=== PATIENT | female | born 1945 | race Caucasian/White ===

== ENCOUNTER 2016-03-16 08:01 | Day surgery (SDC) | payer OTHER ==
[~2016-03-16] VITALS: Ht 144.8 cm; Wt 68.3 kg
[~2016-03-16 08:01] MED LIST: CARV12.5 PO; DVN/160 PO; MAGN400T6 PO; OMEP40CA41 PO; PRAV20TA PO
[2016-03-16] MEDS ORDERED: MULT-513 PO (08:53)
[2016-03-16] MEDS ORDERED: ASPI81TA28 PO (08:53)
[2016-03-16 08:54] VITALS: BP 180/71; PULSE 74; TEMP 36.4; O2SAT 97; Ht 144.8 cm; Wt 68.3 kg
[2016-03-16] MEDS ORDERED: VITACAP26 PO (08:54)
[2016-03-16 08:59] LABS: PLATELET COUNT 259 K/uL (130-400)
[2016-03-16 09:08] LABS: INR 1.1 (0.9-1.1); PARTIAL THROMBOPLASTIN RATIO 1.1; PROTHROMBIN TIME (PATIENT) 11.6 SECONDS (9.0-12.0)
[2016-03-16 10:50] VITALS: BP 178/76; PULSE 80; TEMP 36.6; O2SAT 96
[2016-03-16 11:05] VITALS: BP 154/98; PULSE 88; TEMP 36.9; O2SAT 95
--- NOTE | 2016-03-16 11:10 | Discharge Instructions ---
Discharge Instructions Procedure Procedure Date: Mar 16, 2016. Reason for visit: Hemachromatosis. Discharge Discharge Date: Mar 16, 2016. Discharge Diagnosis: same Instructions Activity Recommendations: No limitations Return to School/Work: no limitations Recommended Home Diet: Resume Previous Diet Provider Instructions: ACTIVITY RECOMMENDATIONS: * Rest today. * Resume regular activity in one day. MEDICATIONS: * May take Tylenol or Ibuprofen as needed for pain. DIET: * Resume previous diet. SPECIAL CARE INSTRUCTIONS: Call your doctor if: * Temperature above 101 degrees F. * Pain not relieved by pain medicine ordered. * Increased drainage or redness from incision. * Notify your doctor with any questions or concerns. Call your doctor or go to the nearest Emergency Department if you experience: * Increased chest pain or shortness of breath. FOLLOW UP VISIT: Follow-up with Referring Physician as scheduled. Allergies Coded Allergies: Codeine (Verified Allergy, Intermediate, vomiting, 03/16/16) Martin Lombardo Recommendations: Call your doctor if: * Temperature above 101 degrees * Pain not relieved by pain medicine ordered * There is increased drainage or redness from any incision * You have any unanswered questions or concerns. Your Doctors Instructions noted above were prepared by provider Guero Cota. Patient Signature Section: Patient Instructions Signature Page Aysha Perry Patient (or Guardian) Signature/Date: I have read and understand the instructions given to me by my caregivers. Caregiver/RN/Doctor Signature/Date: The above-named patient and/or guardian has received patient instructions on this date. + Original Patient Signature Page (only) stays with chart. Please make copy for patient.
[2016-03-16] MEDS ORDERED: ACETAMINOPHEN 500 MG TAB PO PRN (11:15)
[2016-03-16 11:20] VITALS: BP 183/92; PULSE 85; TEMP 36.9; O2SAT 94
[2016-03-16 11:54] VITALS: BP 156/100; PULSE 90; O2SAT 92
[2016-03-16 12:25] VITALS: BP 128/51; PULSE 98; TEMP 36.7; O2SAT 95
--- NOTE | 2016-03-16 12:43 | DIAGNOSTIC IMAGING REPORT ---
ULTRASOUND GUIDED LIVER PARENCHYMAL CORE NEEDLE BIOPSY CLINICAL HISTORY: Hemachromatosis COMPARISON STUDY: Abdominal ultrasound 12/17/2015. PROCEDURE: Written informed consent was obtained. The patient was laid in the left lateral decubitus position. Preliminary imaging of the right upper quadrant was performed to determine a safe needle entry site. 1% lidocaine was used for local anesthesia. A small skin neck was made within the right upper quadrant/flank. Under fluoroscopic guidance a 20-gauge x 9 cm biopsy needle was inserted into the right hepatic lobe. A single specimen was obtained and sent to pathology. The patient tolerated the procedure well. There were no immediate complications. The patient was transported to the [facility] in stable condition. IMPRESSION: Successful ultrasound-guided liver parenchymal biopsy with a specimen sent to pathology. Electronically signed by: Guero Cota M.D. 03/16/2016 12:42 PM Dictated Date/Time: 03/16/2016 11:01 AM
== END 2016-03-16 13:00 | disposition home or self-care (01) ==
LOC: C.ACU 08:01
PROVIDERS: ATTEND Internal Medicine Hematology & Oncology
DX: K74.69 Other cirrhosis of liver (principal)

== ENCOUNTER → 2016-04-06 | Outpatient (CLI) | payer OTHER ==
[~2016-04-06] MED LIST changes: +ASPI81TA28 PO; -CARV12.5 PO; -DVN/160 PO; -MAGN400T6 PO; +MULT-513 PO; -PRAV20TA PO; +VITACAP26 PO
== END | disposition home or self-care (01) ==
LOC: C.MAMM 09:58
PROVIDERS: ATTEND Family Medicine
DX: M81.0 Age-related osteoporosis without current pathological fracture (principal)

== ENCOUNTER → 2016-07-31 | Outpatient (CLI) | payer OTHER ==
[~2016-07-31] MED LIST changes: +ASCO-63 PO; +BIOF500C2 PO; +CARV6.252 PO; +DVN/160 PO
--- NOTE | 2016-07-31 12:02 | DIAGNOSTIC IMAGING REPORT ---
L-SPINE MIN 4 VIEWS ROUTINE CLINICAL HISTORY: LOW BACK PAIN COMPARISON STUDY: No previous studies for comparison. FINDINGS: There are minor multilevel superior endplate deformities, possibly old. No traumatic subluxations are visualized. No destructive lesions are evident. IMPRESSION: Minor multilevel superior endplate deformities, possibly old. No subluxations identified. No destructive lesions visualized Electronically signed by: Greyson Loyola M.D. 07/31/2016 12:01 PM Dictated Date/Time: 07/31/2016 11:59 AM
--- NOTE | 2016-07-31 12:05 | DIAGNOSTIC IMAGING REPORT ---
RIGHT HIP UNILATERAL 2 VIEWS, PELVIS 1 OR 2 VIEW ROUTINE CLINICAL HISTORY: RIGHT HIP PAIN Right COMPARISON STUDY: None. FINDINGS: No fracture or dislocation within the pelvis or hips. The sacrum appears intact. Mild cartilage space narrowing within the right hip with small marginal osteophytes. This is consistent with mild osteoarthritis. Moderate osteitis pubis. IMPRESSION: 1. No acute fracture or dislocation within the pelvis are hips. 2. Mild right hip osteoarthritis. Electronically signed by: Guero Cota M.D. 07/31/2016 12:04 PM Dictated Date/Time: 07/31/2016 11:59 AM
== END | disposition home or self-care (01) ==
LOC: C.RAD1850 11:17
PROVIDERS: ATTEND Physician Assistant
DX: M25.551 Pain in right hip (principal); M54.5 Low back pain

== ENCOUNTER → 2016-12-11 | Outpatient (CLI) | payer OTHER ==
--- NOTE | 2016-12-11 07:44 | DIAGNOSTIC IMAGING REPORT ---
ABDOMEN LIMITED (US) HISTORY: 71 years-old Female CIRRHOSIS,R/O HEPATOMA cirrhotic liver disease COMPARISON: Abdominal ultrasound 12/17/2015 TECHNIQUE: Multiple real-time sonographic images of the abdominal right upper quadrant were obtained assessing grayscale appearance and color flow FINDINGS: The pancreas is suboptimally visualized secondary to body habitus and obscuring bowel gas. The imaged pancreatic head appears normal. Gallbladder is unremarkable without wall thickening, pericholecystic fluid collections or shadowing cholelithiasis. No right upper quadrant tenderness reported. The common bile duct measures 0.4 cm. Trace perihepatic ascites. There is heterogeneity with increased echogenicity of the liver suggesting fatty infiltration. Mild marginal nodularity is also present within the liver. No focal hepatic mass lesions identified. Imaged portions of the right kidney are unremarkable without hydronephrosis. IMPRESSION: 1. Increased echogenicity and heterogeneity of the hepatic parenchyma suggests fatty infiltration with mild marginal nodularity suspicious for cirrhotic liver disease. Trace perihepatic ascites. 2. No focal hepatic mass lesions. 3. Normal sonographic appearance of the gallbladder. The above report was generated using voice recognition software. It may contain grammatical, syntax or spelling errors. Electronically signed by: Randolph Lynn M.D. 12/11/2016 7:43 AM Dictated Date/Time: 12/11/2016 7:39 AM
== END | disposition home or self-care (01) ==
LOC: C.ULTR 07:11
PROVIDERS: ATTEND Internal Medicine Gastroenterology
DX: K74.60 Unspecified cirrhosis of liver (principal)

== ENCOUNTER → 2017-01-17 | Day surgery (SDC) | payer OTHER ==
[2017-01-02 11:07] VITALS: Ht 144.8 cm; Wt 69.1 kg
[~2017-01-17] VITALS: Ht 144.8 cm; Wt 69.1 kg
[~2017-01-17] MED LIST changes: -ASCO-63 PO; -BIOF500C2 PO; -MULT-513 PO; -OMEP40CA41 PO; +PROPOFOL IV EMULSION 10 MG/ML 20 ML VIAL IV ONE; -VITACAP26 PO
--- NOTE | 2017-01-17 14:28 | Endo History and Physical ---
History & Physical Date of Service: Jan 17, 2017. Chief Complaint: Hx of polyps Referring Physician: denise History of Present Illness For colonoscopy Past Medical History Reflux, Hypertension Past Surgical History Hx Cardiac Surgery: No Hx Internal Defibrillator: No Hx Pacemaker: No Hx Abdominal Surgery: Yes (TUBAL LIGATION, APPY) Hx of Implantable Prosthesis: No Hx Post-Op Nausea and Vomiting: No Hx Cancer Surgery: No Hx Thoracic Surgery: No Hx Orthopedic: Yes (RT RCR AND REVISION, RT 4TH TOE AMPUTATION) Hx Urinary Tract Surgery: No Family History Colon CA, Polyp, IBD Social History Smoking Status: Former Smoker Hx Substance Use: No Hx Alcohol Use: Yes (2 GLASS WINE DAILY) Allergies Coded Allergies: Codeine (Verified Allergy, Intermediate, vomiting, 01/02/17) Current Medications Reported Home Medications Medications Dose Route/Sig Max Daily Dose Days Date Category Dose Instructions Coreg (Carvedilol) 6.25 Mg Tab 1 Tab PO BID 12/22/16 Reported PT STATES HAS NOT TAKEN IN ABOUT 1 MONTH "I QUIT TAKING EVERYTHING" Diovan (Valsartan) 160 Mg Tab 160 Mg PO DAILY PRN 12/22/16 Reported Aspirin Ec (Aspirin) 81 Mg Tab 81 Mg PO DAILY 03/16/16 Reported Vital Signs Weight (Kilograms): 69.09 Height (Feet): 4 Height (Inches): 9 Physical Exam General Appearance: + pertinent finding (small stature) Respiratory/Chest: Respiratory effort: no dyspnea Cardiovascular: Heart Auscultation: RRR Abdomen: Inspection & Palpation: soft Assessment and Plan Hx polyps for colonoscopy
--- NOTE | 2017-01-17 14:52 | Discharge Instructions ---
Endoscopy Patient Instructions Date / Procedure(s) Performed Jan 17, 2017. Colonoscopy Allergy Information Coded Allergies: Codeine (Verified Allergy, Intermediate, vomiting, 01/02/17) Discharge Date / Findings Jan 17, 2017. Hemorrhoids Medication Instructions Restart Stopped Medication(s): resume meds Reported Home Medications Medications Dose Route/Sig Max Daily Dose Days Date Category Dose Instructions Coreg (Carvedilol) 6.25 Mg Tab 1 Tab PO BID 12/22/16 Reported PT STATES HAS NOT TAKEN IN ABOUT 1 MONTH "I QUIT TAKING EVERYTHING" Diovan (Valsartan) 160 Mg Tab 160 Mg PO DAILY PRN 12/22/16 Reported Aspirin Ec (Aspirin) 81 Mg Tab 81 Mg PO DAILY 03/16/16 Reported Provider Instructions Activity Restrictions - No exercising or heavy lifting for 24 hours. - Do not drink alcohol the day of the procedure. - Do not drive a car or operate machinery until the day after the procedure. - Do not make any important decisions or sign important papers in 24 hours after the procedure. Following Day: - Return to full activity which may include returning to work/school. Diet Start your diet with liquids and light foods (jello, soup, juice, toast). Then eat your usual diet if not nauseated. Treatment For Common After Affects For mild abdominal pain, bloating, or excessive gas: - Rest - Eat lightly - Lie on right side Follow-Up Information Follow-up with Dr Noriega as scheduled Anesthesia Information What You Should Know You have had a procedure that required some medicine to reduce anxiety and discomfort. This treatment is called moderate sedation. After receiving the treatment, you may be sleepy, but you will be able to breathe on your own. The effects of the treatment may last for several hours. Follow these instructions along with Activity/Diet recommendations noted above: * Do NOT do anything where dizziness or clumsiness would be dangerous. * Rest quietly at home today, then you can be up and about tomorrow. * Have a responsible person stay with you the rest of today. * You may have had an I.V. today. If so, you may take the dressing off later today. Recommendations Call your doctor if: * Trouble breathing * Continuous vomiting for more than 24 hours * Temperature above 101 degrees * Severe abdominal pain or bloating * Pain not relieved by pain medicine ordered * There is increased drainage or redness from any incision * A large amount of rectal bleeding greater than 2-3 tablespoons. (If you had a polyp/s removed or have hemorrhoids, a small amount of blood - from the rectum is to be expected.) * You have any unanswered questions or concerns. IN THE EVENT OF A SERIOUS EMERGENCY, GO TO THE NEAREST EMERGENCY ROOM Your discharge instructions were prepared by provider Dilan Palma. Patient Instructions Signature Page Aysha Perry Patient (or Guardian) Signature/Date: I have read and understand the instructions given to me by my caregivers. Caregiver/RN/Doctor Signature/Date: The above-named patient and/or guardian has received patient instructions on this date. + Original Patient Signature Page (only) stays with chart. Please make copy for patient.
--- NOTE | 2017-01-17 14:55 | GI REPORT ---
Procedure Date: 01/17/2017 2:18 PM Procedure: Colonoscopy Indications: Personal history of colonic polyps Medicines: Propofol total dose 200 mg IV Complications: No immediate complications. Estimated Blood Loss: Estimated blood loss: none. Procedure: Pre-Anesthesia Assessment: - Prior to the procedure, a History and Physical was performed, and patient medications, allergies and sensitivities were reviewed. The patient's tolerance of previous anesthesia was reviewed. - The risks and benefits of the procedure and the sedation options and risks were discussed with the patient. All questions were answered and informed consent was obtained. After I obtained informed consent, the scope was passed under direct vision. Throughout the procedure, the patient's blood pressure, pulse, and oxygen saturations were monitored continuously. The scope was introduced through the anus and advanced to the cecum, identified by appendiceal orifice and ileocecal valve. The colonoscopy was performed without difficulty. The patient tolerated the procedure well. The quality of the bowel preparation was excellent. Findings: Non-bleeding internal hemorrhoids were found during endoscopy. The hemorrhoids were mild. Impression: - Non-bleeding internal hemorrhoids. - No specimens collected. Recommendation: - Discharge patient to home (ambulatory). - Continue present medications. - Repeat colonoscopy in 5 years for surveillance. - Return to primary care physician PRN. Dilan Palma M.D. Dilan Palma MD 01/17/2017 2:54:57 PM This report has been signed electronically. Note Initiated On: 01/17/2017 2:18 PM I attest to the content of the Intraoperative Record and orders documented therein, exceptions below
[2017-01-17 15:26] VITALS: BP 160/84; PULSE 77; O2SAT 98
--- NOTE | 2017-01-17 15:29 | Anesthesiology Progress Note ---
Anesthesia Post Op Note Date & Time Jan 17, 2017 at 15:29 Vital Signs Pain Intensity: 0 Vital Signs Past 12 Hours Date Time Temp Pulse Resp B/P (MAP) Pulse Ox O2 Delivery O2 Flow Rate FiO2 01/17/17 15:11 76 16 177/84 (115) 100 Room Air 01/17/17 14:56 75 16 123/67 (85) 96 Room Air 01/17/17 14:23 36.9 79 20 157/64 (95) 96 Room Air Notes Mental Status: alert / awake / arousable, participated in evaluation Pt Amnestic to Procedure: Yes Nausea / Vomiting: adequately controlled Pain: adequately controlled Airway Patency, RR, SpO2: stable & adequate BP & HR: stable & adequate Hydration State: stable & adequate Anesthetic Complications: no major complications apparent
== END | disposition home or self-care (01) ==
LOC: C.GI 13:33
PROVIDERS: ATTEND Internal Medicine Gastroenterology
DX: Z86.010 Personal history of colon polyps (principal); K64.8 Other hemorrhoids; Z80.0 Family history of malignant neoplasm of digestive organs; I10 Essential (primary) hypertension; E78.5 Hyperlipidemia, unspecified; M19.90 Unspecified osteoarthritis, unspecified site; K21.9 Gastro-esophageal reflux disease without esophagitis; R56.9 Unspecified convulsions; Z90.49 Acquired absence of other specified parts of digestive tract; Z89.421 Acquired absence of other right toe(s); Z87.891 Personal history of nicotine dependence; Z79.82 Long term (current) use of aspirin

== ENCOUNTER → 2017-05-31 | Outpatient (CLI) | payer OTHER ==
[~2017-05-31] MED LIST changes: -CARV6.252 PO; -DVN/160 PO; -PROPOFOL IV EMULSION 10 MG/ML 20 ML VIAL IV ONE
[2017-05-31 16:55] LABS: BASO ABS # 0.07 K/uL (0-0.2); EOS % 2.3 %; EOS ABS # 0.16 K/uL (0-0.5); HEMATOCRIT 33.6 % (37-47); HEMOGLOBIN 10.3 g/dL (12.0-16.0); IG# 0.01 K/uL (0.00-0.02); LYMPH % 28.7 %; LYMPH ABS # 2.01 K/uL (1.2-3.4); MEAN CELL VOLUME 82.2 fL (80-100); MEAN CORPUSCULAR HEMOGLOBIN 25.2 pg (25-34); MEAN CORPUSCULAR HGB CONC 30.7 g/dl (32-36); MEAN PLATELET VOLUME 11.1 fL (7.4-10.4); MONO % 8.7 %; MONO ABS # 0.61 K/uL (0.11-0.59); NEUT % 59.2 %; NEUT ABS # 4.14 K/uL (1.4-6.5); PLATELET COUNT 189 K/uL (130-400)
== END | disposition home or self-care (01) ==
LOC: C.LABPBG 12:25
PROVIDERS: ATTEND Internal Medicine Hematology & Oncology
DX: E83.110 Hereditary hemochromatosis (principal)

== ENCOUNTER → 2017-06-18 | Outpatient (CLI) | payer OTHER ==
--- NOTE | 2017-06-18 16:22 | DIAGNOSTIC IMAGING REPORT ---
C-SPINE ROUTINE 4 OR 5 VIEWS HISTORY: Pain M54.2, M54.81 COMPARISON: None. FINDINGS: The cervical spine is visualized from C1 through the superior endplate of T1. There is no fracture. Minimal grade 1 anterolisthesis C5 on C6 secondary to degenerative changes of posterior elements. Moderate degenerative disc change throughout the entire cervical region. Moderate osteophytic narrowing of the neuroforamina bilaterally at C4-C6. Prevertebral soft tissues and the atlantodens interval are intact. IMPRESSION: Moderate degenerative change primarily the mid to lower cervical region. Moderate osteophytic narrowing of several neural foramina bilaterally. No acute process. The above report was generated using voice recognition software. It may contain grammatical, syntax or spelling errors. Electronically signed by: Christiano Amos M.D. 06/18/2017 4:21 PM Dictated Date/Time: 06/18/2017 4:20 PM
== END | disposition home or self-care (01) ==
LOC: C.RAD1850 15:31
PROVIDERS: ATTEND Physician Assistant
DX: M54.2 Cervicalgia (principal); M54.81 Occipital neuralgia

== ENCOUNTER → 2017-09-10 | Outpatient (CLI) | payer OTHER ==
[~2017-09-10] MED LIST changes: +ASCO100061 PO; +CARV3.122 PO; +MAGN400T6 PO; +PRLSR20 PO; +VALS40TA2 PO
[2017-09-10 13:15] LABS: BASO % 0.8 %; BASO ABS # 0.06 K/uL (0-0.2); EOS % 2.4 %; EOS ABS # 0.18 K/uL (0-0.5); HEMATOCRIT 32.6 % (37-47); HEMOGLOBIN 9.9 g/dL (12.0-16.0); IG# 0.02 K/uL (0.00-0.02); LYMPH % 23.6 %; LYMPH ABS # 1.74 K/uL (1.2-3.4); MEAN CELL VOLUME 84.5 fL (80-100); MEAN CORPUSCULAR HEMOGLOBIN 25.6 pg (25-34); MEAN CORPUSCULAR HGB CONC 30.4 g/dl (32-36); MEAN PLATELET VOLUME 10.8 fL (7.4-10.4); MONO % 11.2 %; MONO ABS # 0.83 K/uL (0.11-0.59); NEUT % 61.7 %; NEUT ABS # 4.55 K/uL (1.4-6.5); PLATELET COUNT 184 K/uL (130-400); RED CELL DISTRIBUTION WIDTH CV 20.7 % (11.5-14.5); RED CELL DISTRIBUTION WIDTH SD 63.2 fL (36.4-46.3); WHITE BLOOD COUNT 7.38 K/uL (4.8-10.8)
[2017-09-10 13:39] LABS: ALBUMIN 3.2 gm/dl (3.4-5.0); ALKALINE PHOSPHATASE 158 U/L (45-117); ALT/SGPT 29 U/L (12-78); AST/SGOT 57 U/L (15-37); BLOOD UREA NITROGEN 15 mg/dl (7-18); CALCIUM 8.5 mg/dl (8.5-10.1); CARBON DIOXIDE 28 mmol/L (21-32); GLUCOSE 101 mg/dl (70-99); POTASSIUM 4.2 mmol/L (3.5-5.1); SODIUM 139 mmol/L (136-145); TOTAL PROTEIN 7.2 gm/dl (6.4-8.2)
== END | disposition home or self-care (01) ==
LOC: C.LABPBG 08:38
PROVIDERS: ATTEND Internal Medicine Hematology & Oncology
DX: E83.110 Hereditary hemochromatosis (principal)

== ENCOUNTER 2017-09-19 18:08 | Emergency (ER) | payer OTHER ==
[~2017-09-19] VITALS: Ht 144.8 cm; Wt 68.8 kg
[~2017-09-19 18:08] MED LIST changes: -ASCO100061 PO; -CARV3.122 PO; -MAGN400T6 PO; -PRLSR20 PO; -VALS40TA2 PO
[2017-09-19 18:11] VITALS: TEMP 36.7; Ht 144.8 cm; Wt 68.8 kg
[2017-09-19] MEDS ORDERED: METOCLOPRAMIDE HCL INJ 5 MG/ML 2 ML VIAL IV STA (18:24)
[2017-09-19] MEDS ORDERED: OPTIRAY 320 IV PRN (18:30)
[2017-09-19] MEDS: FENTANYL CITRATE INJ 50 MCG/1 ML 2 ML VIAL IV PRN ×3 (18:36→19:20)
[2017-09-19 18:38] LABS: ISTAT CREATININE 0.9 mg/dl (0.6-1.3); ISTAT IONIZED CALCIUM 1.04 mmol/l (1.12-1.32); ISTAT POTASSIUM 4.2 mEq/L (3.3-5.0)
[2017-09-19 18:41] LABS: BASO ABS # 0.08 K/uL (0-0.2); EOS % 1.3 %; HEMATOCRIT 33.9 % (37-47); HEMOGLOBIN 10.4 g/dL (12.0-16.0); IG# 0.01 K/uL (0.00-0.02); LYMPH % 27.2 %; MEAN CELL VOLUME 83.5 fL (80-100); MEAN CORPUSCULAR HEMOGLOBIN 25.6 pg (25-34); MEAN CORPUSCULAR HGB CONC 30.7 g/dl (32-36); MEAN PLATELET VOLUME 10.5 fL (7.4-10.4); MONO % 9.3 %; MONO ABS # 0.72 K/uL (0.11-0.59); NEUT % 61.1 %; NEUT ABS # 4.72 K/uL (1.4-6.5); PLATELET COUNT 189 K/uL (130-400); RED CELL DISTRIBUTION WIDTH CV 19.7 % (11.5-14.5); RED CELL DISTRIBUTION WIDTH SD 59.7 fL (36.4-46.3); WHITE BLOOD COUNT 7.73 K/uL (4.8-10.8)
--- NOTE | 2017-09-19 18:45 | DIAGNOSTIC IMAGING REPORT ---
CHEST ONE VIEW PORTABLE CLINICAL HISTORY: Atypical chest pain COMPARISON STUDY: 12/22/2016 FINDINGS: The cardiac and mediastinal contours are normal. There is no evidence of focal pulmonary consolidation. There is no evidence of failure. No pleural effusions are visualized.[ IMPRESSION: No active disease in the chest. Electronically signed by: Greyson Loyola M.D. 09/19/2017 6:44 PM Dictated Date/Time: 09/19/2017 6:44 PM
[2017-09-19 18:51] LABS: INR 1.1 (0.9-1.1); PTT PATIENT 26.8 SECONDS (21.0-31.0)
[2017-09-19] MEDS ORDERED: LABETALOL HCL IV 5 MG/ML 20ML IV STA ×2 (18:51→19:16)
--- NOTE | 2017-09-19 19:00 | DIAGNOSTIC IMAGING REPORT ---
CHEST COMBO ANGIO DISSECTION CLINICAL HISTORY: Atypical chest pain radiating to the back. Possible aortic dissection. COMPARISON STUDY: No previous studies for comparison. FINDINGS: Unenhanced images were obtained through the chest. The patient was then scanned in a dynamic helical fashion during intravenous administration 118 cc Optiray 320. Aortic phase angiographic images were acquired. MIP imaging was performed. A dose reduction technique was utilized according to the principles of ALARA. Unenhanced images reveal intimal separation, suspicious for a dissection. Postcontrast images reveal no thyroid masses. The ascending thoracic aorta appears normal. There is a type B dissection beginning at the level of the left subclavian artery. There are no intimal flaps visualized within the great vessels. There are extensive atheromatous changes involving the proximal right subclavian artery and proximal left subclavian artery. The dissection extends into the abdomen. The celiac artery arises from the true lumen. The superior mesenteric artery arises from the true lumen. There is severe atheromatous changes involving the superior mesenteric origin. The right renal artery arises from the true lumen. The left renal artery is more difficult to assess but also likely arises from the true lumen. There appears to be a proximal left renal artery stenosis. There are no pleural effusions. There is no acute parenchymal consolidation. There are no pathologically enlarged axillary, mediastinal, or hilar lymph nodes. Images involving the upper abdomen reveal a cirrhotic morphology of the liver. There is a small amount of perihepatic fluid. There is trace perisplenic fluid. IMPRESSION: 1. 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 Extensive atheromatous changes with bilateral subclavian artery stenoses, a superior mesenteric artery origin stenosis, and a left renal artery artery stenosis. 3. Cirrhotic morphology of the liver. Small amount of perihepatic fluid. Trace perisplenic fluid. Electronically signed by: Greyson Loyola M.D. 09/19/2017 6:59 PM Dictated Date/Time: 09/19/2017 6:48 PM
[2017-09-19 19:03] LABS: ALBUMIN 3.5 gm/dl (3.4-5.0); CALCIUM 8.9 mg/dl (8.5-10.1); POTASSIUM 4.2 mmol/L (3.5-5.1); TOTAL PROTEIN 7.8 gm/dl (6.4-8.2)
[2017-09-19 19:08] VITALS: O2SAT 98
--- NOTE | 2017-09-19 19:10 | DIAGNOSTIC IMAGING REPORT ---
CT ABD/PELVIS IV CONTRAST ONLY CLINICAL HISTORY: Chest and abdominal pain. Aortic dissection. COMPARISON STUDY: None. TECHNIQUE: Following the IV administration of 118 mL of Optiray-320, CT scan of the abdomen and pelvis was performed from the lung bases to the proximal femurs. Images are reviewed in the axial, sagittal, and coronal planes. IV contrast was administered without complication. A dose lowering technique was utilized adhering to the principles of ALARA. CT DOSE: FINDINGS: Lower chest: There is an aortic dissection. Liver: The liver has a cirrhotic morphology. There is an 8 mm hypodense lesion within the caudate lobe, likely representing a cyst. There is a small amount of perihepatic fluid. Gallbladder: Unremarkable. Spleen: Normal in size and attenuation. There is trace perisplenic fluid. Pancreas: Unremarkable. Adrenal glands: Unremarkable. Kidneys: There is decreased attenuation involving the inferior pole of the left kidney, consistent with a renal infarct. Bowel: There are no transition zones indicate bowel obstruction. There is no evidence of acute appendicitis. There is no evidence of acute diverticulitis. Peritoneum: There is a small amount of free intraperitoneal fluid. Vasculature: There is an abdominal aortic dissection. There are atheromatous changes with a proximal superior mesenteric artery stenosis. The dissection does not appear to extend into the iliac arteries. There are moderately extensive atheromatous changes. There is a probable proximal left common iliac artery stenosis. It is difficult to determine whether the left renal artery arises from the true or false lumen. The right renal artery appears to arise from the true lumen. Adenopathy: None. Pelvic viscera: The bladder, and pelvic viscera are unremarkable. Skeletal structures: No destructive osseous lesions are seen. IMPRESSION: 1. 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 Moderately extensive atheromatous disease. Left common iliac artery stenosis. 4. Cirrhotic morphology of the liver. Low volume ascites. Electronically signed by: Greyson Loyola M.D. 09/19/2017 7:09 PM Dictated Date/Time: 09/19/2017 7:01 PM
[2017-09-19] MEDS ORDERED: CARV3.122 PO (19:32)
[2017-09-19] MEDS ORDERED: ASCO100061 PO (19:32)
[2017-09-19] MEDS ORDERED: VALS40TA2 PO (19:32)
[2017-09-19] MEDS ORDERED: PRLSR20 PO (19:32)
[2017-09-19] MEDS ORDERED: MAGN400T6 PO (19:32)
[2017-09-19] MEDS: NSS IV PRN ×3 (19:38→19:56)
[2017-09-19] MEDS: ESMOLOL IV PRN ×3 (19:38→19:56)
[2017-09-19] MEDS: HYDROmorphone INJ 0.5 MG/0.5 ML SYR IV PRN ×2 (19:41→20:02)
[2017-09-19 20:49] VITALS: BP 104/45; PULSE 70; O2SAT 92
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
== END 2017-09-19 20:40 | disposition short-term general hospital (02) ==
LOC: C.EDB 18:09 → C.EDA 20:40
DX: I71.03 Dissection of thoracoabdominal aorta (principal); R94.31 Abnormal electrocardiogram [ECG] [EKG]; M54.9 Dorsalgia, unspecified; Z79.82 Long term (current) use of aspirin; Z79.899 Other long term (current) drug therapy; Z88.6 Allergy status to analgesic agent

== ENCOUNTER 2017-09-28 23:04 | Inpatient (IN) | payer OTHER ==
[~2017-09-28] VITALS: Ht 143.5 cm; Wt 71.7 kg
[~2017-09-28 23:04] MED LIST changes: +ASCO100061 PO; +CARV3.122 PO; +MAGN400T6 PO; +PRLSR20 PO; +VALS40TA2 PO
[2017-09-28] MEDS ORDERED: FENTANYL CITRATE INJ 50 MCG/1 ML 2 ML VIAL IV STA (23:35)
--- NOTE | 2017-09-28 23:50 | EMERGENCY ROOM VISIT NOTE ---
History Report prepared by Alexei: Adrian Johansen Under the Supervision of: Dr. Steve Dhillon M.D. First contact with patient: 23:26 Chief Complaint: SWELLING TO EXTREMITY Stated Complaint: SWELLING IN LEGS AND FEET History of Present Illness The patient is a 72 year old female who presents to the Emergency Room with complaints of worsening right thigh pain that began recently. Patient describes the pain as a "15/10" in severity. Patient adds she has intermittent back and abdominal pain. Patient states she was discharged from [facility] yesterday after having an aortic dissection. She states the surgery was performed "through her groin". Patient states while she was admitted at [facility] she informed the hospital staff of her right thigh pain but states she was given no answers. Patient adds she has had worsening swelling in her feet since discharge. Patient states she has taken Tylenol and Oxycodone for her pain with her last dose being earlier this evening. She denies taking these prior to her surgery. Patient adds she takes Plavix. Patient states her last bowel movement was yesterday. She denies SOB, vomiting, and a history of anxiety. Source of History: patient Onset: Recent Position: leg (Right thigh) Timing: worsening Modifying Factors (Relieving): other (None) Associated Symptoms: + abdominal pain, + back pain, No SOB, No vomiting Review of Systems See HPI for pertinent positives & negatives. A total of 10 systems reviewed and were otherwise negative. Past Medical & Surgical Medical Problems: (1) Cirrhosis of liver (2) Hemochromatosis Family History No pertinent family history Social History Smoking Status: Never Smoker Marital Status: Housing Status: lives with significant other Current/Historical Medications Scheduled Ascorbic Acid (Ascorbic Acid), 1 TAB PO QAM Aspirin (Aspirin Ec), 81 MG PO DAILY Carvedilol (Coreg), 3.125 MG PO BID Clopidogrel (Plavix), 75 MG PO DAILY Docusate Sodium (Colace), 1 CAP PO BID Magnesium Oxide (Mag-Ox), 400 MG PO QAM Omeprazole (Prilosec), 20 MG PO QAM Scheduled PRN Oxycodone Hcl (Oxycodone Hcl), 2.5 MG PO Q4 PRN for Moderate Pain Allergies Coded Allergies: Codeine (Verified Allergy, Intermediate, vomiting, 09/29/17) Physical Exam Vital Signs Date Time Temp Pulse Resp B/P (MAP) Pulse Ox O2 Delivery O2 Flow Rate FiO2 09/29/17 03:18 66 09/29/17 01:42 73 18 143/74 98 Room Air 09/29/17 00:58 65 18 173/98 100 Room Air 09/28/17 23:22 69 09/28/17 23:11 36.5 65 18 119/60 98 Room Air Physical Exam GENERAL: Patient is moderately uncomfortable-appearing, crying, and wreathing around the bed. EYES: No scleral icterus, unremarkable pupils. ENT: Mucous membranes moist, no nasal congestion. NECK: No masses appreciated, no meningismus, trachea is midline. RESPIRATORY: No dyspnea. Clear to auscultation and equal bilaterally. No wheeze , no rhonchi. CARDIOVASCULAR: Regular rate and rhythm. No murmurs, rubs, gallops appreciated. GASTROINTESTINAL: Cereus weeping from bilateral groin wounds right worse than left. Bilateral groin incision stapled with mild surrounding erythema. Severe tenderness to palpation anywhere around laceration and distal to right knee otherwise abdomen soft, no peritonitis. Bowel sounds positive. No masses appreciated. BACK: No midline tenderness, no CVA tenderness EXTREMITIES: Pitting edema of bilateral lower extremities extending to mid- abdomen otherwise normal motion all extremities, no cyanosis. NEUROLOGIC: Alert and oriented, no acute motor or sensory deficits, no focal weakness, cranial nerves grossly intact. SKIN: No rash, no jaundice, no diaphoresis. Medical Decision & Procedures ER Provider Diagnostic Interpretation: Radiology results stated below per my interpretation: 1-VIEW CHEST X-RAY: X-ray shows mild congestive changes with slight effusions, no pneumothorax or pneumonia, and aortic stenting extending from cardiac notch to below the diaphragm. KUB X-RAY: X-ray shows nonspecific bowel gas consistent with mild ileus, diffuse epididymis changes through abdominal wall, and no free air appreciated. Stat Rad Radiology results and stated below per my review and radiologist interpretation: CT ABDOMEN & PELVIS With Contrast: Comparison 09/19/17 exam. Interval thoracic aortic stent graft placement for treatment of previously diagnosed aortic dissection. This extends to the diaphragm level, but does not involve the majority abdominal aorta. Interval stenting across the left renal artery. Persistent dissection flap seen involving the majority of the abdominal aorta. Compared to the prior study, there is increasing amount of fluid about the spleen and the liver which is low in density. Moderate amount of free fluid in the pelvis is low to intermediate in density and not compatible with acute blood. This is also increased fluid volume compared to prior study. No appendicitis, colitis, diverticulitis or bowel obstruction. Gallbladder is distended. No wall thickening. Cirrhosis identified again. Pancreas is unremarkable. No obstructive uropathy. Anasarca. Radiologist: Rogelio Hurd M.D. Laboratory Results 09/29/17 00:05 Red Blood Count 3.52, Mean Corpuscular Volume 86.1, Mean Corpuscular Hemoglobin 27.6, Mean Corpuscular Hemoglobin Concent 32.0, Mean Platelet Volume 9.9, Neutrophils (%) (Auto) 57.2, Lymphocytes (%) (Auto) 24.9, Monocytes (%) (Auto) 13.9, Eosinophils (%) (Auto) 3.0, Basophils (%) (Auto) 0.7, Neutrophils # (Auto ) 5.00, Lymphocytes # (Auto) 2.17, Monocytes # (Auto) 1.21, Eosinophils # (Auto ) 0.26, Basophils # (Auto) 0.06 09/29/17 00:05 Test 09/29/17 00:05 White Blood Count 8.73 K/uL (4.8-10.8) Red Blood Count 3.52 M/uL (4.2-5.4) Hemoglobin 9.7 g/dL (12.0-16.0) Hematocrit 30.3 % (37-47) Mean Corpuscular Volume 86.1 fL (80-100) Mean Corpuscular Hemoglobin 27.6 pg (25-34) Mean Corpuscular Hemoglobin Concent 32.0 g/dl (32-36) Platelet Count 187 K/uL (130-400) Mean Platelet Volume 9.9 fL (7.4-10.4) Neutrophils (%) (Auto) 57.2 % Lymphocytes (%) (Auto) 24.9 % Monocytes (%) (Auto) 13.9 % Eosinophils (%) (Auto) 3.0 % Basophils (%) (Auto) 0.7 % Neutrophils # (Auto) 5.00 K/uL (1.4-6.5) Lymphocytes # (Auto) 2.17 K/uL (1.2-3.4) Monocytes # (Auto) 1.21 K/uL (0.11-0.59) Eosinophils # (Auto) 0.26 K/uL (0-0.5) Basophils # (Auto) 0.06 K/uL (0-0.2) RDW Standard Deviation 68.3 fL (36.4-46.3) RDW Coefficient of Variation 21.7 % (11.5-14.5) Immature Granulocyte % (Auto) 0.3 % Immature Granulocyte # (Auto) 0.03 K/uL (0.00-0.02) Polychromasia 1+ Anisocytosis PRESENT Anion Gap 6.0 mmol/L (3-11) Estimated GFR () 67.2 Estimated GFR (Non- 57.9 BUN/Creatinine Ratio 11.0 (10-20) Calcium Level 7.6 mg/dl (8.5-10.1) Magnesium Level 1.9 mg/dl (1.8-2.4) Total Bilirubin 1.9 mg/dl (0.2-1) Direct Bilirubin 1.2 mg/dl (0-0.2) Aspartate Amino Transf (AST/SGOT) 48 U/L (15-37) Alanine Aminotransferase (ALT/SGPT) 22 U/L (12-78) Alkaline Phosphatase 211 U/L (45-117) Total Creatine Kinase 90 U/L (26-192) Pro-B-Type Natriuretic Peptide 1793 pg/ml (0-900) Total Protein 6.9 gm/dl (6.4-8.2) Albumin 2.8 gm/dl (3.4-5.0) Lipase 322 U/L (73-393) Laboratory results as reviewed by me. Medications Administered Medications (Trade) Dose Ordered Sig/Darrick Route Start Time Stop Time Status Last Admin Dose Admin Fentanyl Citrate (Fentanyl Inj) 75 mcg NOW STAT IV 09/28/17 23:35 09/28/17 23:37 DC 09/29/17 00:10 75 MCG Hydromorphone HCl (Dilaudid Inj) 1 mg NOW STAT IV 09/29/17 00:49 09/29/17 00:51 DC 09/29/17 00:55 1 MG Furosemide (Lasix Inj) 40 mg NOW STAT IV 09/29/17 00:49 09/29/17 00:51 DC 09/29/17 00:55 40 MG Albumin Human (Albumin 25%) 12.5 gm NOW STAT IV 09/29/17 03:07 8/11/18 03:09 DC 09/29/17 03:23 12.5 GM Hydromorphone HCl (Dilaudid Inj) 0.5 mg STK-MED ONCE .ROUTE 09/29/17 05:16 09/29/17 05:17 DC 09/29/17 05:20 0.5 MG ED Course 2324: The patient was evaluated in room A9B. A complete history and physical exam was performed. 0023: I reevaluated the patient. She states she feels better after receiving her pain medication. Patient adds she was on a water pill while she was in the hospital. She admits that they were concerned that she may lose her kidney but does not know what that means. 0047: I reassessed the patient. She states her pain in her abdomen and lower back won't go away. She is requesting more pain medications. Patient is agreeable to CT scan. 0145: Patient states she is feeling much improved. 0255: I reevaluated the patient who is stable and resting comfortably. 0302: Upon reevaluation, the patient will be further evaluated. Discussed results and treatment plan with the patient. She verbalized understanding and agreement with the treatment plan. The patient will be evaluated for further management. Medical Decision Differential: DVT, CHF, Arterial Occlusion, Infectious, Joint Effusion, Trauma, Lymphedema, Idiopathic, Trauma, amongst other pathologies entertained. Pleasant 72 yr old female arrives with complaint of fluid overload and abdominal pain radiating to back. Pain is consistent and steady since recent dissection though did seem a bit worsened by trying to do house chores all day. Fluid is of legs, abdomen, back and is leaking out of the wounds on her bilateral groins. She is severely fluid overloaded and has gained about 12 lbs in last few days. CXR consistent with developing fluid overload as well. CT abdo/pelv done given recent AAA repairs and is not consistent with emergent surgical issue and fluids does not appear to be blood. There is no overt infection noted. She has no fever, no wbc elevation and exam is not consistent with infection at this time. She will need extensive diuresis and given low albumen likely will need further IV albumin. I did given 12.5g IV albumin to help with Lasix initially. Kidney function looking good. She was made comfortable with IV dilaudid/fentanyl. She is able to ambulate thus will hold on garcia. She initially was HTN but with pain meds this was improving and she felt better. Reviewed with Vasc Surg at [facility] who agree with her being managed here and Hospitalist here placed admission orders. Medication Reconcilliation Current Medication List: was personally reviewed by me Blood Pressure Screening Patient's blood pressure: Elevated blood pressure Referred by hospitalist. Consults Time Called: 023 Consulting Physician: Dr. Chen PEREZ Returned Call: 0235 I had a prolonged discussion with Dr. Siddiqui about the patient. He recommends discussing the patient with [facility] prior to getting him involved in the patient's care. Additional Consults: Time Called: 025 Consulted Physician: Dr. Taty Lackey Vascular Surgeon Returned Call: 025 Additional Comments: Discussed the patient's case. I reviewed the patient's labs and CT imaging with Dr. Posey. He is comfortable with the patient being monitored here. Time Called: 025 Consulted Physician: Dr. Chen PEREZ Returned Call: 0300 Additional Comments: Discussed the patient's case. The patient will be evaluated for further treatment and disposition. Impression Primary Impression: Anasarca Additional Impressions: Fluid overload Intractable pain Scribe Attestation The scribe's documentation has been prepared under my direction and personally reviewed by me in its entirety. I confirm that the note above accurately reflects all work, treatment, procedures, and medical decision making performed by me. Departure Information Dispostion Being Evaluated By Hospitalist Referrals Beatris Noriega PA-C (PCP) Forms HOME CARE DOCUMENTATION FORM, IMPORTANT VISIT INFORMATION, WORK / SCHOOL INSTRUCTIONS Patient Instructions My [facility] Health Problem Qualifiers
[2017-09-29] VITALS (18 sets, daily range): BP systolic 122–178; BP diastolic 60–106; PULSE 70–89; TEMP 36.2–38.9; O2SAT 90–100; Ht 143.5 cm; Wt 71.7 kg
[2017-09-29 00:14] LABS: BASO % 0.7 %; BASO ABS # 0.06 K/uL (0-0.2); EOS ABS # 0.26 K/uL (0-0.5); HEMATOCRIT 30.3 % (37-47); HEMOGLOBIN 9.7 g/dL (12.0-16.0); IG# 0.03 K/uL (0.00-0.02); LYMPH % 24.9 %; LYMPH ABS # 2.17 K/uL (1.2-3.4); MEAN CELL VOLUME 86.1 fL (80-100); MEAN CORPUSCULAR HEMOGLOBIN 27.6 pg (25-34); MEAN PLATELET VOLUME 9.9 fL (7.4-10.4); MONO % 13.9 %; MONO ABS # 1.21 K/uL (0.11-0.59); NEUT % 57.2 %; PLATELET COUNT 187 K/uL (130-400); RED CELL DISTRIBUTION WIDTH CV 21.7 % (11.5-14.5); RED CELL DISTRIBUTION WIDTH SD 68.3 fL (36.4-46.3); WHITE BLOOD COUNT 8.73 K/uL (4.8-10.8)
[2017-09-29 00:39] LABS: ALBUMIN 2.8 gm/dl (3.4-5.0); ALKALINE PHOSPHATASE 211 U/L (45-117); ALT/SGPT 22 U/L (12-78); AST/SGOT 48 U/L (15-37); BLOOD UREA NITROGEN 11 mg/dl (7-18); CALCIUM 7.6 mg/dl (8.5-10.1); CARBON DIOXIDE 25 mmol/L (21-32); CREATININE 0.97 mg/dl (0.60-1.20); GLUCOSE 85 mg/dl (70-99); LIPASE 322 U/L (73-393); POTASSIUM 4.1 mmol/L (3.5-5.1); SODIUM 134 mmol/L (136-145); TOTAL PROTEIN 6.9 gm/dl (6.4-8.2)
[2017-09-29] MEDS ORDERED: HYDROmorphone INJ 1 MG/ML SYR IV STA (00:49)
[2017-09-29] MEDS ORDERED: FUROSEMIDE 40 MG/4 ML VIAL IV STA (00:49)
[2017-09-29] MEDS ORDERED: OPTIRAY 320 IV PRN (01:00)
[2017-09-29] MEDS ORDERED: CLOP1TAB15 PO (01:05)
[2017-09-29] MEDS ORDERED: CARV3.122 PO (01:05)
[2017-09-29] MEDS ORDERED: DOCU-94 PO (01:07)
[2017-09-29] MEDS ORDERED: OXYC1CAP5 PO (01:07)
[2017-09-29] MEDS ORDERED: ALBUMIN HUMAN 25% 12.5 GM/50 ML VIAL IV STA (03:07)
[2017-09-29] MEDS ORDERED: ONDANSETRON INJ 2 MG/ML 2 ML VIAL IV PRN (03:45)
[2017-09-29] MEDS ORDERED: ALUMINUM/MAGNESIUM/SIMETH (MAALOX MAX) 30 ML UDC PO PRN (03:45)
[2017-09-29] MEDS ORDERED: ZOLPIDEM TARTRATE 5 MG TAB PO PRN (03:45)
[2017-09-29] MEDS ORDERED: MAGNESIUM HYDROXIDE SUSP 30 ML UDC PO PRN (03:45)
[2017-09-29] MEDS ORDERED: ACETAMINOPHEN 325 MG TAB PO PRN ×2 (03:45→04:45)
[2017-09-29] MEDS ORDERED: POLYETHYLENE (MIRALAX) 17 GM PACK PO PRN (03:45)
[2017-09-29] MEDS ORDERED: OXYCODONE HCL IR 5 MG TAB (IMMEDIATE RELEASE) PO PRN (03:45)
--- NOTE | 2017-09-29 04:02 | History and Physical ---
History & Physical Date & Time of Service: Sep 29, 2017 at 03:45 Chief Complaint: Swelling In Legs And Feet Primary Care Physician: Beatris Noriega PA-C History of Present Illness Source: patient, family, hospital records 72F with a PMHx of recent Aortic Dissection (sc'ed from [place] 09/28/17), hemochromatosis & cirrhosis (per chart review) presents with abdominal and bilateral leg edema w pain. Patient states that in [place] she was getting Lasix but hasn't gotten any Lasix on discharge. She states that over the past 24 hours she has had an incredible amount of fluid build up in her legs , abdomen and it's starting to weep from her incision sites. Per [facility] pt's weight in [place] was 71.1kg. Today she is 74.4kg. Pt does not own a scale at home. She also reports back pain ever since her dissection repair. Dr. Dhillon spoke with the vascular surgeon studio operations engineer in charge in [place] and stated that the patient is safe to be treated in [facility]. Past Medical/Surgical History Medical Problems: (1) Aortic dissection (2) Cirrhosis of liver (3) Diarrhea (4) Hemochromatosis Family History No pertinent family history Social History Smoking Status: Never Smoker Smokeless Tobacco Use: No Alcohol Use: none Drug Use: none Marital Status: Housing status: lives with family Occupational Status: retired Immunizations History of Influenza Vaccine: No History of Tetanus Vaccine?: No History of Pneumococcal: No History of Hepatitis B Vaccine: No Allergies Coded Allergies: Codeine (Verified Allergy, Intermediate, vomiting, 09/29/17) Home Medications Scheduled Ascorbic Acid (Ascorbic Acid), 1 TAB PO QAM Aspirin (Aspirin Ec), 81 MG PO DAILY Carvedilol (Coreg), 3.125 MG PO BID Clopidogrel (Plavix), 75 MG PO DAILY Docusate Sodium (Colace), 1 CAP PO BID Magnesium Oxide (Mag-Ox), 400 MG PO QAM Omeprazole (Prilosec), 20 MG PO QAM Scheduled PRN Oxycodone Hcl (Oxycodone Hcl), 2.5 MG PO Q4 PRN for Moderate Pain Review of Systems Constitutional: No fever, No chills Eyes: No worsening of vision ENT: No hearing loss Respiratory: + shortness of breath, + dyspnea on exertion, No cough, No sputum , No wheezing, No dyspnea at rest Cardiovascular: No chest pain Abdomen: + pain, No nausea, No vomiting, No diarrhea, No constipation Musculoskeletal: No joint pain Genitourinary - Female: No dysuria Physical Exam Vital Signs Date Time Temp Pulse Resp B/P (MAP) Pulse Ox O2 Delivery O2 Flow Rate FiO2 09/29/17 03:18 66 09/29/17 01:42 73 18 143/74 98 Room Air 09/29/17 00:58 65 18 173/98 100 Room Air 09/28/17 23:22 69 09/28/17 23:11 36.5 65 18 119/60 98 Room Air General Appearance: WD/WN, + obese Head: normocephalic, atraumatic Eyes: normal inspection, PERRL, EOMI ENT: normal ENT inspection Neck: supple Respiratory/Chest: chest non-tender, lungs clear, normal breath sounds, no respiratory distress, no accessory muscle use Cardiovascular: regular rate, rhythm, no gallop, no JVD, no murmur, normal peripheral pulses Abdomen/GI: normal bowel sounds, non tender, soft, + pertinent finding (pt has visible weeping from incision sites. ) Back: normal inspection, no CVA tenderness Extremities/Musculoskelatal: normal capillary refill, normal range of motion, non-tender, + swelling (3+ pitting edema in the LE) Neurologic/Psych: development lead II-XII nml as tested, alert, normal mood/affect, normal reflexes, oriented x 3 Skin: normal color Diagnostics Laboratory Results Results Past 24 Hours Test 09/29/17 00:05 Range/Units White Blood Count 8.73 4.8-10.8 K/uL Red Blood Count 3.52 4.2-5.4 M/uL Hemoglobin 9.7 12.0-16.0 g/dL Hematocrit 30.3 37-47 % Mean Corpuscular Volume 86.1 80-100 fL Mean Corpuscular Hemoglobin 27.6 25-34 pg Mean Corpuscular Hemoglobin Concent 32.0 32-36 g/dl Platelet Count 187 130-400 K/uL Mean Platelet Volume 9.9 7.4-10.4 fL Neutrophils (%) (Auto) 57.2 % Lymphocytes (%) (Auto) 24.9 % Monocytes (%) (Auto) 13.9 % Eosinophils (%) (Auto) 3.0 % Basophils (%) (Auto) 0.7 % Neutrophils # (Auto) 5.00 1.4-6.5 K/uL Lymphocytes # (Auto) 2.17 1.2-3.4 K/uL Monocytes # (Auto) 1.21 0.11-0.59 K/uL Eosinophils # (Auto) 0.26 0-0.5 K/uL Basophils # (Auto) 0.06 0-0.2 K/uL RDW Standard Deviation 68.3 36.4-46.3 fL RDW Coefficient of Variation 21.7 11.5-14.5 % Immature Granulocyte % (Auto) 0.3 % Immature Granulocyte # (Auto) 0.03 0.00-0.02 K/uL Polychromasia 1+ Anisocytosis PRESENT Sodium Level 134 136-145 mmol/L Potassium Level 4.1 3.5-5.1 mmol/L Chloride Level 103 98-107 mmol/L Carbon Dioxide Level 25 21-32 mmol/L Anion Gap 6.0 3-11 mmol/L Blood Urea Nitrogen 11 7-18 mg/dl Creatinine 0.97 0.60-1.20 mg/dl Estimated GFR () 67.2 Estimated GFR (Non- 57.9 BUN/Creatinine Ratio 11.0 10-20 Random Glucose 85 70-99 mg/dl Calcium Level 7.6 8.5-10.1 mg/dl Magnesium Level 1.9 1.8-2.4 mg/dl Total Bilirubin 1.9 0.2-1 mg/dl Direct Bilirubin 1.2 0-0.2 mg/dl Aspartate Amino Transf (AST/SGOT) 48 15-37 U/L Alanine Aminotransferase (ALT/SGPT) 22 12-78 U/L Alkaline Phosphatase 211 45-117 U/L Total Creatine Kinase 90 26-192 U/L Pro-B-Type Natriuretic Peptide 1793 0-900 pg/ml Total Protein 6.9 6.4-8.2 gm/dl Albumin 2.8 3.4-5.0 gm/dl Lipase 322 73-393 U/L Impression Assessment and Plan 72F with a PMHx of recent Aortic Dissection (dc'ed from [place] 09/28/17), hemochromatosis & cirrhosis (per chart review) presents with abdominal and bilateral leg edema w pain. Ascites (abdomen and LE) 2/2 Cirrhosis vs Fluid overload from Recent stay in [place] Target weight of 71.1kg (74.4 on admit here) Pt given 40mg IV Lasix and Albumin in the ER. will give 20mg IV lasix in the AM and again in the evening. Then 40mg IV QAm - adjust as needed. No echocardiogram in chart, will get echocardiogram. Also because of previous documented cirrhosis (2/2 ?hemochromatosis) will get duplex of the portal veins. Because swelling is in abdomen and both legs - unlikely a DVT in the leg, will hold off on duplex US of the LE. Aortic Dissection s/p repair c/w home meds ASA and Plavix daily and carvedilol for BP control. Home Oxycodone for pain control + Dilaudid 0.5mg Q4H PRN Severe pain (back pain from surgery) Anemia (chronic) HgB 10.3, MCV WNL. Per chart review h/o both microcytic and megaloblastic anemia (MCV sizes). 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 Therefore, this result is consistent with a diagnosis of HH in an individual with clinical evidence of HH. LFTs are lower than in previous years. Hep A and Hep B negative (2016) Consider Hep C Screen if not done already at [place] or as outpatient. DVT Proph: SCDs Dispo: Admit med surg Diet: Heart Healthy FULL CODE Attending addendum: I have physically seen this patient, have supervised the medical residents activities, and agree with the H&P unless as otherwise noted. Assessment and Plan: Anasarca/ascites/cirrhosis/fluid overload-- Directed administration of albumin 25 g IV with Lasix 40 mg IV in the ED. Continue albumin 25 g IV with Lasix 40 mg IV every 8 hours for 3 additional doses. Follow serial CBC with differential, chemistry profile and magnesium levels. Order 2D echocardiogram with Dopplers. Aortic dissection status post repair in [facility]-- Continue with aspirin, Plavix and carvedilol. Remainder of orders and notations as above. Advanced Directives Existing Advance Directive: No Existing Living Will: No Existing Power of Cdl Company Driver: No Resuscitation Status VTE Prophylaxis Will order VTE Prophylaxis: Yes Social Service Consult None Apply Resident Involvement: Resident Care Provided Care Provided: Adult Hospital Medicine
[2017-09-29] MEDS ORDERED: NITROGLYCERIN 0.4 MG SL PER TAB CHARGE SL PRN (04:45)
[2017-09-29] MEDS ORDERED: HYDROmorphone INJ 0.5 MG/0.5 ML SYR ONE (05:16)
--- NOTE | 2017-09-29 06:44 | DIAGNOSTIC IMAGING REPORT ---
DOPPLER ULTRASOUND OF THE HEPATIC AND PORTAL VASCULATURE CLINICAL HISTORY: Cirrhosis and ascites. COMPARISON STUDY: Abdominal CT dated 09/29/2017. TECHNIQUE: Real-time, grayscale, and color Doppler sonography of the hepatic and portal vasculature is performed. FINDINGS: The main portal vein is patent with velocities measuring up to 17 cm/s. Flow within the main portal vein is hepatopetal. The left portal vein is patent with normal direction of flow. The right portal vein was not well visualized. The hepatic veins are patent with loss of the normal hepatic venous waveform. Cirrhotic liver morphology is noted. IMPRESSION: 1. The main portal vein is patent with hepatopetal flow. 2. The left portal vein and the hepatic veins are patent. 3. The right portal vein was not well visualized. This was shown to be widely patent on today's abdominal CT scan. 4. There is loss of the normal hepatic venous waveforms suggesting portal hypertension. Dictated: 09/29/2017 6:32 AM Transcribed: 09/29/2017 6:41 AM [email or web address] Electronically signed by: Barron Wheat M.D. 09/29/2017 6:42 AM Dictated Date/Time: 09/29/2017 6:32 AM
--- NOTE | 2017-09-29 06:59 | DIAGNOSTIC IMAGING REPORT ---
CT SCAN OF THE ABDOMEN AND PELVIS WITH IV CONTRAST CLINICAL HISTORY: Right-sided abdominal pain. COMPARISON STUDY: Abdominal CT dated 09/19/2017. TECHNIQUE: Following the IV administration of 91 cc of Optiray 320, CT scan of the abdomen and pelvis is performed from the lung bases to the proximal femora. Images are reviewed in the axial, sagittal, and coronal planes. IV contrast was administered without complication. A dose lowering technique was utilized adhering to the principles of ALARA. CT DOSE: 794.74 mGy.cm FINDINGS: Lung bases: The heart is normal in size and without pericardial effusion. There is a trace left pleural effusion. Linear atelectasis/scarring is present at both lung bases. No airspace consolidation is seen typical for pneumonia. There is a tiny hiatal hernia. Esophageal varices are noted. Liver: The contrast-enhanced liver is cirrhotic in morphology and heterogeneous in attenuation. There is nodularity of the hepatic surface contour. There is no intrahepatic biliary ductal dilatation. The hepatic veins and portal veins are patent. There is recanalization of the periumbilical vein. A 9 mm cyst is noted in the caudate lobe. Gallbladder: Unremarkable. Spleen: Normal in size and attenuation, measuring 11.3 cm in length. Pancreas: Atrophic. Adrenal glands: Unremarkable. Kidneys: The contrast enhanced kidneys symmetric cortical atrophy and are without hydronephrosis. There is a perfusion defect in the left lower pole consistent with an evolving infarct. The kidneys enhance symmetrically. Abdominal vasculature: There is advanced atherosclerotic calcification of the abdominal aorta. A stent is partially visualized in the descending thoracic aorta, new from 09/19/2017. A dissection is again seen below the stent and extends to the aortic bifurcation, and also likely involves the left common iliac artery. A left renal artery stent is also new from previous. 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 Bowel: Mild colonic fecal retention is observed. No bowel obstruction is seen. The appendix is not visualized. Peritoneum: There is no intraperitoneal free air identified. There is a small volume of abdominal ascites. No hyperdense fluid is identified to suggest hemoperitoneum. Lymphadenopathy: None. Pelvic viscera: The bladder is normal as visualized. The endometrium appears thickened measuring up to 9 mm. No adnexal lesion is seen. Surgical clips are noted in the groin bilaterally. There are small pockets of simple appearing fluid in the groin bilaterally, measuring 4.5 x 2.5 cm on the left (axial image #360), and measuring 3.4 x 2.1 cm on the right (axial image #430). These measure water density and likely represent seromas. No hematoma is seen. Skeletal structures: The skeletal structures are osteopenic. Mild to moderate lumbosacral spondylosis is observed. No lytic or blastic lesions are seen. Soft tissues: There is mild body wall edema, with subcutaneous fluid seen in the flanks bilaterally. No organized fluid collection is seen to suggest abscess. IMPRESSION: 1. A stent is partially visualized in the descending thoracic aorta, new from 09/19/2017. 2. There is dissection is again seen extending from the inferior aspect of the stent to the aortic bifurcation, and likely extending into the left common iliac artery. 3. A left renal artery stent is new from 09/19/2017. A perfusion defect involving the lower pole of left kidney is consistent with an evolving renal infarct. 4. Cirrhotic liver morphology with evidence of portal hypertension including a small volume of abdominal ascites, esophageal varices, and recanalization of the periumbilical vein. The volume of ascites has increased from 09/19/2017. 5. Surgical clips are present in the groin bilaterally. There are small pockets of water attenuation fluid identified in the groin bilaterally, likely representing postoperative seromas. 6. The endometrium appears thickened for age measuring up to 9 mm. Follow-up with a nonemergent pelvic ultrasound is recommended for further assessment. 7. Trace left pleural effusion. 8. Additional findings as above. Electronically signed by: Barron Wheat M.D. 09/29/2017 6:57 AM Dictated Date/Time: 09/29/2017 6:43 AM
[2017-09-29] MEDS ORDERED: ALBUMIN 25% 50 ML with FUROSEMIDE INJ 40 MG IV SCH ×2 (08:00)
[2017-09-29] MEDS ORDERED: HydrALAZINE HCL 20 MG/ML VIAL IV. PRN (08:45)
[2017-09-29] MEDS ORDERED: CARVEDILOL 3.125 MG TAB PO SCH (09:00)
[2017-09-29] MEDS ORDERED: FUROSEMIDE INJ 20 MG in SYRINGE 0 ML IV ONE (09:00)
[2017-09-29] MEDS ORDERED: CLOPIDOGREL BISULFATE 75 MG TAB PO SCH (09:00)
[2017-09-29] MEDS ORDERED: ASPIRIN 81 MG ECTAB PO SCH (09:00)
[2017-09-29] MEDS ORDERED: MAGNESIUM OXIDE 400 MG TAB PO SCH (09:00)
[2017-09-29] MEDS ORDERED: PANTOprazole SOD 40 MG TAB PO SCH (09:00)
[2017-09-29] MEDS ORDERED: DOCUSATE SODIUM 100 MG CAP PO SCH (09:00)
--- NOTE | 2017-09-29 09:02 | DIAGNOSTIC IMAGING REPORT ---
SINGLE VIEW CHEST CLINICAL HISTORY: Atypical chest pain. FINDINGS: An AP, portable, upright chest radiograph is compared to study dated 09/19/2017. The examination is degraded by portable technique and patient rotation. The heart is top normal in size and there is atherosclerotic calcification of the thoracic aorta. A descending thoracic aortic stent graft is new from previous. The pulmonary vasculature is noncongested. Bibasilar atelectasis is observed. No large pleural effusion or pneumothorax is seen. The skeletal structures are osteopenic. The bony thorax is grossly intact. IMPRESSION: 1. There is no acute cardiopulmonary abnormality. 2. A descending thoracic aortic stent graft is new from previous. Electronically signed by: Barron Wheat M.D. 09/29/2017 9:00 AM Dictated Date/Time: 09/29/2017 8:59 AM
--- NOTE | 2017-09-29 09:04 | DIAGNOSTIC IMAGING REPORT ---
KUB CLINICAL HISTORY: Constipation. Generalized abdominal pain. FINDINGS: 2 AP supine abdominal radiographs are correlated with abdominal CT dated 09/19/2017. There is a nonobstructed abdominal bowel gas pattern noting mild colonic fecal retention. No evidence of intraperitoneal free air is seen on these supine images. A stent graft is visualized in the descending thoracic aorta. An iliac stent is also identified. There are no abnormal abdominal calcifications. Surgical clips project over the groin bilaterally. The skeletal structures are osteopenic. The bony structures are grossly intact. IMPRESSION: Nonobstructed abdominal bowel gas pattern. Electronically signed by: Barron Wheat M.D. 09/29/2017 9:03 AM Dictated Date/Time: 09/29/2017 9:01 AM
[2017-09-29] MEDS: HYDROmorphone INJ 0.5 MG/0.5 ML SYR IV PRN ×3 (10:19→17:50)
--- NOTE | 2017-09-29 12:23 | ECHOCARDIOGRAM REPORT ---
*NOTICE TO RECEIVING LIBERTARIAN AGENCY This information is strictly Confidential and protected under [place] law. [place] law prohibits you from making any further disclosure of this information unless further disclosure is expressly permitted by the written consent of the person to whom it pertains or is authorized by law. A general authorization for the release of medical or other information is not sufficient for this purpose. Hospital accepts no responsibility if the information is made available to any other person, INCLUDING THE PATIENT. Interpretation Summary * Name: YOSI ELMORE Study Date: 09/29/2017 09:53 AM BP: 129/96 mmHg * Patient Location: C.2T\S\S230\S\1 HR: 72 * : 1945 (M/d/yyy) Gender: Female Height: 58 in * Age: 72 yrs Ethnicity: [place] Weight: 164 lb * Ordering Physician: Christiano Fabian * Performed By: Daylin Camarillo RDCS * * Reason For Study: CHF * BSA: 1.7 m2 * -- Conclusions -- * Left ventricular systolic function is normal. * Grade I diastolic dysfunction, (abnormal relaxation pattern). * The left atrium is mildly dilated. Procedure Details * A complete two-dimensional transthoracic echocardiogram was performed (2D, M-mode, Doppler and color flow Doppler). * There were technical limitations due to patient'sinability to cooperate Left Ventricle * The left ventricle is normal in size. * There is normal left ventricular wall thickness. * Ejection Fraction = 65-70%. * Left ventricular systolic function is normal. * Grade I diastolic dysfunction, (abnormal relaxation pattern). * The left ventricular wall motion is normal. Right Ventricle * The right ventricle is normal in size and function. * The right ventricular systolic function is normal as assessed by tricuspid annular plane systolic excursion (TAPSE) (normal >1.5 cm). Atria * The left atrium is mildly dilated. * Right atrial size is normal. Mitral Valve * The mitral valve is grossly normal. * Significant mitral regurgitation is absent. Tricuspid Valve * The tricuspid valve is not well visualized, but is grossly normal. * Significant tricuspid regurgitation is absent. Aortic Valve * The aortic valve is not well visualized. * No hemodynamically significant valvular aortic stenosis. * There is no significant aortic regurgitation. Pulmonic Valve * The pulmonic valve is not well visualized. Pericardium/Pleural * There is no pericardial effusion. MMode 2D Measurements and Calculations IVSd 0.97 cm IVSs 1.7 cm LVIDd 5.3 cm LVIDs 3.3 cm LVPWd 0.77 cm LVPWs 1.6 cm IVS/LVPW 1.3 FS 38.3 % EDV(Teich) 136.2 ml ESV(Teich) 43.5 ml EF(Teich) 68.1 % EDV(cubed) 150.1 ml ESV(cubed) 35.3 ml EF(cubed) 76.5 % % IVS thick 72.7 % % LVPW thick 110.3 % LV mass(C)d 167.7 grams LV mass(C)dI 100.2 grams/m\S\2 LV mass(C)s 207.4 grams LV mass(C)sI 123.9 grams/m\S\2 SV(Teich) 92.8 ml SI(Teich) 55.4 ml/m\S\2 SV(cubed) 114.9 ml SI(cubed) 68.6 ml/m\S\2 ACS 0.94 cm LA dimension 4.1 cm asc Aorta Diam 3.1 cm LVOT diam 1.7 cm LVOT area 2.2 cm\S\2 LVAd ap4 29.6 cm\S\2 LVLd ap4 8.2 cm EDV(MOD-sp4) 87.4 ml EDV(sp4-el) 90.5 ml LVAs ap4 13.5 cm\S\2 LVLs ap4 6.1 cm ESV(MOD-sp4) 24.7 ml ESV(sp4-el) 25.2 ml EF(MOD-sp4) 71.8 % EF(sp4-el) 72.2 % LVAd ap2 28.6 cm\S\2 LVLd ap2 8.6 cm EDV(MOD-sp2) 77.3 ml EDV(sp2-el) 81.0 ml LVAs ap2 13.8 cm\S\2 LVLs ap2 6.8 cm ESV(MOD-sp2) 23.1 ml ESV(sp2-el) 23.9 ml EF(MOD-sp2) 70.1 % EF(sp2-el) 70.5 % LVLd %diff 4.3 % EDV(MOD-bp) 84.8 ml LVLs %diff 10.1 % ESV(MOD-bp) 25.2 ml EF(MOD-bp) 70.3 % SV(MOD-sp4) 62.7 ml SI(MOD-sp4) 37.4 ml/m\S\2 SV(MOD-sp2) 54.2 ml SI(MOD-sp2) 32.4 ml/m\S\2 SV(MOD-bp) 59.6 ml SI(MOD-bp) 35.6 ml/m\S\2 SV(sp4-el) 65.3 ml SI(sp4-el) 39.0 ml/m\S\2 SV(sp2-el) 57.1 ml SI(sp2-el) 34.1 ml/m\S\2 Doppler Measurements and Calculations MV E max robert 100.3 cm/sec MV A max robert 99.8 cm/sec MV E/A 1.0 MV dec time 0.15 sec Ao V2 max 175.1 cm/sec Ao max PG 12.3 mmHg Ao max PG (full) 8.0 mmHg GOLDEN(V,A) 1.3 cm\S\2 GOLDEN(V,D) 1.3 cm\S\2 AI max robert 289.1 cm/sec AI max PG 33.4 mmHg AI dec slope 156.8 cm/sec\S\2 AI P1/2t 540.1 msec LV V1 max PG 4.2 mmHg LV V1 max 103.0 cm/sec MR max robert 486.6 cm/sec MR max PG 94.7 mmHg PA V2 max 137.0 cm/sec PA max PG 7.5 mmHg
[2017-09-29] MEDS ORDERED: SODIUM CHLORIDE 0.9% 1000ML 1,000 ML IV SCH (16:00)
[2017-09-29] MEDS ORDERED: ICU PROTOCOL FOR HYPERGLYCEMIA PRN (16:30)
--- NOTE | 2017-09-29 16:47 | DIAGNOSTIC IMAGING REPORT ---
CT ANGIOGRAM OF THE ABDOMEN AND PELVIS CLINICAL HISTORY: Intractable abdominal pain. COMPARISON STUDY: Abdominal CT scans dated 09/29/2017 and 09/19/2017. TECHNIQUE: Following the IV administration of 115 cc of Optiray 320, CT angiogram of the abdomen and pelvis was performed from the lung bases the proximal femora. Images are reviewed in the axial, sagittal, and coronal planes. 3-D MIPS images are created and assessed. IV contrast was administered without complication. A dose lowering technique was utilized adhering to the principles of ALARA. CT DOSE: 1205.15 mGy.cm FINDINGS: Lung bases: The heart is normal in size and without pericardial effusion. There are trace pleural effusions. Linear atelectasis/scarring is present at both lung bases. No airspace consolidation is seen typical for pneumonia. There is a tiny hiatal hernia. Esophageal varices are noted. Liver: The contrast-enhanced liver is cirrhotic in morphology and heterogeneous in attenuation. There is nodularity of the hepatic surface contour. There is no intrahepatic biliary ductal dilatation. The hepatic veins and portal veins are patent. There is recanalization of the periumbilical vein. A 9 mm cyst is noted in the caudate lobe. Gallbladder: Unremarkable. Spleen: Normal in size and attenuation, measuring 11.3 cm in length. Pancreas: Atrophic. Adrenal glands: Unremarkable. Kidneys: The contrast enhanced kidneys symmetric cortical atrophy and are without hydronephrosis. There is a perfusion defect in the left lower pole consistent with an evolving infarct. The kidneys enhance symmetrically. Abdominal aorta and iliac arteries: There is advanced atherosclerotic calcification of the abdominal aorta. A stent is again partially visualized in the descending thoracic aorta. A dissection is again seen below the stent and extends to the aortic bifurcation. The true and false lumen are widely patent. A stent is noted in the left iliac artery and appears patent. The iliac vessels are patent bilaterally comment are clear to the visualized proximal superficial femoral artery. Major branches of the abdominal aorta: There is high-grade stenosis at the origin of the superior mesenteric artery. The remainder of the superior mesenteric arteries patent. The celiac trunk and inferior mesenteric arteries are widely patent. Hepatic arterial anatomy is conventional. The splenic artery is patent. The right main renal artery is patent. A small accessory right renal artery as seen on image #143. A stent is seen at the origin of the left renal artery. The stent appears patent. Diminished flow suggested just distal to the stent, and may be related to streak artifact from the stent. Bowel: Mild colonic fecal retention is observed. No bowel obstruction is seen. The appendix is not visualized. Peritoneum: There is no intraperitoneal free air identified. There is a small volume of abdominal ascites. No hyperdense fluid is identified to suggest hemoperitoneum. Lymphadenopathy: None. Pelvic viscera: The bladder is normal as visualized, and filled with excreted IV contrast. The endometrium appears thickened measuring up to 9 mm. No adnexal lesion is seen. Surgical clips are noted in the groin bilaterally. Small pockets of simple appearing fluid are again seen in the groin bilaterally. These measure water density and likely represent seromas. No hematoma is seen. Skeletal structures: The skeletal structures are osteopenic. Mild to moderate lumbosacral spondylosis is observed. No lytic or blastic lesions are seen. Soft tissues: There is mild body wall edema, with subcutaneous fluid seen in the flanks bilaterally. No organized fluid collection is seen to suggest abscess. IMPRESSION: 1. A stent is again seen in the descending thoracic aorta. The stent is patent, as is a stent in the left common iliac artery. 2. There is unchanged appearance of a dissection which extends from the inferior aspect of the thoracic aortic stent to the aortic bifurcation. 3. A left renal artery stent appears patent. There is diminished flow suggested just distal to the renal artery stent, which may be related to streak artifact. 4. A perfusion defect involving the lower pole of left kidney is unchanged and consistent with an evolving renal infarct. 5. 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 The remainder of the superior mesenteric artery is patent. 6. No abnormal bowel loops are identified. 7. Cirrhotic liver morphology with evidence of portal hypertension including a small volume of abdominal ascites, esophageal varices, and recanalization of the periumbilical vein. 8. Surgical clips are present in the groin bilaterally. There are small pockets of water attenuation fluid identified in the groin bilaterally, likely representing postoperative seromas. 9. The endometrium appears thickened for age measuring up to 9 mm. Follow-up with a nonemergent pelvic ultrasound is recommended for further assessment. 10. Trace pleural effusions. 11. Additional findings as above. Electronically signed by: Barron Wheat M.D. 09/29/2017 4:46 PM Dictated Date/Time: 09/29/2017 4:24 PM
--- NOTE | 2017-09-29 16:55 | Discharge Instructions ---
Discharge Instructions Date of Service Sep 29, 2017. Admission Reason for Admission: Anasarca, Intractable Pain Discharge Discharge Diagnosis / Problem: Intractable abdominal pain,possible progressing aortic dissection Discharge Goals Goal(s): Improve disease control, Diagnostic testing, Therapeutic intervention Activity Recommendations Activity Limitations: as noted below Exercise/Sports Limitations: rest today . Instructions / Follow-Up Instructions / Follow-Up Transferred to [facility] [place] Current Hospital Diet Patient's current hospital diet: AHA Diet (Heart Healthy) Discharge Diet Recommended Diet: N/A (NPO) Pending Studies Studies pending at discharge: no Medical Emergencies . Who to Call and When: Medical Emergencies: If at any time you feel your situation is an emergency, please call 911 immediately. . Non-Emergent Contact Non-Emergency issues call your: Primary Care Provider . . "Provider Documentation" section prepared by Jacki Morgan. .
[2017-09-29 16:56] LABS: BASO % 0.6 %; BASO ABS # 0.06 K/uL (0-0.2); EOS % 1.9 %; EOS ABS # 0.18 K/uL (0-0.5); HEMATOCRIT 29.3 % (37-47); HEMOGLOBIN 9.4 g/dL (12.0-16.0); IG# 0.04 K/uL (0.00-0.02); LYMPH % 10.6 %; LYMPH ABS # 0.98 K/uL (1.2-3.4); MEAN CELL VOLUME 85.9 fL (80-100); MEAN CORPUSCULAR HEMOGLOBIN 27.6 pg (25-34); MEAN PLATELET VOLUME 9.7 fL (7.4-10.4); MONO % 11.5 %; MONO ABS # 1.06 K/uL (0.11-0.59); NEUT ABS # 6.92 K/uL (1.4-6.5); PLATELET COUNT 213 K/uL (130-400); RED CELL DISTRIBUTION WIDTH CV 21.9 % (11.5-14.5); RED CELL DISTRIBUTION WIDTH SD 67.9 fL (36.4-46.3); WHITE BLOOD COUNT 9.24 K/uL (4.8-10.8)
[2017-09-29 17:06] LABS: INR 1.2 (0.9-1.1)
[2017-09-29 17:07] LABS: MEAN CORPUSCULAR HGB CONC 32.1 g/dl (32-36)
[2017-09-29 17:15] LABS: CALCIUM 7.9 mg/dl (8.5-10.1); CREATININE 0.91 mg/dl (0.60-1.20); POTASSIUM 3.9 mmol/L (3.5-5.1)
[2017-09-29] MEDS ORDERED: SODIUM NITROPRUSSIDE SOLN INJ 50 MG in DEXTROSE 5% 500ML 500 ML IV STA (17:31)
[2017-09-29] MEDS ORDERED: NiCARDipine IV 25 MG in SODIUM CHLORIDE 0.9% 250ML 240 ML IV SCH (17:40)
--- NOTE | 2017-09-29 17:52 | Critical Care Consultation ---
Critical Care Consultation Date of Consultation: Sep 29, 2017. Attending Physician: Jacki Morgan MD Reason for Consultation: Acute abdominal pain. History of Present Illness Dear Dr. Morgan: Thank you for the kind referral Mrs. Perry to critical care service. This is 72-year-old female with a history of peripheral arterial disease, AAA repair endoluminal, type II thoracic aortic aneurysm that was repaired at [facility] over 10 days ago, the patient presented to the hospital with increasing abdominal pain and was admitted initially to the regular floor. The patient was found later to be agitated, and severe pain, not controlled only with Dilaudid, due to the history of known dissection, the patient was sent to a CAT scan urgently which showed the stent in good position, the patient does have also left renal artery stenting., The patient also noted to have dissection that was extending down to the bifurcation. There is narrowing of the SMA, the bowel loops appear to be normal not thickened. Compared to the previous CAT scan, the false lumen of the distal dissection appeared increased in diameter. The patient on arrival to the ICU, was difficult to obtain any history from her, she was confused and lethargic at the same time, she was complaining mainly of abdominal pain, no nausea or vomiting was reported, she did not have any bowel movements no melena no hematemesis or hematochezia, she did not have any shortness of breath at the moment. Her O2 saturation maintained on 100% on nasal cannula. The patient did have a very poor access with 1 IV of the left requiring placement of a central line, her blood pressure was adjusted around 200 systolic and with a history of dissection, and a line was placed to control her blood pressure with IV nicardipine. The case discussed with Dr. Morgan, and Dr. Morgan discussed the case with Dr. Prieto from vascular surgery, and also with Dr. Posey from [facility]. Both agreed to transfer the patient to tertiary care center. The patient will be transferred with diagnosis of aortic dissection. And hypertensive urgency. While she is in the ICU, the patient developed fever up to 38.9. Her WBC was normal and her lactate was still pending. Past Medical/Surgical History History of liver cirrhosis, hemochromatosis, peripheral artery disease, type II thoracic aortic aneurysm with endoluminal repair over 10 days ago at [facility]. I could not get the rest of her past medical history from the patient. Family History No pertinent family history Social History Smoking Status: Former Smoker Smokeless Tobacco Use: No Alcohol Use: none Drug Use: none Marital Status: Housing Status: lives with significant other Occupation Status: retired Allergies Coded Allergies: Codeine (Verified Allergy, Intermediate, vomiting, 09/29/17) Home Medications Scheduled Ascorbic Acid (Ascorbic Acid), 1 TAB PO QAM Aspirin (Aspirin Ec), 81 MG PO DAILY Carvedilol (Coreg), 3.125 MG PO BID Clopidogrel (Plavix), 75 MG PO DAILY Docusate Sodium (Colace), 1 CAP PO BID Magnesium Oxide (Mag-Ox), 400 MG PO QAM Omeprazole (Prilosec), 20 MG PO QAM Scheduled PRN Oxycodone Hcl (Oxycodone Hcl), 2.5 MG PO Q4 PRN for Moderate Pain Current Inpatient Medications Current Inpatient Medications Medications (Trade) Dose Ordered Sig/Darrick Route Start Time Stop Time Status Last Admin Dose Admin Ioversol (Optiray 320) 100 ml UD PRN IV 09/29/17 01:00 10/03/17 00:59 Al Hydrox/Mg Hydrox/Simethicone (Maalox Max Susp) 15 ml Q4H PRN PO 09/29/17 03:45 10/29/17 03:44 Magnesium Hydroxide (Milk Of Magnesia Susp) 30 ml Q6H PRN PO 09/29/17 03:45 10/29/17 03:44 Polyethylene (Miralax Powder Packet) 17 gm DAILY PRN PO 09/29/17 03:45 10/29/17 03:44 Zolpidem Tartrate (Ambien Tab) 5 mg HSZ PRN PO 09/29/17 03:45 10/29/17 03:44 Ondansetron HCl (Zofran Inj) 4 mg Q6H PRN IV 09/29/17 03:45 10/29/17 03:44 Aspirin (Ecotrin Tab) 81 mg DAILY PO 09/29/17 09:00 10/29/17 08:59 09/29/17 07:34 81 MG Carvedilol (Coreg Tab) 3.125 mg BID PO 09/29/17 09:00 10/29/17 08:59 09/29/17 07:34 3.125 MG Clopidogrel Bisulfate (plAVix TAB) 75 mg DAILY PO 09/29/17 09:00 10/29/17 08:59 09/29/17 07:34 75 MG Docusate Sodium (coLACE CAP) 100 mg BID PO 09/29/17 09:00 10/29/17 08:59 09/29/17 07:34 100 MG Magnesium Oxide (Mag-Ox Tab) 400 mg QAM PO 09/29/17 09:00 10/29/17 08:59 09/29/17 07:34 400 MG Oxycodone HCl (Roxicodone Immediate Rel Tab) 2.5 mg Q4 PRN PO 09/29/17 03:45 10/29/17 03:44 09/29/17 14:26 2.5 MG Pantoprazole Sodium (Protonix Tab) 40 mg QAM PO 09/29/17 09:00 10/29/17 08:59 09/29/17 07:34 40 MG Hydromorphone HCl (Dilaudid Inj) 0.5 mg Q4H PRN IV 09/29/17 04:15 10/13/17 04:14 09/29/17 15:14 0.5 MG Acetaminophen (Tylenol Tab) 650 mg Q4H PRN PO 09/29/17 04:45 10/29/17 04:44 Nitroglycerin (Nitrostat Tab) 0.4 mg UD PRN SL 09/29/17 04:45 10/29/17 04:44 Hydralazine HCl (HydrALAZINE INJ) 10 mg Q8H PRN IV. 09/29/17 08:45 10/29/17 08:44 Sodium Chloride 1,000 ml @ 100 mls/hr Q10H IV 09/29/17 16:00 10/29/17 15:59 09/29/17 15:34 100 MLS/HR Miscellaneous Information (Icu Protocol For Hyperglycemia) 1 ea PRN PRN N/A 09/29/17 16:30 10/01/17 16:29 Sodium Nitroprusside 50 mg/Dextrose 502 ml @ 0 mls/hr Q0M STAT IV 09/29/17 17:31 09/29/17 17:32 UNV Nicardipine HCl 25 mg/Sodium Chloride 250 ml @ 0 mls/hr Q0M STAT IV 09/29/17 17:34 09/29/17 17:35 UNV Review of Systems Constitutional: + fever Eyes: No worsening of vision, No eye pain, No redness, No discharge, No diplopia, No problem reported ENT: No hearing loss, No unusual epistaxis, No nasal symptoms, No sore throat, No tinnitus, No dental problems, No trouble swallowing, No problem reported Respiratory: No cough, No sputum, No wheezing, No shortness of breath, No dyspnea on exertion, No dyspnea at rest, No hemoptysis, No problem reported Cardiovascular: No chest pain, No orthopnea, No PND, No edema, No claudication , No palpitations, No problem reported Abdomen: + pain Musculoskeletal: No joint pain, No muscle pain, No swelling, No calf pain, No problem reported Neurologic: + problem reported (Confused and difficult to control.) Psychiatric: No depression symptoms, No anhedonism, No anxiety, No insomnia, No substance abuse, No problem reported Hematologic / Lymphatic: No abnormal bleeding/bruising, No clotting problems, No swollen lymph nodes, No night sweats, No problem reported Allergic / Immunologic: No environmental allergies, No seasonal allergies, No pet sensitivities, No food allergies, No hives, No frequent infections, No poor healing, No prolonged convalescence, No problem reported Physical Exam Date Time Temp Pulse Resp B/P (MAP) Pulse Ox O2 Delivery O2 Flow Rate FiO2 09/29/17 17:31 38.9 84 17 172/79 (110) 99 Nasal Cannula 3.0 09/29/17 17:01 82 19 165/87 (113) 99 Nasal Cannula 3.0 09/29/17 16:35 86 27 145/84 (104) 94 Nasal Cannula 3.0 09/29/17 16:28 89 25 155/106 (122) 90 Room Air 09/29/17 16:24 36.4 70 16 95 09/29/17 15:44 36.2 70 16 141/80 (100) 95 Room Air 09/29/17 11:45 36.5 74 18 134/60 (84) 95 Room Air 09/29/17 08:15 Room Air 09/29/17 07:01 36.5 74 17 178/82 (114) 93 Room Air 09/29/17 06:24 36.6 79 21 156/83 Room Air 09/29/17 05:35 72 18 129/96 96 09/29/17 03:18 66 09/29/17 01:42 73 18 143/74 98 Room Air 09/29/17 00:58 65 18 173/98 100 Room Air 09/28/17 23:22 69 09/28/17 23:11 36.5 65 18 119/60 98 Room Air General Appearance: moderate distress Eyes: EOMI ENT: normal throat exam Neck: trachea midline Respiratory: breath sounds normal, clear to auscultation Cardiovasular: regular rate/rhythm, normal S1S2, no M/G/R, no murmur Abdomen: other (Tenderness mainly around the periumbilical area superiorly, lower quadrants appear to be more soft, abdomen guarding was notable in the epigastric area down to the umbilical area.) Lower Extremities: no edema Pulses: dorsalis pedis (R) (1+), dorsalis pedis (L) (1+), posterior tibial (R) (1+), posterior tibial (L) (1+) Neuro: alert, confused Psychiatric: anxious Laboratory Results Last 24 Hours Test 09/29/17 00:05 09/29/17 16:40 09/29/17 16:48 White Blood Count 8.73 K/uL 9.24 K/uL Red Blood Count 3.52 M/uL 3.41 M/uL Hemoglobin 9.7 g/dL 9.4 g/dL Hematocrit 30.3 % 29.3 % Mean Corpuscular Volume 86.1 fL 85.9 fL Mean Corpuscular Hemoglobin 27.6 pg 27.6 pg Mean Corpuscular Hemoglobin Concent 32.0 g/dl 32.1 g/dl Platelet Count 187 K/uL 213 K/uL Mean Platelet Volume 9.9 fL 9.7 fL Neutrophils (%) (Auto) 57.2 % 75.0 % Lymphocytes (%) (Auto) 24.9 % 10.6 % Monocytes (%) (Auto) 13.9 % 11.5 % Eosinophils (%) (Auto) 3.0 % 1.9 % Basophils (%) (Auto) 0.7 % 0.6 % Neutrophils # (Auto) 5.00 K/uL 6.92 K/uL Lymphocytes # (Auto) 2.17 K/uL 0.98 K/uL Monocytes # (Auto) 1.21 K/uL 1.06 K/uL Eosinophils # (Auto) 0.26 K/uL 0.18 K/uL Basophils # (Auto) 0.06 K/uL 0.06 K/uL RDW Standard Deviation 68.3 fL 67.9 fL RDW Coefficient of Variation 21.7 % 21.9 % Immature Granulocyte % (Auto) 0.3 % 0.4 % Immature Granulocyte # (Auto) 0.03 K/uL 0.04 K/uL Polychromasia 1+ Anisocytosis PRESENT PRESENT Sodium Level 134 mmol/L 132 mmol/L Potassium Level 4.1 mmol/L 3.9 mmol/L Chloride Level 103 mmol/L 97 mmol/L Carbon Dioxide Level 25 mmol/L 28 mmol/L Anion Gap 6.0 mmol/L 7.0 mmol/L Blood Urea Nitrogen 11 mg/dl 10 mg/dl Creatinine 0.97 mg/dl 0.91 mg/dl Estimated GFR () 67.2 72.5 Estimated GFR (Non- 57.9 62.6 BUN/Creatinine Ratio 11.0 10.9 Random Glucose 85 mg/dl 100 mg/dl Calcium Level 7.6 mg/dl 7.9 mg/dl Magnesium Level 1.9 mg/dl Total Bilirubin 1.9 mg/dl Direct Bilirubin 1.2 mg/dl Aspartate Amino Transf (AST/SGOT) 48 U/L Alanine Aminotransferase (ALT/SGPT) 22 U/L Alkaline Phosphatase 211 U/L Total Creatine Kinase 90 U/L Pro-B-Type Natriuretic Peptide 1793 pg/ml Total Protein 6.9 gm/dl Albumin 2.8 gm/dl Lipase 322 U/L Hypochromasia PRESENT Prothrombin Time 12.2 SECONDS Prothromb Time International Ratio 1.2 Est Creatinine Clear Calc Drug Dose 44.5 ml/min Lactic Acid Level 1.9 mmol/L Bedside Venous pH 7.50 Bedside Venous pCO2 39 mmHg Bedside Venous pO2 < 32 mmHg Bedside Venous HCO3 30 meq/L Bedside Venous Blood Total CO2 31 mEq/l Bedside Venous Blood O2 Saturation 38.0 % Bedside Venous Blood Base Excess 7.0 meq/L Diagnostic Results Data were reviewed including CAT scan of the abdomen showing endoluminal stent of the descending aorta, dissection below the distant end of the stent. Extending to the bifurcation of the aorta, narrowing of the SMA, left renal artery stenting, no abnormality in the bowel loops, thickened endometrial mucosa., lactic acid is 1.9, WBC still normal, BUN/creatinine are normal, echocardiogram showed ejection fraction of 65% with no wall motion abnormality, Assessment & Plan 1. Acute abdomen with guarding mainly in the epigastric area extending to the umbilicus, her symptoms appear to be related to ongoing aortic dissection, the patient has good pulses in the periphery and initially she did have livedo reticularis which has subsided with IV fluid. 2. Hypertensive urgency with a blood pressure systolic of 190-200, requiring IV antihypertensive medication. 3. History of liver cirrhosis secondary to hemochromatosis. 4. Type II thoracic aortic aneurysm, status post endoluminal stenting. 5. Agitation with confusion related to acute illness. 6. Metabolic alkalosis with volume contraction. Plan: 1. We will start to hydrate the patient normal saline at 100 an hour. 2. Nicardipine for blood pressure control to keep map of 65-80. 3. The patient did have one episode of fever, it is concerning to me whether the patient is developing mesenteric ischemia. The CAT scan did not support the diagnosis and lactic acid was only 1.9. No other source for fever at this point. 4. Central line was placed due to poor IV access in this patient was critically ill. Dictated separately. Using standard ICU sterility and ultrasound. 5. Right radial A-line was placed and dictated separately. 6. The case discussed with Dr. Morgan, Dr. Prieto, and Dr. Morgan discussed the case with Dr. Posey from vascular surgery at [facility], appreciate their acceptance of this case to the tertiary care center. 7. The rest of her laboratory has been reviewed. All appeared within her baseline. Case discussed with the staff and details and with the daughter Kylah, she agreed with the plan, patient will be life flighted to [facility]. Critical care time spent with the patient was 60 minutes excluding procedure time.
--- NOTE | 2017-09-29 17:54 | Procedure Note ---
Procedure Note Procedure Date Sep 29, 2017. Procedure Description Procedure Name: Central line placement Procedure time out: side/site verified, patient ID confirmed, correct procedure Consent obtained: verbal Performed by: attending Indications: diagnostic, therapeutic Contraindications: none Description: Central line placement, needed for patient was critically ill requiring multiple IV sites and she has poor IV access. Consent obtained from the daughter Kylah over the phone, and confirmed with the nurse Chayo over the phone. Risk and benefit explained details, agreed to the procedure. The patient was placed in supine position under strict sterile field using full- body cover, the skin was prepped with chlorhexidine, and at the anterior IJ site , under ultrasound guidance using strict sterile gel, the IJ was noted, the skin was injected with 5 mL 1% lidocaine, one attempt, the line was placed over the wire using Seldinger technique, no scalpel was used, only a dilator. The line was flushed with all ports with normal saline 3 ports, the line was secured with 2 sutures, covered with surgical dressing. Chest x-ray showed the tip of the line at the SVC junction. No pneumothorax. May use a line. No immediate complication, the patient tolerated the procedure well. Complications: none Patient tolerated procedure: well
--- NOTE | 2017-09-29 17:55 | Procedure Note ---
Procedure Note Procedure Date Sep 29, 2017. Procedure Description Procedure Name: A line placement. Procedure time out: side/site verified, patient ID confirmed, correct procedure Consent obtained: verbal Performed by: attending Indications: diagnostic Contraindications: none Description: A line was placed in the right radial area, under strict sterile field, the need for blood pressure controlled in a patient with aortic dissection. Using Seldinger technique, one attempt, the line was placed and secured with 1 suture , covered with surgical dressing, A waves were noted on the monitor, blood pressure was initially 183/110. Patient tolerated the procedure very well, no immediate complication, may use a line. Complications: none Patient tolerated procedure: well
--- NOTE | 2017-09-29 17:58 | DIAGNOSTIC IMAGING REPORT ---
SINGLE VIEW CHEST CLINICAL HISTORY: Central venous catheter placement. FINDINGS: An AP, portable, upright chest radiograph is compared to study dated 09/28/2017. The examination is degraded by portable technique and patient rotation. A right internal jugular central venous catheter has been placed. The tip of the catheter projects over the cavoatrial junction. The heart is top normal in size and there is atherosclerotic calcification of the thoracic aorta. A descending thoracic aortic stent graft is again noted. There is mild pulmonary vascular congestion. Bibasilar atelectasis is observed. No large pleural effusion or pneumothorax is seen. The skeletal structures are osteopenic. The bony thorax is grossly intact. IMPRESSION: 1. A right internal jugular central venous catheter has been placed as above. No pneumothorax is identified post procedure. 2. Mild pulmonary vascular congestion is new from today's earlier examination. 3. There is bibasilar atelectasis. No airspace consolidation is seen typical for pneumonia and no large pleural effusion is identified. Electronically signed by: Barron Wheat M.D. 09/29/2017 5:57 PM Dictated Date/Time: 09/29/2017 5:55 PM
--- NOTE | 2017-09-29 18:52 | Discharge Summary ---
Discharge Summary Date of Service Sep 29, 2017. Discharge Summary Admission Date: Sep 29, 2017 at 04:38 Discharge Date: Sep 29, 2017 Discharge Disposition: Acute care facility ([facility]) Principal Diagnosis: Aortic dissection, intractable abdominal pain Problems/Secondary Diagnoses: Hemochromatosis Cirrhosis GERD Esophageal varices Mesenteric artery stenosis HTN Immunizations: Have You Had Influenza Vaccine: No History of Tetanus Vaccine?: No History of Pneumococcal: No History of Hepatitis B Vaccine: No Procedures: Echocardiogram: Left ventricular systolic function is normal. * Grade I diastolic dysfunction, (abnormal relaxation pattern). * The left atrium is mildly dilated. Arterial line placement Right internal jugular central venous line placement CT angiogram abdomen/pelvis Chest x-ray CT abdomen/pelvis with IV contrast KUB Liver ultrasound Consultations: Critical care medicine Medication Reconciliation Continued Medications: Ascorbic Acid (Ascorbic Acid) 1,000 Mg Tab 1 TAB PO QAM Aspirin (Aspirin Ec) 81 Mg Tab 81 MG PO DAILY Carvedilol (Coreg) 3.125 Mg Tab 3.125 MG PO BID, TAB Clopidogrel (Plavix) 75 Mg Tab 75 MG PO DAILY, TAB Docusate Sodium (Colace) 100 Mg Cap 1 CAP PO BID, CAP Magnesium Oxide (Mag-Ox) 400 Mg Tab 400 MG PO QAM, TAB Omeprazole (Prilosec) 20 Mg Capcr 20 MG PO QAM, CAP Oxycodone Hcl (Oxycodone Hcl) 5 Mg Cap 2.5 MG PO Q4 PRN for Moderate Pain for 30 Days, CAP Discharge Exam Review of Systems: Constitutional: + fever (Just prior to transfer) Eyes: No problem reported ENT: No problem reported Respiratory: No shortness of breath Cardiovascular: No chest pain Abdomen: + pain Musculoskeletal: No problem reported Genitourinary - Female: No problem reported Neurologic: No problem reported Psychiatric: No problem reported Endocrine: No problem reported Hematologic / Lymphatic: No problem reported Integumentary: No problem reported Physical Exam: General Appearance: + severe distress Eyes: normal inspection, PERRL, EOMI, sclerae normal ENT: hearing grossly normal, pharynx normal Neck: trachea midline Respiratory/Chest: lungs clear, normal breath sounds, no respiratory distress, no accessory muscle use Cardiovascular: regular rate, rhythm, normal peripheral pulses, + pertinent finding (2+ pitting edema of lower extremities to the mid thigh bilaterally) Abdomen / GI: + tenderness (Diffuse abdominal pain with guarding, no masses ; bilateral inguinal regions with sukhi in place, no active bleeding) Extremities: + swelling (As above) Neurologic/Psychiatric: + pertinent finding (Distressed, intermittently answers questions, occasionally stares off and won't make eye contact) Skin: warm/dry, + pallor Lymphatic: no adenopathy Hospital Course This pt is a 72 year old female with a PMHx of recent Type B thoracic aortic Dissection (fl'ed from [facility] 09/28/17) with endostent placement, hemochromatosis & cirrhosis, mesenteric artery stenosis, who presents with intractable abdominal pain and bilateral leg edema with pain, all worsening since her discharge from [facility] [address] scan showed extension of her aortic dissection beyond her stent which upon review with the intranet specialist and myself seemed to have a larger false lumen than previously. She had intact pedal pulses, but intractable and severe abdominal pain. Her lactate was normal after admission, she was not acidotic, and repeat CT scan did not show any evidence of bowel ischemia . She was given IV dilaudid for pain control , her hypertension was managed with a nicardipine drip. She was admitted to the telemetry unit and later transitioned to the ICU. She had an arterial line and central line placed and discussion was had with our Vascular Surgeon here over the phone who reviewed her scans and discussed the case with Vascular Surgery at [facility]. Decision was made to transfer her by life flight back to [facility] in case of need for repeat intervention to her dissecting aorta. Her LE edema was thought to be due to decompensated cirrhosis-was given IV lasix and albumin. Incidentally noted was an abnormality in the CT of thickened endometrium-she should have a non urgent evaluation of this with pelvic US after discharge from the hospital. Total Time Spent: Greater than 30 minutes This includes examination of the patient, discharge planning, medication reconciliation, and communication with other providers. Discharge Instructions Please refer to the electronic Patient Visit Report (Discharge Instructions) for additional information. Additional Copies To Beatris Noriega PA-C
[2017-09-30] MEDS ORDERED: FUROSEMIDE INJ 40 MG in SYRINGE 0 ML IV SCH (09:00)
== END 2017-09-29 18:25 | disposition short-term general hospital (02) | DRG 300 ==
LOC: C.EDB 23:07 → ENRESERV 09-29 04:11 → CANRESERV 09-29 04:11 → ENRESERV 09-29 04:29 → CANRESERV 09-29 04:29 → C.2T 09-29 04:38 → EDBEDREQ 09-29 04:50 → EDBEDREQSVC 09-29 04:50 → ENRESERV 09-29 05:29 → C.MSICU 09-29 16:31
PROVIDERS: ADMIT Hospitalist; ATTEND Family Medicine
PROC: 02HV33Z Insertion of Infusion Device into Superior Vena Cava, Percutaneous Approach (ICD-10-PCS; principal; 2017-09-29)
PROC: 03HY32Z Insertion of Monitoring Device into Upper Artery, Percutaneous Approach (ICD-10-PCS; principal; 2017-09-29)
DX: I71.01 Dissection of thoracic aorta (principal); K55.1 Chronic vascular disorders of intestine; R18.8 Other ascites; I85.10 Secondary esophageal varices without bleeding; E87.3 Alkalosis; K74.60 Unspecified cirrhosis of liver; E83.110 Hereditary hemochromatosis; Z88.5 Allergy status to narcotic agent; K21.9 Gastro-esophageal reflux disease without esophagitis; I10 Essential (primary) hypertension; D64.9 Anemia, unspecified; I73.9 Peripheral vascular disease, unspecified; Z98.890 Other specified postprocedural states

== ENCOUNTER 2018-07-22 18:15 | Inpatient (IN) ==
[2018-07-22] MEDS ORDERED: FAMOTIDINE 20MG/5ML IV PUSH IV STA (18:52)
[2018-07-22] MEDS ORDERED: MoRPHine SULFATE 2 MG/ML CARP IV STA ×2 (18:52→23:56)
--- NOTE | 2018-07-22 18:52 | Emergency Department Note ---
ED Visit Note I assisted attending Dr. Be in the care of this patient. Please see attending's note for details of the visit. Nabila Lny MD Machine Pack Assembler PGY-2 . Resident Activity Tracking Resident Involvement: Resident Care Provided Care Provided: Adult ED
[2018-07-22] MEDS ORDERED: SODIUM CHLORIDE 0.9% 1000ML 1,000 ML IV SCH (19:00)
[2018-07-22 19:13] LABS: Basophils # (auto) 0.04 K/uL (0-0.2); Basophils % (auto) 0.3 %; Eosinophils # (auto) 0.16 K/uL (0-0.5); Eosinophils % (auto) 1.2 %; Hematocrit (blood only) 37.9 % (37-47); Hemoglobin 13.1 g/dL (12.0-16.0); Immature Granulocytes # (auto) 0.03 K/uL (0.00-0.02); Immature Granulocytes % (auto) 0.2 %; Lymphocytes # (auto) 1.18 K/uL (1.2-3.4); Lymphocytes % (auto) 8.8 %; Mean Corpuscular Hgb Conc 34.6 g/dL (32-36); Mean Corpuscular Volume 100.3 fL (80-100); Monocytes # (auto) 0.93 K/uL (0.11-0.59); Monocytes % (auto) 6.9 %; Neutrophils # (auto) 11.13 K/uL (1.4-6.5); Neutrophils % (auto) 82.6 %; Platelet Count 161 K/uL (130-400); RDW Coefficient of Variation 14.9 % (11.5-14.5); RDW Standard Deviation 53.3 fL (36.4-46.3); Red Blood Count 3.78 M/uL (4.2-5.4); White Blood Count 13.47 K/uL (4.8-10.8)
[2018-07-22 19:35] LABS: Alanine Aminotransferase 31 U/L (12-78); Albumin Level 3.4 gm/dl (3.4-5.0); Aspartate Aminotransferase 57 U/L (15-37); BUN Creatinine Ratio 20.4 (10-20); Blood Urea Nitrogen 16 mg/dl (7-18); Calcium 9.2 mg/dl (8.5-10.1); Carbon Dioxide 27 mmol/L (21-32); Chloride 109 mmol/L (98-107); Creatinine Clr Calc Pharmacy 53.9 ml/min; Est GFR (African American) 85.5; Est GFR (Non-African American) 73.7; Glucose 111 mg/dl (70-99); Potassium 4.1 mmol/L (3.5-5.1); Sodium 143 mmol/L (136-145)
[2018-07-22 19:40] LABS: Albumin Globulin Ratio 0.8 (0.9-2); Alkaline Phosphatase 226 U/L (45-117); Bilirubin,Total 1.4 mg/dl (0.2-1); Globulin 4.2 gm/dl (2.5-4.0); Total Protein 7.6 gm/dl (6.4-8.2); Troponin I < 0.015 ng/ml (0-0.045)
[2018-07-22] MEDS ORDERED: OPTIRAY 320 125ml IV PRN (20:27)
--- NOTE | 2018-07-22 20:52 | CT Scan Report ---
CHEST, ABDOMEN, PELVIS CTA for AORTIC DISSECTION CT DOSE: 900.68 mGy.cm HISTORY: hx type B dissection, htn, right-sided chest pain. Lower back pain. TECHNIQUE: Multiaxial CT images of the chest were performed both before and after the intravenous adm inistration of contrast to evaluate the aorta. Maximal intensity projection images were also obtained . A dose lowering technique was utilized adhering to the principles of ALARA. COMPARISON STUDY: Chest abdomen and pelvis CTA 04/03/2018. Abdomen and pelvis CT 09/29/2017. FINDINGS: Noncontrast imaging through the chest shows no evidence for an intramural hematoma within t he thoracic aorta. Focal severe stenosis at the proximal right subclavian artery, unchanged. There is also moderate stenosis at the takeoff of the left subclavian artery. There is a stent graft within t he descending thoracic aorta. No evidence for an aortic dissection within the thoracic aorta. Mild an eurysmal dilatation of the descending thoracic aorta measuring 3.3 cm. This on image 175 there is a s mall focus of contrast within the posterior aneurysm sac secondary to a small lumbar radicle vessel. Therefore, this is consistent with a type II endoleak. This remains unchanged. No evidence for pulmon lydia embolus. No fractures within the visualized osseous structures of the chest. No mediastinal hemat markel. No mediastinal or hilar lymphadenopathy. The heart is normal in size. Normal esophagus. No pleur al or pericardial effusions. No pneumothorax. The central airways are patent. Small patchy airspace o pacity within the right lung base posteriorly. This favors atelectasis. Multiple additional linear de nsities within the lung bases also favor atelectasis are scarring. Otherwise, no focal lung consolida tions to suggest pneumonia. No pneumoperitoneum. No pneumatosis. No fractures within the abdomen or pelvis. Subtle nodular contou r to the liver suggestive of cirrhosis. The spleen, adrenal glands, pancreas, and right kidney are un remarkable. No hydronephrosis. 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 This remains unchan ged. No retroperitoneal lymphadenopathy. Trace perihepatic ascites. There is also small amount of per icholecystic fluid and gallbladder wall thickening. There are few punctate gallstones. Mild hyperemia within the gallbladder wall. The gallbladder is also mildly distended. The bladder, uterus, bilatera l adnexa are unremarkable. No bowel wall thickening or obstruction. Moderate calcified plaque within the abdominal aorta and iliac arteries. There is a left renal artery and left common iliac artery kevin nt. These are patent. The bilateral common and external iliac arteries are widely patent. The celiac artery is patent. There is focal high-grade stenosis at the origin of the superior mesenteric artery due to the calcified plaque. There is also moderate to severe stenosis at the origin of the inferior mesenteric artery. This remains unchanged. Small focal chronic dissection of the distal abdominal aor ta, unchanged. This is immediately inferior to the takeoff of the inferior mesenteric artery and exte nds to the bifurcation. IMPRESSION: 1. No evidence for a thoracic aortic dissection. 2. Prior stent graft repair within the descending thoracic aorta. There is mild aneurysmal dilatation of the descending thoracic aorta which measures up to 3.3 cm, unchanged. 3. There is evidence for a tiny type II endoleak within the descending thoracic aorta. This is also s table. 4. Trace perihepatic ascites. There is also small amount of pericholecystic fluid and gallbladder wal l thickening. There are few punctate gallstones. Mild hyperemia within the gallbladder wall. The gall bladder is also mildly distended. These findings could be due to the patient's cirrhosis or possibly a developing acute cholecystitis. Clinical correlation recommended. 5. Stable small focal chronic dissection within the distal dominant aorta. 6. Additional findings as described above. Electronically signed by: Guero Cota M.D. 07/22/2018 8:49 PM
[2018-07-22] MEDS ORDERED: PIPERACILLIN/TAZOBACTAM 3.375 GM/115 ML BAG IV STA (21:13)
[2018-07-22] MEDS ORDERED: PIPERACILL/TAZOBAC CONSULT ACTIVE PRN (21:13)
--- NOTE | 2018-07-22 21:59 | Surgery Consultation ---
Date of Consultation July 22, 2018 Assessment & Plan (1) Abdominal pain: Pt is a 73 yo female with history of a type b aortic dissection, cirrhosis, hemochromatosis, and reflux. She presents with sudden onset of epigastric pain radiating between her shoulder blades and chest as well as elevated LFTs. However her LFTs are chronically elevated. CT scan shos perihepatic ascites in addition to trace pericholecystic fluid, gallbladder wall thickening, and a few punctate stones. Certainly this is concerning for possible cholecystitis, but she also has other potentially confounding factors as well. - Recommend Hospitalist admission - Obtain RUQ U/S to further assess for cholecystitis - Add on direct bilirubin to labs from today, repeat WBC and LFTs tomorrow - Start on IV abx for potential cholecystitis vs other infectious etiology - Would appreciate surgical risk stratification/clearance in preparation for potential surgery - She is also on Plavix, so would need to wait until this has "worn off" prior to proceeding with surgery - Recommend GI consult to evaluate severity of cirrhosis (in part to help with risk stratification for potential surgical intervention) and possible contributions of the cirrhosis and hemochromatosis on lab and imaging findings. - May need to consider consultation for endoleak if not currently being followed, though imaging states it is stable from prior images History of Present Illness Reason for Consultation: Possible cholecystitis History of Present Illness The patient is a 73 yo female with PMHx significant for but not limited to Type B aortic dissection s/p stent (surgical records not currently available), cirrhosis, hemochromatosis, and reflux. She presents today with sudden epigastric pain that started around 3:30 this afternoon, radiating to her RUQ, chest and between her shoulder blades. She had associated nausea but no vomiting. Episode was unrelated to food. She denies any prior similar history. However, she has a history of reflux and reports a "bile taste" in her mouth and heartburn. She was on Nexium but states this was stopped because of her medications required after her stent. PSHx significant for a tubal ligation and incidental appendectomy performed at the same time. She denies every having an EGD. Because of the history of aortic dissection a CTA of the chest was obtained, which showed concerns for possible cholecystitis. She also has a leukocytosis and elevated LFTs, though also has history of chronically elevated LFTs. 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 Status post TEVAR 09/2017 from the mid thoracic aorta to the celiac artery. Also a 5 x 17-mm bare-metal stent placed in the left superior renal artery and an 8 x 37 bare-metal stent in the left iliac artery. Hypertension (Acute) Surgical History History of abdominal aortic aneurysm (AAA) repair Aneurysm (Acute) Family History Other Family history non-contributory Social History Feels Safe at Home: Yes Smoking Status: Former smoker Review of Systems Constitutional: no fever and no chills Respiratory: + dyspnea describes "weakness with breathing from anemia" Cardiovascular: + chest pain; no palpitations Gastrointestinal: See HPI Genitourinary: no dysuria Physical Exam Constitutional: no acute distress Eyes: PERRL, conjunctivae normal, anicteric sclerae ENMT: external ear and nose normal, oropharynx normal Neck: normal visual inspection Respiratory: normal respiratory effort Cardiovascular: Rate/Rhythm: regular rate Gastrointestinal (Abdomen): soft, nondistended, epigastric tenderness Skin: no rashes, warm and dry no jaundice Neurologic: Alert Results & Data Vital Signs (Past 12 Hours) Vital Signs Temp Pulse Pulse Resp BP BP Pulse Ox 07/22/18 20:10 75 16 160/86 H 94 07/22/18 19:23 73 19 188/93 H 95 07/22/18 18:29 36.7 C 76 18 182/85 H 93 Laboratory Results 07/22/18 07/22/18 Range/Units 19:10 19:10 WBC 13.47 H (4.8-10.8) K/uL RBC 3.78 L (4.2-5.4) M/uL Hgb 13.1 (12.0-16.0) g/dL Hct 37.9 (37-47) % MCV 100.3 H (80-100) fL MCH 34.7 H (25-34) pg MCHC 34.6 (32-36) g/dL RDW Std Deviation 53.3 H (36.4-46.3) fL RDW Coeff of Conner 14.9 H (11.5-14.5) % Plt Count 161 (130-400) K/uL MPV 10.0 (7.4-10.4) fL Immature Gran % (Auto) 0.2 % Neut % (Auto) 82.6 % Lymph % (Auto) 8.8 % [place] % (Auto) 6.9 % Eos % (Auto) 1.2 % Baso % (Auto) 0.3 % Immature Gran # (Auto) 0.03 H (0.00-0.02) K/uL Neut # (Auto) 11.13 H (1.4-6.5) K/uL Lymph # (Auto) 1.18 L (1.2-3.4) K/uL [place] # (Auto) 0.93 H (0.11-0.59) K/uL Eos # (Auto) 0.16 (0-0.5) K/uL Baso # (Auto) 0.04 (0-0.2) K/uL Sodium 143 (136-145) mmol/L Potassium 4.1 (3.5-5.1) mmol/L Chloride 109 H (98-107) mmol/L Carbon Dioxide 27 (21-32) mmol/L Anion Gap 7.0 (3-11) BUN 16 (7-18) mg/dl Creatinine 0.79 (0.6-1.2) mg/dl Est Cr Clr Drug Dosing 53.9 ml/min Est GFR ( Amer) 85.5 Est GFR (Non-Af Amer) 73.7 BUN/Creatinine Ratio 20.4 H (10-20) Glucose 111 H (70-99) mg/dl Calcium 9.2 (8.5-10.1) mg/dl Total Bilirubin 1.4 H (0.2-1) mg/dl AST 57 H (15-37) U/L ALT 31 (12-78) U/L Alkaline Phosphatase 226 H (45-117) U/L Troponin I < 0.015 (0-0.045) ng/ml Total Protein 7.6 (6.4-8.2) gm/dl Albumin 3.4 (3.4-5.0) gm/dl Globulin 4.2 H (2.5-4.0) gm/dl Albumin/Globulin Ratio 0.8 L (0.9-2) Diagnostic Findings ISTORY: hx type B dissection, htn, right-sided chest pain. Lower back pain. TECHNIQUE: Multiaxial CT images of the chest were performed both before and after the intravenous administration of contrast to evaluate the aorta. Maximal intensity projection images were also obtained. A dose lowering technique was utilized adhering to the principles of ALARA. COMPARISON STUDY: Chest abdomen and pelvis CTA 04/03/2018. Abdomen and pelvis CT 09/29/2017. FINDINGS: Noncontrast imaging through the chest shows no evidence for an intramural hematoma within the thoracic aorta. Focal severe stenosis at the proximal right subclavian artery, unchanged. There is also moderate stenosis at the takeoff of the left subclavian artery. There is a stent graft within the descending thoracic aorta. No evidence for an aortic dissection within the thoracic aorta. 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 This on image 175 there is a small focus of contrast within the posterior aneurysm sac secondary to a small lumbar radicle vessel. Therefore, this is consistent with a type II endoleak. This remains unchanged. No evidence for pulmonary embolus. No fractures within the visualized osseous structures of the chest. No mediastinal hematoma. No mediastinal or hilar lymphadenopathy. The heart is normal in size. Normal esophagus. No pleural or pericardial effusions. No pneumothorax. The central airways are patent. Small patchy airspace opacity within the right lung base posteriorly. This favors atelectasis. Multiple additional linear densities within the lung bases also favor atelectasis are scarring. Otherwise, no focal lung consolidations to suggest pneumonia. No pneumoperitoneum. No pneumatosis. No fractures within the abdomen or pelvis. Subtle nodular contour to the liver suggestive of cirrhosis. The spleen, adrenal glands, pancreas, and right kidney are unremarkable. No hydronephrosis. 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 This remains unchanged. No retroperitoneal lymphadenopathy. Trace perihepatic ascites. There is also small amount of pericholecystic fluid and gallbladder wall thickening. There are few punctate gallstones. Mild hyperemia within the gallbladder wall. The gallbladder is also mildly distended. The bladder, uterus, bilateral adnexa are unremarkable. No bowel wall thickening or obstruction. Moderate calcified plaque within the abdominal aorta and iliac arteries. There is a left renal artery and left common iliac artery stent. These are patent. The bilateral common and external iliac arteries are widely patent. The celiac artery is patent. There is focal high-grade stenosis at the origin of the superior mesenteric artery due to the calcified plaque. There is also moderate to severe stenosis at the origin of the inferior mesenteric artery. This remains unchanged. Small focal chronic dissection of the distal abdominal aorta, unchanged. This is immediately in ferior to the takeoff of the inferior mesenteric artery and extends to the bifurcation. IMPRESSION: 1. No evidence for a thoracic aortic dissection. 2. Prior stent graft repair within the descending thoracic aorta. There is mild aneurysmal dilatation of the descending thoracic aorta which measures up to 3.3 cm, unchanged. 3. There is evidence for a tiny type II endoleak within the descending thoracic aorta. This is also stable. 4. Trace perihepatic ascites. There is also small amount of pericholecystic fluid and gallbladder wall thickening. There are few punctate gallstones. Mild hyperemia within the gallbladder wall. The gallbladder is also mildly distended. These findings could be due to the patient's cirrhosis or possibly a developing acute cholecystitis. Clinical correlation recommended. 5. Stable small focal chronic dissection within the distal dominant aorta. 6. Additional findings as described above.
--- NOTE | 2018-07-22 23:11 | History & Physical Report ---
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 Cholecystitis/Abnormal LFTs/Abdominal pain -As evidenced on CT angio -Gen surg consulted, appreciate recs -RUQ uss ordered -Holding plavix for possible intervention -Morhpine 2mg q4h prn for pain -NPO -IVF NSS 125 -Zosyn started -Monitor labs Cirrhosis 2/2 hereditary hemochromatosis -Pt has some degree of chronically elevated LFTs -GI consult placed Aortic Dissection -s/p Stent placement in [place] -Small stable endoleak noted on CTA -Consider referral to vascular -Holding plavix as above HTN -Continue losartan and carvedilol HLD -Cont pravastatin Depression -Cont fluoxetine Code: Full Dispo: admit to med/surg DVTP: SCDs *Contact info: Kylah Moeller, daughter/POA: [phone] or Sayra, daughter: [phone] (2) Abnormal LFTs: (3) Abdominal pain: (4) Hypertension: (5) Hyperlipidemia: (6) Depression: (7) Hemochromatosis: (8) Cirrhosis of liver: (9) Aortic dissection: History of Present Illness Chief Complaint: RUQ pain Primary Care Provider: Beatris Noriega PA-C Patient is a pleasant 73yo F PMH aortic dissection s/p stent placement, 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 This was associated with some nausea but no vomiting. Patient felt it was some reflux but did not alleviate with her antacid, and considering her history of dissection, came to the ER. In the ER, labs revealed mildly elevated WBC of 13.5, normal BMP, LFTs showing Tbili 1.4, D bili .7, AST 57, ALT 31, Alk phos 226. She has chronic elevation of LFTs in setting of liver pathology but compared to levels drawn in Feb 2018, today's levels are elevated. She required morphine for pain. A CT angio was performed which revealed possible cholecystitis, trace pericholecystic fluid, gallbaldder wall thickening, perihepatic ascites, punctate stones, small stable endoleak of descending aorta. General surgery was consulted who recommended RUQ uss, IV abx, GI consult, holding plavix, and will assess in AM for further evaluation. Allergies Allergy/AdvReac Type Severity Reaction Status Date / Time pollen extracts Allergy Intermediate Swelling Unverified 07/22/18 23:10 of throat Yyqqjyf-Rey-Sof Reductase AdvReac Severe Blistering Unverified 07/22/18 23:03 Inhibitor of Mouth codeine AdvReac Intermediate vomiting Verified 07/23/18 00:36 Home Medications Home Medications Medication Instructions Recorded Confirmed Type acetaminophen [Tylenol Extra 500 mg PO UD PRN 07/22/18 07/22/18 History Strength] carvedilol 6.25 mg PO BID 07/22/18 07/22/18 History clopidogrel 75 mg PO DAILY 07/22/18 07/22/18 History fluoxetine 20 mg PO QAM 07/22/18 07/22/18 History losartan 50 mg PO QAM 07/22/18 07/22/18 History ranitidine HCl 150 mg PO BID 07/22/18 07/22/18 History Past Med/Surg History Medical History 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 Status post TEVAR 09/2017 from the mid thoracic aorta to the celiac artery. Also a 5 x 17-mm bare-metal stent placed in the left superior renal artery and an 8 x 37 bare-metal stent in the left iliac artery. Hypertension (Acute) Surgical History History of abdominal aortic aneurysm (AAA) repair September of 2017 Aneurysm (Acute) Family History Other Family history non-contributory Social History Preferred Language: Georgian Communication Ability: Effective Communication Ability Comment: Pt [place] & has glasses Stereotyper Helper Required: No Beliefs That Will Affect Care: None Current Living Situation: Spouse Current Living Situation Comment: at home with Other Information That Helps Us Care for You: No Feels Safe at Home: Yes Safety Concerns: Feels Safe At This Time Smoking Status: Former smoker Hx Alcohol Use: No Hx Substance Use: No Review of Systems Review of Systems: All systems reviewed & are unremarkable except as noted in HPI & below Constitutional: no fever, no chills and no body aches Respiratory: + pain on inspiration and + pain with cough Cardiovascular: + chest pain (epigastric/retrosternal) Gastrointestinal: + abdominal pain, + heartburn and + nausea; no vomiting and no change in bowel habits Integumentary: + pruritus Physical Exam Constitutional: average body habitus and comfortable; no acute distress and n ot ill appearing Eyes: PERRL, conjunctivae normal, anicteric sclerae ENMT: external ear and nose normal, oropharynx normal Neck: normal visual inspection Respiratory: normal respiratory effort, lungs clear to auscultation Cardiovascular: RRR, no murmur, no edema Gastrointestinal (Abdomen): Inspection/Auscultation: abdomen normal to inspection Percussion/Palpation: + abdomen tender (RUQ, epigastrium) and abdomen soft Musculoskeletal: no cyanosis or clubbing, extremities motor strength 5/5 Skin: no rashes, warm and dry no jaundice Neurologic: PERRL, EOMI, accommodation nl, no face palsy, no dysarthria Psychiatric: A+Ox3, euthymic affect Results & Data Vital Signs (Past 12 Hours) Vital Signs Temp Pulse Pulse Resp BP BP Pulse Ox 07/22/18 20:10 75 16 160/86 H 94 07/22/18 19:23 73 19 188/93 H 95 07/22/18 18:29 36.7 C 76 18 182/85 H 93 Laboratory Results 07/22/18 07/22/18 07/22/18 Range/Units 22:02 19:10 19:10 WBC 13.47 H (4.8-10.8) K/uL RBC 3.78 L (4.2-5.4) M/uL Hgb 13.1 (12.0-16.0) g/dL Hct 37.9 (37-47) % MCV 100.3 H (80-100) fL MCH 34.7 H (25-34) pg MCHC 34.6 (32-36) g/dL RDW Std Deviation 53.3 H (36.4-46.3) fL RDW Coeff of Conner 14.9 H (11.5-14.5) % Plt Count 161 (130-400) K/uL MPV 10.0 (7.4-10.4) fL Immature Gran % (Auto) 0.2 % Neut % (Auto) 82.6 % Lymph % (Auto) 8.8 % [place] % (Auto) 6.9 % Eos % (Auto) 1.2 % Baso % (Auto) 0.3 % Immature Gran # (Auto) 0.03 H (0.00-0.02) K/uL Neut # (Auto) 11.13 H (1.4-6.5) K/uL Lymph # (Auto) 1.18 L (1.2-3.4) K/uL [place] # (Auto) 0.93 H (0.11-0.59) K/uL Eos # (Auto) 0.16 (0-0.5) K/uL Baso # (Auto) 0.04 (0-0.2) K/uL Sodium 143 (136-145) mmol/L Potassium 4.1 (3.5-5.1) mmol/L Chloride 109 H (98-107) mmol/L Carbon Dioxide 27 (21-32) mmol/L Anion Gap 7.0 (3-11) BUN 16 (7-18) mg/dl Creatinine 0.79 (0.6-1.2) mg/dl Est Cr Clr Drug Dosing 53.9 ml/min Est GFR ( Amer) 85.5 Est GFR (Non-Af Amer) 73.7 BUN/Creatinine Ratio 20.4 H (10-20) Glucose 111 H (70-99) mg/dl Calcium 9.2 (8.5-10.1) mg/dl Total Bilirubin 1.4 H (0.2-1) mg/dl Direct Bilirubin 0.7 H (0-0.2) mg/dl AST 57 H (15-37) U/L ALT 31 (12-78) U/L Alkaline Phosphatase 226 H (45-117) U/L Troponin I < 0.015 (0-0.045) ng/ml Total Protein 7.6 (6.4-8.2) gm/dl Albumin 3.4 (3.4-5.0) gm/dl Globulin 4.2 H (2.5-4.0) gm/dl Albumin/Globulin Ratio 0.8 L (0.9-2) Diagnostic Findings CHEST, ABDOMEN, PELVIS CTA for AORTIC DISSECTION CT DOSE: 900.68 mGy.cm HISTORY: hx type B dissection, htn, right-sided chest pain. Lower back pain. TECHNIQUE: Multiaxial CT images of the chest were performed both before and after the intravenous administration of contrast to evaluate the aorta. Maximal intensity projection images were also obtained. A dose lowering technique was utilized adhering to the principles of ALARA. COMPARISON STUDY: Chest abdomen and pelvis CTA 04/03/2018. Abdomen and pelvis CT 09/29/2017. FINDINGS: Noncontrast imaging through the chest shows no evidence for an intramural hematoma within the thoracic aorta. Focal severe stenosis at the proximal right subclavian artery, unchanged. There is also moderate stenosis at the takeoff of the left subclavian artery. There is a stent graft within the descending thoracic aorta. No evidence for an aortic dissection within the thoracic aorta. Mild aneurysmal dilatation of the descending thoracic aorta m easuring 3.3 cm. This on image 175 there is a small focus of contrast within the posterior aneurysm sac secondary to a small lumbar radicle vessel. Therefore, this is consistent with a type II endoleak. This remains unchanged. No evidence for pulmonary embolus. No fractures within the visualized osseous structures of the chest. No mediastinal hematoma. No mediastinal or hilar lymphadenopathy. The heart is normal in size. Normal esophagus. No pleural or pericardial effusions. No pneumothorax. The central airways are patent. Small patchy airspace opacity within the right lung base posteriorly. This favors atelectasis. Multiple additional linear densities within the lung bases also favor atelectasis are scarring. Otherwise, no focal lung consolidations to suggest pneumonia. No pneumoperitoneum. No pneumatosis. No fractures within the abdomen or pelvis. Subtle nodular contour to the liver suggestive of cirrhosis. The spleen, adrenal glands, pancreas, and right kidney are unremarkable. No hydronephrosis. 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 This remains unchanged. No retroperitoneal lymphadenopathy. Trace perihepatic ascites. There is also small amount of pericholecystic fluid and gallbladder wall thickening. There are few punctate gallstones. Mild hyperemia within the gallbladder wall. The gallbladder is also mildly distended. The bladder, uterus, bilateral adnexa are unremarkable. No bowel wall thickening or obstruction. Moderate calcified plaque within the abdominal aorta and iliac arteries. There is a left renal artery and left common iliac artery stent. These are patent. The bilateral common and external iliac arteries are widely patent. The celiac artery is patent. There is focal high-grade stenosis at the origin of the superior mesenteric artery due to the calcified plaque. There is also moderate to severe stenosis at the origin of the inferior mesenteric artery. This remains unchanged. Small focal chronic dissection of the distal abdominal aorta, unchanged. This is immediately inferior to the takeoff of the inferior mesenteric artery and extends to the bifurcation. IMPRESSION: 1. No evidence for a thoracic aortic dissection. 2. Prior stent graft repair within the descending thoracic aorta. There is mild aneurysmal dilatation of the descending thoracic aorta which measures up to 3.3 cm, unchanged. 3. There is evidence for a tiny type II endoleak within the descending thoracic aorta. This is also stable. 4. Trace perihepatic ascites. There is also small amount of pericholecystic fluid and gallbladder wall thickening. There are few punctate gallstones. Mild hyperemia within the gallbladder wall. The gallbladder is also mildly distended. These findings could be due to the patient's cirrhosis or possibly a developing acute cholecystitis. Clinical correlation recommended. 5. Stable small focal chronic dissection within the distal dominant aorta. 6. Additional findings as described above. Electronically signed by: Guero Cota M.D. 07/22/2018 8:49 PM Medications Administered Current Inpatient Medications Carvedilol (Coreg) 6.25 mg PO BID BRICE Stop: 08/21/18 23:29 Fluoxetine HCl (Prozac) 20 mg PO QAM [facility] Stop: 08/22/18 08:59 Sodium Chloride (Nss 1000ml) 1,000 mls @ 125 mls/hr IV .Q8H [facility] Stop: 08/21/18 18:59 Last Admin: 07/22/18 20:33 Dose: 125 mls/hr Documented by: Ioversol (Optiray 320 125ml) 119 ml IV ONCE PRN PRN Reason: Interaction Checking Stop: 07/26/18 20:26 Last Admin: 07/22/18 20:27 Dose: 119 ml Documented by: Losartan Potassium (Cozaar) 50 mg PO QAM [facility] Stop: 08/22/18 08:59 Miscellaneous Information (Consult) 1 ea N/A UD PRN PRN Reason: Consult Stop: 08/21/18 21:12 Code Status & VTE Plan Code Status Full code Supervising Physician Co-Signing Physician Notes Patient seen and examined, chart reviewed, case discussed with Dr. Foster and I agree with her assessment and plan as documented above. Briefly, patient is a 73yo C female with cirrhosis secondary to hemochromotosis, AAA s/p stent presenting with acute cholecystitis On exam she is afebrile, hypertensive otherwise stable HEENT: MMM, no jaundice, neck supple Heart: +S1/S2, regular, no m/r/g Lungs: CTA Abd: +RUQ pain, +right shoulder pain Ext: warm, no edema Labs and images reviewed. Admit to medical floor. Obtain RUQUS. GI and General Surgery input appreciated. Zosyn. Pain, nausea control PRN. Remainder of plan as above Endo leak stable Resident Activity Tracking Resident Involvement: Resident Care Provided Care Provided: Adult Hospital Medicine (1) Abdominal pain Abdominal location: unspecified location Qualified Code(s): R10.9 - Unspecified abdominal pain
[2018-07-23] MEDS ORDERED: MoRPHine SULFATE 2 MG/ML CARP ONE (00:33)
[2018-07-23] MEDS ORDERED: PIPERACILL/TAZOBAC CONSULT ACTIVE PRN (00:53)
[2018-07-23] MEDS ORDERED: ALUMINUM/MAGNESIUM SUSP 30 ML UDC PO PRN (00:53)
[2018-07-23] MEDS ORDERED: ONDANSETRON INJ 2 MG/ML 2 ML VIAL IV PRN (00:53)
[2018-07-23] MEDS ORDERED: MoRPHine SULFATE 2 MG/ML CARP IV PRN (00:53)
[2018-07-23] MEDS ORDERED: POLYETHYLENE (MIRALAX) 17 GM PACK PO PRN (00:53)
[2018-07-23] MEDS ORDERED: MAGNESIUM HYDROXIDE SUSP 30 ML UDC PO PRN (00:53)
[2018-07-23] MEDS: CARVEDILOL 6.25 MG TAB PO SCH ×3 (01:45→20:40)
[2018-07-23] MEDS: SODIUM CHLORIDE 0.9% 1000ML 1,000 ML IV SCH ×4 (02:20→23:41)
[2018-07-23] MEDS: PIPERACILLIN/TAZOBACTAM 3.375 GM in DEXTROSE 5% 100 ML IV SCH ×3 (04:07→19:53)
--- NOTE | 2018-07-23 07:02 | Ultrasound Report ---
US abdomen limited HISTORY: 73 years-old Female RUQ pain, CT showing possible cholecystitis acute right upper quadrant abdominal pain COMPARISON: CTA 07/22/2018 TECHNIQUE: Multiple real-time sonographic images of the abdominal right upper quadrant were obtained assessing grayscale appearance and color flow FINDINGS: There is mild marginal nodularity of the liver suggestive of cirrhotic liver disease. Heterogeneous a ppearance of the hepatic parenchyma. No intrahepatic biliary ductal dilation. The previously describe d lesion of the caudate lobe is not definitively seen. Gallbladder distention with edematous wall thickening measuring up to 7 mm. Trace pericholecystic flu id. Nonmobile cholelithiasis with gallbladder sludge. Sonographic Bautista sign reported as negative. C ommon bile duct measures 6 mm. Mild atrophy of the imaged right kidney, 7.6 cm without hydronephrosis. IMPRESSION: 1. Cholelithiasis with gallbladder distention, edematous wall thickening and pericholecystic fluid is noted however the sonographic Bautista sign was reported as negative. Findings are suspicious for acut e cholecystitis in the appropriate clinical setting. Correlate clinically. 2. No biliary ductal dilation. 3. Cirrhotic liver disease. The above report was generated using voice recognition software. It may contain grammatical, syntax o r spelling errors. Electronically signed by: Randolph Lynn M.D. 07/23/2018 7:01 AM
[2018-07-23 07:04] LABS: Basophils # (auto) 0.02 K/uL (0-0.2); Basophils % (auto) 0.3 %; Eosinophils % (auto) 2.8 %; Hematocrit (blood only) 32.9 % (37-47); Hemoglobin 11.2 g/dL (12.0-16.0); Immature Granulocytes # (auto) 0.01 K/uL (0.00-0.02); Immature Granulocytes % (auto) 0.1 %; Lymphocytes # (auto) 1.94 K/uL (1.2-3.4); Lymphocytes % (auto) 27.4 %; Monocytes # (auto) 0.74 K/uL (0.11-0.59); Monocytes % (auto) 10.5 %; Neutrophils # (auto) 4.17 K/uL (1.4-6.5); Neutrophils % (auto) 58.9 %; Platelet Count 153 K/uL (130-400); RDW Coefficient of Variation 15.2 % (11.5-14.5); RDW Standard Deviation 53.6 fL (36.4-46.3); Red Blood Count 3.29 M/uL (4.2-5.4); White Blood Count 7.08 K/uL (4.8-10.8)
[2018-07-23 07:33] LABS: Albumin Level 2.9 gm/dl (3.4-5.0); BUN Creatinine Ratio 17.4 (10-20); Bilirubin Direct 0.4 mg/dl (0-0.2); Creatinine Clr Calc Pharmacy 43.4 ml/min; Est GFR (African American) 79.4; Est GFR (Non-African American) 68.5; Potassium 3.8 mmol/L (3.5-5.1)
[2018-07-23 07:37] LABS: Albumin Globulin Ratio 0.8 (0.9-2); Bilirubin,Total 1.1 mg/dl (0.2-1); Globulin 3.6 gm/dl (2.5-4.0); Total Protein 6.5 gm/dl (6.4-8.2)
[2018-07-23] MEDS: LOSARTAN POTASSIUM 50 MG TAB PO SCH (08:56)
[2018-07-23] MEDS: FLUOXETINE HCL 20 MG CAP PO SCH (08:56)
[2018-07-23 09:16] LABS: INR 1.1 (0.9-1.1); Partial Thromboplastin Time 27.6 Seconds (21.0-31.0); Prothrombin Time 11.3 Seconds (9.0-12.0)
--- NOTE | 2018-07-23 11:12 | Progress Note ---
Date of Service July 23, 2018 Assessment & Plan (1) Abdominal pain: Pt is a 73 yo female with history of a type b aortic dissection, cirrhosis, hemochromatosis, and reflux. She presents with sudden onset of epigastric pain radiating between her shoulder blades and chest as well as elevated LFTs. However her LFTs are chronically elevated. CT scan shows perihepatic ascites in addition to trace pericholecystic fluid, gallbladder wall thickening, and a few punctate stones. Certainly this is concerning for possible cholecystitis, but she also has other potentially confounding factors as well. Since admission her LFTs have trended downward, and WBC has normalized. Continues to have RUQ pain. U/S completed, and also concerning for acute cholecystitis. - Recommend Hospitalist admission - Obtain RUQ U/S to further assess for cholecystitis - Continue IV abx for potential cholecystitis vs other infectious etiology - Would appreciate surgical risk stratification/clearance in preparation for potential surgery - Continue to hold Plavix, so would need to wait until this has "worn off" prior to proceeding with surgery - Awaiting GI recommendation regarding severity of cirrhosis (in part to help with risk stratification for potential surgical intervention) and possible contributions of the cirrhosis and hemochromatosis on lab and imaging findings. Will discuss treatment plan with them. Pt may ultimately require transfer to a tertiary care center for further management, especially if she requires surgery to manage potential decompensation from cirrhosis - May need to consider consultation for endoleak if not currently being followed, though imaging states it is stable from prior images Abdominal location: unspecified location Qualified Code(s): R10.9 - Unspecified abdominal pain Subjective Pt continues to have RUQ abdominal pain. Denies nausea. WBC has improved. U/S completed. Physical Exam Constitutional: no acute distress Respiratory: normal respiratory effort Cardiovascular: Rate/Rhythm: regular rate Gastrointestinal (Abdomen): soft, nondistended, significant RUQ tenderness Results & Data Vital Signs (Past 12 Hours) Vital Signs Temp Pulse Pulse Resp BP BP Pulse Ox 07/23/18 07:21 36.8 C 69 16 161/83 H 93 07/23/18 00:45 36.8 C 71 18 146/58 H 91 07/23/18 00:38 71 18 146/82 H 99 07/23/18 00:00 73 16 125/81 94 Laboratory Results 07/23/18 07/23/18 07/23/18 Range/Units 08:47 06:48 06:48 WBC 7.08 (4.8-10.8) K/uL RBC 3.29 L (4.2-5.4) M/uL Hgb 11.2 L (12.0-16.0) g/dL Hct 32.9 L (37-47) % MCV 100.0 (80-100) fL MCH 34.0 (25-34) pg MCHC 34.0 (32-36) g/dL RDW Std Deviation 53.6 H (36.4-46.3) fL RDW Coeff of Conner 15.2 H (11.5-14.5) % Plt Count 153 (130-400) K/uL MPV 10.0 (7.4-10.4) fL Immature Gran % (Auto) 0.1 % Neut % (Auto) 58.9 % Lymph % (Auto) 27.4 % [place] % (Auto) 10.5 % Eos % (Auto) 2.8 % Baso % (Auto) 0.3 % Immature Gran # (Auto) 0.01 (0.00-0.02) K/uL Neut # (Auto) 4.17 (1.4-6.5) K/uL Lymph # (Auto) 1.94 (1.2-3.4) K/uL [place] # (Auto) 0.74 H (0.11-0.59) K/uL Eos # (Auto) 0.20 (0-0.5) K/uL Baso # (Auto) 0.02 (0-0.2) K/uL PT 11.3 (9.0-12.0) Seconds INR 1.1 (0.9-1.1) APTT 27.6 (21.0-31.0) Seconds PTT Ratio 1.0 Sodium 140 (136-145) mmol/L Potassium 3.8 (3.5-5.1) mmol/L Chloride 108 H (98-107) mmol/L Carbon Dioxide 26 (21-32) mmol/L Anion Gap 6.0 (3-11) BUN 15 (7-18) mg/dl Creatinine 0.84 (0.6-1.2) mg/dl Est Cr Clr Drug Dosing 43.4 ml/min Est GFR ( Amer) 79.4 Est GFR (Non-Af Amer) 68.5 BUN/Creatinine Ratio 17.4 (10-20) Glucose 84 (70-99) mg/dl Calcium 8.0 L (8.5-10.1) mg/dl Total Bilirubin 1.1 H (0.2-1) mg/dl Direct Bilirubin 0.4 H (0-0.2) mg/dl AST 42 H (15-37) U/L ALT 25 (12-78) U/L Alkaline Phosphatase 197 H (45-117) U/L Troponin I (0-0.045) ng/ml Total Protein 6.5 (6.4-8.2) gm/dl Albumin 2.9 L (3.4-5.0) gm/dl Globulin 3.6 (2.5-4.0) gm/dl Albumin/Globulin Ratio 0.8 L (0.9-2) 07/22/18 07/22/18 07/22/18 Range/Units 22:02 19:10 19:10 WBC 13.47 H (4.8-10.8) K/uL RBC 3.78 L (4.2-5.4) M/uL Hgb 13.1 (12.0-16.0) g/dL Hct 37.9 (37-47) % MCV 100.3 H (80-100) fL MCH 34.7 H (25-34) pg MCHC 34.6 (32-36) g/dL RDW Std Deviation 53.3 H (36.4-46.3) fL RDW Coeff of Conner 14.9 H (11.5-14.5) % Plt Count 161 (130-400) K/uL MPV 10.0 (7.4-10.4) fL Immature Gran % (Auto) 0.2 % Neut % (Auto) 82.6 % Lymph % (Auto) 8.8 % [place] % (Auto) 6.9 % Eos % (Auto) 1.2 % Baso % (Auto) 0.3 % Immature Gran # (Auto) 0.03 H (0.00-0.02) K/uL Neut # (Auto) 11.13 H (1.4-6.5) K/uL Lymph # (Auto) 1.18 L (1.2-3.4) K/uL [place] # (Auto) 0.93 H (0.11-0.59) K/uL Eos # (Auto) 0.16 (0-0.5) K/uL Baso # (Auto) 0.04 (0-0.2) K/uL PT (9.0-12.0) Seconds INR (0.9-1.1) APTT (21.0-31.0) Seconds PTT Ratio Sodium 143 (136-145) mmol/L Potassium 4.1 (3.5-5.1) mmol/L Chloride 109 H (98-107) mmol/L Carbon Dioxide 27 (21-32) mmol/L Anion Gap 7.0 (3-11) BUN 16 (7-18) mg/dl Creatinine 0.79 (0.6-1.2) mg/dl Est Cr Clr Drug Dosing 53.9 ml/min Est GFR ( Amer) 85.5 Est GFR (Non-Af Amer) 73.7 BUN/Creatinine Ratio 20.4 H (10-20) Glucose 111 H (70-99) mg/dl Calcium 9.2 (8.5-10.1) mg/dl Total Bilirubin 1.4 H (0.2-1) mg/dl Direct Bilirubin 0.7 H (0-0.2) mg/dl AST 57 H (15-37) U/L ALT 31 (12-78) U/L Alkaline Phosphatase 226 H (45-117) U/L Troponin I < 0.015 (0-0.045) ng/ml Total Protein 7.6 (6.4-8.2) gm/dl Albumin 3.4 (3.4-5.0) gm/dl Globulin 4.2 H (2.5-4.0) gm/dl Albumin/Globulin Ratio 0.8 L (0.9-2) Diagnostic Findings RUQ U/S: HISTORY: 73 years-old Female RUQ pain, CT showing possible cholecystitis acute right upper quadrant abdominal pain COMPARISON: CTA 07/22/2018 TECHNIQUE: Multiple real-time sonographic images of the abdominal right upper qu adrant were obtained assessing grayscale appearance and color flow FINDINGS: There is mild marginal nodularity of the liver suggestive of cirrhotic liver disease. Heterogeneous appearance of the hepatic parenchyma. No intrahepatic biliary ductal dilation. The previously described lesion of the caudate lobe is not definitively seen. Gallbladder distention with edematous wall thickening measuring up to 7 mm. Trace pericholecystic fluid. Nonmobile cholelithiasis with gallbladder sludge. Sonographic Bautista sign reported as negative. Common bile duct measures 6 mm. Mild atrophy of the imaged right kidney, 7.6 cm without hydronephrosis. IMPRESSION: 1. Cholelithiasis with gallbladder distention, edematous wall thickening and pericholecystic fluid is noted however the sonographic Bautista sign was reported as negative. Findings are suspicious for acute cholecystitis in the appropriate clinical setting. Correlate clinically. 2. No biliary ductal dilation. 3. Cirrhotic liver disease.
[2018-07-23] MEDS: ACETAMINOPHEN 325 MG TAB PO PRN ×2 (13:31→19:58)
--- NOTE | 2018-07-23 13:55 | Family Medicine Progress Note ---
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 Cholecystitis/Abnormal LFTs/Abdominal pain -Gen surg consulted, -RUQ uss ordered -Holding plavix for possible intervention. Surgery feels patient may need referral to tertiary care for intervention. -Morhpine 2mg q4h prn for pain -NPO -IVF NSS 125 -Zosyn started -Monitor labs Cirrhosis 2/2 hereditary hemochromatosis -Pt has some degree of chronically elevated LFTs -GI consult placed for periop decompensation risk assessment in setting of cirrhosis and to assess other source of elevation of LFT. Aortic Dissection -s/p Stent placement in [place] -Small stable endoleak noted on CTA -Holding plavix as above HTN -Continue losartan and carvedilol HLD -Cont pravastatin Depression -Cont fluoxetine Code: Full Dispo: admit to med/surg DVTP: SCDs *Contact info: Kylah Moeller, daughter/POA: [phone] or Sayra, daughter: [phone] Subjective Sleepy this morning. Still having pain in right upper abdomen. No fever. Denies chest pain, shortness of breath. Physical Exam Constitutional: WD/WN, vitals as above Respiratory: normal respiratory effort, lungs clear to auscultation Cardiovascular: Rate/Rhythm: regular rhythm Heart Sounds: + murmur Gastrointestinal (Abdomen): Inspection/Auscultation: abdomen normal to inspection and normal bowel sounds Percussion/Palpation: abdomen soft Tenderness ++ RUQ Psychiatric: A+Ox3, euthymic affect Results & Data Vital Signs (Past 12 Hours) Vital Signs Temp Pulse Resp BP Pulse Ox 07/23/18 11:43 69 16 158/78 H 93 07/23/18 07:21 36.8 C 69 16 161/83 H 93
--- NOTE | 2018-07-23 15:20 | Gastrointestinal Consultation ---
Date of Consultation July 23, 2018 Assessment & Plan (1) Cholecystitis: Recommend cholecystectomy. The patient has compensated liver diseae but is at moderate risk for surgery. I discussed with family it is possible she could decompenate with surgery. Noted concern by surgeon regarding cirrhosis and perhaps tertiary center needed. Discussed with DR Love that I do not know whether she will have liver decompensation or not so perhaps tertiary center better in case that happens. Discussed with patient and family also. cirrhosis--secondary to hemochromatosiis elevated LFTS---normal size bile duct and do not feel at this time ERCP is needed as they are improving History of Present Illness Reason for Consultation: cirrhosis, cholecystitisi Requesting Physician: DR Yuli Foster Attending Physician: Kristin Love MD History of Present Illness CC abd pain HPI Daughter with patient for H and P. Pt with acute onset of abd pain RUQ presented to ER. CT and u/s c/w cholecystisis. Gallstones noted. LFTS somewhat elevated over baseline but better today and normal size duct. 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 Current INR normal and EGD 2016 no varices, albumin ok. Clinically her cirrhosis is compensated. She was experiencing nausea but no vomiting. Allergies Allergy/AdvReac Type Severity Reaction Status Date / Time pollen extracts Allergy Intermediate Swelling Unverified 07/22/18 23:10 of throat Hxvadxj-Cax-Hpi Reductase AdvReac Severe Blistering Unverified 07/22/18 23:03 Inhibitor of Mouth codeine AdvReac Intermediate vomiting Verified 07/23/18 00:36 Home Medications Home Medications Medication Instructions Recorded Confirmed Type acetaminophen [Tylenol Extra 500 mg PO UD PRN 07/22/18 07/22/18 History Strength] carvedilol 6.25 mg PO BID 07/22/18 07/22/18 History clopidogrel 75 mg PO DAILY 07/22/18 07/22/18 History fluoxetine 20 mg PO QAM 07/22/18 07/22/18 History losartan 50 mg PO QAM 07/22/18 07/22/18 History ranitidine HCl 150 mg PO BID 07/22/18 07/22/18 History Patient History Medical History 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 Status post TEVAR 09/2017 from the mid thoracic aorta to the celiac artery. Also a 5 x 17-mm bare-metal stent placed in the left superior renal artery and an 8 x 37 bare-metal stent in the left iliac artery. Hypertension (Acute) Surgical History History of abdominal aortic aneurysm (AAA) repair September of 2017 Aneurysm (Acute) Family History Other Family history non-contributory Social History Preferred Language: [place]an Communication Ability: Effective Communication Ability Comment: Pt [place] & has glasses Aeronautical Drafter Required: No Beliefs That Will Affect Care: None Current Living Situation: Spouse Current Living Situation Comment: at home with Other Information That Helps Us Care for You: No Feels Safe at Home: Yes Safety Concerns: Feels Safe At This Time Smoking Status: Former smoker Hx Alcohol Use: No Hx Substance Use: No Review of Systems Review of Systems: All systems reviewed & are unremarkable except as noted in HPI & below Physical Exam Constitutional: WD/WN, vitals as above Eyes: PERRL, conjunctivae normal, anicteric sclerae ENMT: external ear and nose normal, oropharynx normal Neck: normal visual inspection and trachea midline Respiratory: normal respiratory effort, lungs clear to auscultation Cardiovascular: RRR, no murmur, no edema Gastrointestinal (Abdomen): pos bs, soft, no guarding nor rebound, subjective RUQ pain Psychiatric: A+Ox3, euthymic affect Results & Data Vital Signs (Past 12 Hours) Vital Signs Temp Pulse Resp BP Pulse Ox 07/23/18 11:43 69 16 158/78 H 93 07/23/18 07:21 36.8 C 69 16 161/83 H 93
--- NOTE | 2018-07-23 19:03 | Nuclear Medicine Report ---
NM hepatobiliary CLINICAL HISTORY: Abdominal pain. Assess for acute cholecystitis. COMPARISON STUDY: Right upper quadrant ultrasound July 23, 2018. CTA of the abdomen and pelvis July. TECHNIQUE: 5.6 mCi of technetium 99m Choletec was injected IV at 5:45 PM on July 23, 2018. Immediately following injection, imaging of the abdomen was performed in the anterior projection carried out for 60 minutes. FINDINGS: Hepatic uptake of radiotracer is prompt and homogeneous. Activity is identified within the gallbladder and common bile duct at 15 minutes. Small bowel activity is noted at 15 minutes as well. IMPRESSION: No evidence for acute cholecystitis. Electronically signed by: Igor Rogers M.D. 07/23/2018 7:01 PM
--- NOTE | 2018-07-24 01:47 | Emergency Department Note ---
Entered by Ang Glover acting as a scribe for Constance Be DO History of Present Illness General Chief complaint: Abdominal Pain Time Seen by Provider: 07/22/18 18:22 Source: patient History of Present Illness Onset (ago): hour(s) (16:00) Location: abdomen Radiation: other (chest, right shoulder) Pain Consistency: + other (persistent) Quality: + other (upper abdominal pain) Relieved By: + medication (morphine) The patient is a 73 year old female who presents to the Emergency Room via ambulance with complaints of persistent upper abdominal pain beginning at 16:00 today. The patient states that her pain radiates toward her right shoulder and superiorly into the central chest. She points to pain in her epigastric and right upper quadrant area. The patient was given 4mg Zofran and 6mg morphine prior to arrival. She states that her pain is currently improved after being given the morphine, but it is still present. She has a history of AAA repair in September 2017. She also states that she has a history of hemochromatosis and follows GI. She denies any change in bowel movements or difficulty urinating. Patient was seen initially by Dr. Lyn, family practice resident. She came to me immediately after her evaluation with concerns given her history as well as her presentation here. Home Medications Home Medications Medication Instructions Recorded Confirmed Type acetaminophen [Tylenol Extra 500 mg PO UD PRN 07/22/18 07/22/18 History Strength] carvedilol 6.25 mg PO BID 07/22/18 07/22/18 History clopidogrel 75 mg PO DAILY 07/22/18 07/22/18 History fluoxetine 20 mg PO QAM 07/22/18 07/22/18 History losartan 50 mg PO QAM 07/22/18 07/22/18 History ranitidine HCl 150 mg PO BID 07/22/18 07/22/18 History Allergies Allergy/AdvReac Type Severity Reaction Status Date / Time pollen extracts Allergy Intermediate Swelling Unverified 07/22/18 23:10 of throat Qwfjtnd-Yji-Wdy Reductase AdvReac Severe Blistering Unverified 07/22/18 23:03 Inhibitor of Mouth codeine AdvReac Intermediate vomiting Verified 07/23/18 00:36 Past Med/Surg History Medical History 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 Status post TEVAR 09/2017 from the mid thoracic aorta to the celiac artery. Also a 5 x 17-mm bare-metal stent placed in the left superior renal artery and an 8 x 37 bare-metal stent in the left iliac artery. Hypertension (Acute) Surgical History History of abdominal aortic aneurysm (AAA) repair September of 2017 Aneurysm (Acute) Family History Other Family history non-contributory Social History Preferred Language: Filipino Communication Ability: Effective Communication Ability Comment: Pt [place] & has glasses Pipe Covering Molder Required: No Beliefs That Will Affect Care: None Current Living Situation: Spouse Current Living Situation Comment: at home with Other Information That Helps Us Care for You: No Feels Safe at Home: Yes Safety Concerns: Feels Safe At This Time Smoking Status: Former smoker Hx Alcohol Use: No Hx Substance Use: No Review of Systems See HPI for pertinent positives & negatives. and A total of 10 systems reviewed and were otherwise negative Physical Exam Vital Signs Vital Signs - 24 hr 07/22/18 18:29 07/22/18 19:23 07/22/18 20:10 Temperature 98.1 F Temperature Source Oral Sepsis Recent Fever Within 48 Hours No Sepsis New/Unexplained Change in Mental Status No Sepsis Action Taken by Nursing No Action Required Pulse Rate 76 Pulse Rate [Right Finger] 73 75 Pulse Rhythm [Right Finger] Regular Regular Pulse Strength [Right Finger] Normal Normal Respiratory Rate 18 19 16 Respiratory Effort / Characteristics Non-Labored Spontaneous Non-Labored Non-Labored Respiratory Depth Normal Normal Normal Respiratory Pattern Regular Regular Regular Blood Pressure 182/85 H Blood Pressure [Right Arm] 188/93 H 160/86 H Blood Pressure Mean 117 Blood Pressure Mean [Right Arm] 124 110 Blood Pressure Position Sitting Blood Pressure Position [Right Arm] Lying Lying Pulse Oximetry 93 95 94 Oxygen Delivery Method Room Air Room Air Room Air GENERAL: alert, well appearing, well nourished, no distress, non-toxic EYE EXAM: normal conjunctiva, PERRLA, EOMI OROPHARYNX: no exudate, no erythema, lips, buccal mucosa, and tongue normal and mucous membranes are moist NECK: supple, no nuchal rigidity, no adenopathy, non-tender LUNGS: Clear to auscultation. Normal chest wall mechanics, no w/r/r HEART: no murmurs, S1 normal and S2 normal ABDOMEN: abdomen soft, epigastric and RUQ tenderness to palpation, splints, normo-active bowel sounds, no masses, no rebound or guarding. BACK: Back is symmetrical on inspection and there is no deformity, no midline tenderness, no CVA tenderness. SKIN: no rashes and no bruising UPPER EXTREMITIES: upper extremities are grossly normal. No pain with palpation of the right shoulder, no obvious deformity or abnormality. Normal distal pulses bilateral upper extremities, full range of motion bilateral upper extremities. LOWER EXTREMITIES: No pitting edema. Normal pulses bilaterally, full range of motion bilaterally. NEURO EXAM: Normal sensorium, cranial nerves II-XII grossly intact, normal speech, no gross weakness of arms, no gross weakness of legs. Gross sensation intact. Course 1823: The patient was evaluated in room B11A by Dr. Nabila Lyn Resident. A complete history and physical examination were performed. 1845: I personally evaluated the patient, and a history and physical examination were obtained. Patient denies any recent change in medication or change in diet. Daughter at bedside states she was concerned of some of the symptoms are similar to when she originally presented with a dissection. Patient states she has been compliant with her medications as well as follow-up. She denies any recent sick contacts. She states she does take a daily stomach medication. No known history of ulcers. Patient was noted to be hypertensive here. 2044: CT is reviewed and I discussed this with the resident. She will contact surgery to discuss likely evolving acute cholecystitis. Given patient's extensive medical history, they may also need involvement of the hospitalist service. 2101: Dr. Lyn spoke with Dr. Laly Robin recommended GI be consulted, and she agrees that the patient should be hospitalized. She recommended an ultrasound of the RUQ. She requested patient be admitted to the hospitalist service. 2109: Dr. Huffman [facility] Hospitalist was consulted. The patient will be reevaluated for hospitalization. Administered Medications Acetaminophen (Tylenol) 650 mg PO Q4H PRN PRN Reason: pain/fever Stop: 08/22/18 00:52 Last Admin: 07/23/18 19:58 Dose: 650 mg Documented by: [id number] Admin: 07/23/18 13:31 Dose: 650 mg Documented by: [id number] Carvedilol (Coreg) 6.25 mg PO BID [facility] Stop: 08/21/18 23:29 Last Admin: 07/23/18 20:40 Dose: 6.25 mg Documented by: [id number] Admin: 07/23/18 08:56 Dose: 6.25 mg Documented by: [id number] Admin: 07/23/18 01:45 Dose: Not Given Documented by: [id number] Fluoxetine HCl (Prozac) 20 mg PO QAM [facility] Stop: 08/22/18 08:59 Last Admin: 07/23/18 08:56 Dose: 20 mg Documented by: [id number] Sodium Chloride (Nss 1000ml) 1,000 mls @ 125 mls/hr IV .Q8H [facility] Stop: 08/22/18 01:14 Last Admin: 07/23/18 23:41 Dose: 125 mls/hr Documented by: [id number] Infusion: 07/23/18 23:41 Dose: 125 mls/hr Documented by: [id number] Admin: 07/23/18 17:10 Dose: 125 mls/hr Documented by: [id number] Infusion: 07/23/18 16:58 Dose: 125 mls/hr Documented by: [id number] Admin: 07/23/18 08:58 Dose: 125 mls/hr Documented by: [id number] Infusion: 07/23/18 08:58 Dose: 125 mls/hr Documented by: [id number] Admin: 07/23/18 02:20 Dose: 125 mls/hr Documented by: [id number] Piperacillin Sod/Tazobactam (Sod 3.375 gm/ Dextrose) 115 mls @ 28.75 mls/hr IV Q8H [facility]; Protocol Stop: 08/02/18 03:59 Last Infusion: 07/23/18 23:37 Dose: 0 mls/hr Documented by: [id number] Admin: 07/23/18 19:53 Dose: 28.8 mls/hr Documented by: [id number] Infusion: 07/23/18 14:58 Dose: 0 mls/hr Documented by: [id number] Admin: 07/23/18 11:32 Dose: 28.8 mls/hr Documented by: [id number] Infusion: 07/23/18 07:35 Dose: 0 mls/hr Documented by: [id number] Admin: 07/23/18 04:07 Dose: 28.8 mls/hr Documented by: [id number] Losartan Potassium (Cozaar) 50 mg PO QAM [facility] Stop: 08/22/18 08:59 Last Admin: 07/23/18 08:56 Dose: 50 mg Documented by: [id number] Discontinued Medications Famotidine (Pepcid 20mg Iv Push) 20 mg IV ONE STA Stop: 07/22/18 18:53 Last Admin: 07/22/18 19:31 Dose: 20 mg Documented by: [id number] Sodium Chloride (Nss 1000ml) 1,000 mls @ 125 mls/hr IV .Q8H [facility] Stop: 08/21/18 18:59 Last Infusion: 07/23/18 01:57 Dose: 0 mls/hr Documented by: [id number] Admin: 07/22/18 20:33 Dose: 125 mls/hr Documented by: [id number] Piperacillin Sod/Tazobactam Sod (Zosyn) 3.375 gm in 115 mls @ 230 mls/hr IV NOW STA Stop: 07/22/18 21:42 Last Infusion: 07/23/18 01:04 Dose: 0 mls/hr Documented by: [id number] Admin: 07/22/18 22:55 Dose: 230 mls/hr Documented by: [id number] Ioversol (Optiray 320 125ml) 119 ml IV ONCE PRN PRN Reason: Interaction Checking Stop: 07/26/18 20:26 Last Admin: 07/22/18 20:27 Dose: 119 ml Documented by: [id number] Morphine Sulfate (Morphine Sulfate) 2 mg IV NOW STA Stop: 07/22/18 18:53 Last Admin: 07/22/18 19:31 Dose: 2 mg Documented by: [id number] Morphine Sulfate (Morphine Sulfate) 2 mg IV NOW STA Stop: 07/22/18 23:57 Last Admin: 07/23/18 00:36 Dose: 2 mg Documented by: [id number] Morphine Sulfate (Morphine Sulfate) Confirm Administered Dose 2 mg .ROUTE .[employer]- MED ONE Stop: 07/23/18 00:34 Last Admin: 07/23/18 01:45 Dose: Not Given Documented by: [id number] Medical Decision Making Differential Diagnosis Differential diagnoses includes but is not limited to gastritis, peptic ulcer disease, GERD, gallbladder disease, pancreatitis, small bowel obstruction, acute coronary syndrome, pericarditis, ischemic bowel, irritable bowel disease, irritable bowel syndrome, appendicitis, diverticulitis, malignancy, hernia, urinary tract infection, torsion, perforation, trauma, infectious. Medical Records Attestation: I reviewed the patient's medical records. Home Medications Current Medication List: was personally reviewed by me Laboratory Data Attestation: I reviewed the patient's lab results. Result diagrams: 07/23/18 06:48 07/23/18 06:48 Lab Results 07/22/18 07/22/18 07/22/18 Range/Units 19:10 19:10 22:02 WBC 13.47 H (4.8-10.8) K/uL RBC 3.78 L (4.2-5.4) M/uL Hgb 13.1 (12.0-16.0) g/dL Hct 37.9 (37-47) % MCV 100.3 H (80-100) fL MCH 34.7 H (25-34) pg MCHC 34.6 (32-36) g/dL RDW Std Deviation 53.3 H (36.4-46.3) fL RDW Coeff of Conner 14.9 H (11.5-14.5) % Plt Count 161 (130-400) K/uL MPV 10.0 (7.4-10.4) fL Immature Gran % (Auto) 0.2 % Neut % (Auto) 82.6 % Lymph % (Auto) 8.8 % Mclennan % (Auto) 6.9 % Eos % (Auto) 1.2 % Baso % (Auto) 0.3 % Immature Gran # (Auto) 0.03 H (0.00-0.02) K/uL Neut # (Auto) 11.13 H (1.4-6.5) K/uL Lymph # (Auto) 1.18 L (1.2-3.4) K/uL Mclennan # (Auto) 0.93 H (0.11-0.59) K/uL Eos # (Auto) 0.16 (0-0.5) K/uL Baso # (Auto) 0.04 (0-0.2) K/uL Sodium 143 (136-145) mmol/L Potassium 4.1 (3.5-5.1) mmol/L Chloride 109 H (98-107) mmol/L Carbon Dioxide 27 (21-32) mmol/L Anion Gap 7.0 (3-11) BUN 16 (7-18) mg/dl Creatinine 0.79 (0.6-1.2) mg/dl Est Cr Clr Drug Dosing 53.9 ml/min Est GFR ( Amer) 85.5 Est GFR (Non-Af Amer) 73.7 BUN/Creatinine Ratio 20.4 H (10-20) Glucose 111 H (70-99) mg/dl Calcium 9.2 (8.5-10.1) mg/dl Total Bilirubin 1.4 H (0.2-1) mg/dl Direct Bilirubin 0.7 H (0-0.2) mg/dl AST 57 H (15-37) U/L ALT 31 (12-78) U/L Alkaline Phosphatase 226 H (45-117) U/L Troponin I < 0.015 (0-0.045) ng/ml Total Protein 7.6 (6.4-8.2) gm/dl Albumin 3.4 (3.4-5.0) gm/dl Globulin 4.2 H (2.5-4.0) gm/dl Albumin/Globulin Ratio 0.8 L (0.9-2) Imaging Data Radiologist's Impression: Radiology results as stated below per my review and the radiologist's interpretation: CHEST, ABDOMEN, PELVIS CTA for AORTIC DISSECTION CT DOSE: 900.68 mGy.cm HISTORY: hx type B dissection, htn, right-sided chest pain. Lower back pain. TECHNIQUE: Multiaxial CT images of the chest were performed both before and after the intravenous administration of contrast to evaluate the aorta. Maximal intensity projection images were also obtained. A dose lowering technique was utilized adhering to the principles of ALARA. COMPARISON STUDY: Chest abdomen and pelvis CTA 04/03/2018. Abdomen and pelvis CT 09/29/2017. FINDINGS: Noncontrast imaging through the chest shows no evidence for an intr amural hematoma within the thoracic aorta. Focal severe stenosis at the proximal right subclavian artery, unchanged. There is also moderate stenosis at the takeoff of the left subclavian artery. There is a stent graft within the descending thoracic aorta. No evidence for an aortic dissection within the thoracic aorta. 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 This on image 175 there is a small focus of contrast within the posterior aneurysm sac secondary to a small lumbar radicle vessel. Therefore, this is consistent with a type II endoleak. This remains unchanged. No evidence for pulmonary embolus. No fractures within the visualized osseous structures of the chest. No mediastinal hematoma. No mediastinal or hilar lymphadenopathy. The heart is normal in size. Normal esophagus. No pleural or pericardial effusions. No pneumothorax. The central airways are patent. Small patchy airspace opacity within the right lung base posteriorly. This favors atelectasis. Multiple additional linear densities within the lung bases also favor atelectasis are scarring. Otherwise, no focal lung consolidations to suggest pneumonia. No pneumoperitoneum. No pneumatosis. No fractures within the abdomen or pelvis. Subtle nodular contour to the liver suggestive of cirrhosis. The spleen, adrenal glands, pancreas, and right kidney are unremarkable. No hydronephrosis. 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 This remains unchanged. No retroperitoneal lymphadenopathy. Trace perihepatic ascites. There is also small amount of pericholecystic fluid and gallbladder wall thickening. There are few punctate gallstones. Mild hyperemia within the gallbladder wall. The gallbladder is also mildly distended. The bladder, uterus, bilateral adnexa are unremarkable. No bowel wall thickening or obstruction. Moderate calcified plaque within the abdominal aorta and iliac arteries. There is a left renal artery and left common iliac artery stent. These are patent. The bilateral common and external iliac arteries are widely patent. The celiac artery is patent. There is focal high-grade stenosis at the origin of the superior mesenteric artery due to the calcified plaque. There is also moderate to severe stenosis at the origin of the inferior mesenteric artery. This remains unchanged. Small focal chronic dissection of the distal abdominal aorta, unchanged. This is immediately inferior to the takeoff of the inferior mesenteric artery and extends to the bifurcation. IMPRESSION: 1. No evidence for a thoracic aortic dissection. 2. Prior stent graft repair within the descending thoracic aorta. There is mild aneurysmal dilatation of the descending thoracic aorta which measures up to 3.3 cm, unchanged. 3. There is evidence for a tiny type II endoleak within the descending thoracic aorta. This is also stable. 4. Trace perihepatic ascites. There is also small amount of pericholecystic fluid and gallbladder wall thickening. There are few punctate gallstones. Mild hyperemia within the gallbladder wall. The gallbladder is also mildly distended. These findings could be due to the patient's cirrhosis or possibly a developing acute cholecystitis. Clinical correlation recommended. 5. Stable small focal chronic dissection within the distal dominant aorta. 6. Additional findings as described above. Electronically signed by: Guero Cota M.D. 07/22/2018 8:49 PM ECG Data Attestation: I personally reviewed and interpreted this ECG as follows: Indication: abdominal pain Rate (beats per minute): 76 Rhythm: sinus rhythm Findings: + other (normal axis, prolonged QTc) and + RBBB; no ST depression and no ST elevation Blood Pressure Blood Pressure Findings: Elevated blood pressure Blood Pressure Disposition: further management by hospitalist FLIP [place] Patient here initially uncomfortable appearing and noted to be hypertensive however otherwise hemodynamically stable. Patient with abdominal pain suggestive of possible biliary colic or acute cholecystitis however given extensive past medical history including prior dissection with similar presentation, patient sent for CT angiography of chest abdomen and pelvis. Patient's pain was improved with morphine and she was given a dose of antiemetic. CTs were reassuring and showed only chronic changes in the aorta however suggestion on CT for evolving acute cholecystitis. Patient had initially been seen and evaluated by the resident however I saw the patient very promptly after her initial evaluation due to her concern. We did discuss all the results and she contacted general surgery following the CT results to discuss the case. Patient was noted to have a leukocytosis here and mildly elevated LFTs, however no evidence of sepsis or ascending cholangitis. Patient was afebrile throughout. Given her complex past medical history, general surgery asked that the hospitalist admit the patient primarily and that the patient also have a GI evaluation prior to surgical intervention given the reported history of cirrhosis. The resident did update the patient and daughter on all results and they were in agreement with plan. Patient continued to be improved here and pain was controlled with morphine. Patient was given a dose of IV antibiotics as a precaution. Impression & Plan Abdominal pain, Hypertension, Cholecystitis, Abnormal LFTs Discharge Plan Visit Data *Final* Discharge Date/Time: 07/23/18 00:38 Chief Complaint: Abdominal Pain ED Provider: Constance Be ED Midlevel Provider: Nabila Lyn Discharge Problem: Abdominal pain, Hypertension, Cholecystitis, Abnormal LFTs Patient Disposition: Admitted As Inpatient Discharge Instructions Interventions: ED Discharge Assessment Last Done: 07/23/18 00:38 Discharge Problem: Abdominal pain Qualifiers: Abdominal location: unspecified location Qualified Code(s): R10.9 - Unspecified abdominal pain Hypertension Qualifiers: Hypertension type: unspecified Qualified Code(s): I10 - Essential (primary) hypertension The scribe's documentation has been prepared under my direction and personally reviewed by me in its entirety. I confirm that the note above accurately reflects all work, treatment, procedures, and medical decision making performed by me.
[2018-07-24] MEDS: ACETAMINOPHEN 325 MG TAB PO PRN ×3 (03:29→13:52)
[2018-07-24] MEDS: PIPERACILLIN/TAZOBACTAM 3.375 GM in DEXTROSE 5% 100 ML IV SCH ×2 (04:55→11:54)
[2018-07-24 07:04] LABS: Basophils # (auto) 0.02 K/uL (0-0.2); Basophils % (auto) 0.5 %; Eosinophils # (auto) 0.23 K/uL (0-0.5); Eosinophils % (auto) 5.5 %; Hematocrit (blood only) 32.2 % (37-47); Hemoglobin 10.9 g/dL (12.0-16.0); Immature Granulocytes # (auto) 0.01 K/uL (0.00-0.02); Immature Granulocytes % (auto) 0.2 %; Lymphocytes # (auto) 1.34 K/uL (1.2-3.4); Mean Corpuscular Hgb Conc 33.9 g/dL (32-36); Mean Corpuscular Volume 99.7 fL (80-100); Mean Platelet Volume 9.7 fL (7.4-10.4); Monocytes # (auto) 0.52 K/uL (0.11-0.59); Monocytes % (auto) 12.4 %; Neutrophils # (auto) 2.07 K/uL (1.4-6.5); Neutrophils % (auto) 49.4 %; Platelet Count 132 K/uL (130-400); RDW Coefficient of Variation 14.7 % (11.5-14.5); RDW Standard Deviation 52.2 fL (36.4-46.3); Red Blood Count 3.23 M/uL (4.2-5.4); White Blood Count 4.19 K/uL (4.8-10.8)
[2018-07-24 07:41] LABS: Albumin Level 2.8 gm/dl (3.4-5.0); BUN Creatinine Ratio 13.7 (10-20); Calcium 7.6 mg/dl (8.5-10.1); Creatinine Clr Calc Pharmacy 52.8 ml/min; Est GFR (African American) 99.4; Est GFR (Non-African American) 85.8; Potassium 3.8 mmol/L (3.5-5.1)
[2018-07-24 07:44] LABS: Albumin Globulin Ratio 0.8 (0.9-2); Bilirubin,Total 1.3 mg/dl (0.2-1); Globulin 3.5 gm/dl (2.5-4.0); Total Protein 6.3 gm/dl (6.4-8.2)
[2018-07-24] MEDS: CARVEDILOL 6.25 MG TAB PO SCH (08:24)
[2018-07-24] MEDS: FLUOXETINE HCL 20 MG CAP PO SCH (08:24)
[2018-07-24] MEDS: SODIUM CHLORIDE 0.9% 1000ML 1,000 ML IV SCH (08:24)
[2018-07-24] MEDS: LOSARTAN POTASSIUM 50 MG TAB PO SCH (08:24)
--- NOTE | 2018-07-24 15:44 | Gastroenterology Progress Note ---
Date of Service July 24, 2018 Assessment & Plan (1) Cholecystitis: The HIDA scan is negative and per my discussion with DR Love surgery does not feel needs GB removed. Since no pain now and tolerating solid diet and has increase risk of GB surgery with cirrhosis then reasonable to monitor as outpt. gallstones--as above. cirrhosis--secondary to hemochromatosiis elevated LFTS---normal size bile duct and do not feel at this time ERCP is needed as they are overall stable Will sign off. Have patient f/u with DR Palma as outpt for care of cirrhosis. Subjective cc f/u RUQ pain HPI HIDA scan neg. No abd pain at present. Tolerating solid food. Review of Systems Respiratory: no dyspnea Cardiovascular: no chest pain Physical Exam Constitutional: WD/WN, vitals as above Respiratory: normal respiratory effort, lungs clear to auscultation Cardiovascular: RRR, no murmur, no edema Gastrointestinal (Abdomen): normal bowel sounds, soft, nontender, no hepatosplenomegaly Psychiatric: A+Ox3, euthymic affect Results & Data Vital Signs (Past 12 Hours) Vital Signs Temp Pulse Pulse Resp BP Pulse Ox 07/24/18 15:29 36.7 C 59 L 16 180/65 H 94 07/24/18 12:25 192/85 H 07/24/18 07:48 36.7 C 66 16 178/74 H 95
--- NOTE | 2018-07-24 17:07 | Discharge Summary ---
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 This was associated with some nausea but no vomiting. Patient felt it was some reflux but did not alleviate with her antacid, and considering her history of dissection, came to the ER. In the ER, labs revealed mildly elevated WBC of 13.5, normal BMP, LFTs showing Tbili 1.4, D bili .7, AST 57, ALT 31, Alk phos 226. She has chronic elevation of LFTs in setting of liver pathology but compared to levels drawn in Feb 2018, today's levels are elevated. She required morphine for pain. A CT angio was performed which revealed possible cholecystitis, trace pericholecystic fluid, gallbaldder wall thickening, perihepatic ascites, punctate stones, small stable endoleak of descending aorta. General surgery was consulted who recommended RUQ uss, IV abx, GI consult, holding plavix, and will assess in AM for further evaluation. Principal Diagnosis Epigastric/RUQ pain possible acute cholecystitis Discharge Exam Constitutional WD/WN, vitals as above Respiratory normal respiratory effort, lungs clear to auscultation Cardiovascular Rate/Rhythm: regular rhythm Heart Sounds: + murmur Gastrointestinal (Abdomen) normal bowel sounds, soft, nontender, no hepatosplenomegaly Psychiatric A+Ox3, euthymic affect Discharge Data Allergies Allergy/AdvReac Type Severity Reaction Status Date / Time pollen extracts Allergy Intermediate Swelling Unverified 07/22/18 23:10 of throat Ofirjeo-Hue-Uff Reductase AdvReac Severe Blistering Unverified 07/22/18 23:03 Inhibitor of Mouth codeine AdvReac Intermediate vomiting Verified 07/23/18 00:36 Consultations 07/22/18 21:06 Consult Hospitalist Stat 07/23/18 00:53 Consult Gastroenterology Routine Consult General Surgery Routine Ordered Studies 07/22/18 18:42 CT angio abd pelvis wo/w con Stat 07/22/18 18:52 CT angio chest dissec wo/w con Stat 07/23/18 00:53 US abdomen limited Routine Hospital Course (1) Abdominal pain: (2) Cholecystitis: Pt is a 73 yo female with history of a type b aortic dissection, cirrhosis, hemochromatosis, and reflux. She presented with sudden onset of epigastric pain radiating between her shoulder blades and chest as well as elevated LFTs. Epigastric/RUQ pain with elevated LFT -CT scan shows perihepatic ascites in addition to trace pericholecystic fluid, gallbladder wall thickening, and a few punctate stones. -Was started on IVF and IV abx. Kept NPO -Surgery consulted for possible cholecystitis. Underwent Ultrasound which was also concerning of cholecystitis. Since her WBC normalized and LFT improved - surgery ordered HIDA scan was negative for acute cholecystitis. - Despite (-) HIDA surgery recommended to complete a course of antibiotics and to consider other causes of of her pain. -Diet was advanced and she tolerated well. Discharge home on cipro/flagyl for 7 days. Cirrhosis 2/2 hereditary hemochromatosis -Stable. -Pt has some degree of chronically elevated LFTs from Cirrhosis. Aortic Dissection -s/p Stent placement in [place] -Small stable endoleak noted on CTA -Holding plavix as above HTN -Continued losartan and carvedilol HLD -Continued pravastatin Depression -Continued fluoxetine (3) Hypertension: (4) Cirrhosis of liver: (5) Hemochromatosis: Total Time Total Time Spent Total Time Spent (In Minutes): 40 Discharge Plan Discharge Items Patient Disposition: Home - Self-Care Reason For Visit: RUQ PAIN Discharge Diagnosis: Right upper quadrant pain possibly due to acute cholecystitis Discharge Goals: Decrease discomfort and Improve disease control Activity: Resume your previous activity Non-emergency contact: Primary Care Provider Call non-emergency contact if: you have any medication questions and your symptoms worsen Follow-up/Referrals: Beatris Noriega PA-C [Primary Care Provider] - Diet: Heart Healthy Diet Comment: Low residue diet Addtl Provider Instructions: Please follow up with family physician within one week. Prescriptions: New ciprofloxacin HCl 500 mg tablet 500 mg PO BID Qty: 10 RF: 0 metronidazole [Flagyl] 500 mg tablet 500 mg PO BID Qty: 10 RF: 0 Continued losartan 50 mg tablet 50 mg PO QAM RF: 0 carvedilol 6.25 mg tablet 6.25 mg PO BID RF: 0 clopidogrel 75 mg tablet 75 mg PO DAILY RF: 0 acetaminophen [Tylenol Extra Strength] 500 mg Tablet 500 mg PO UD PRN (Reason: Pain) RF: 0 ranitidine HCl 150 mg tablet 150 mg PO BID RF: 0 fluoxetine 20 mg capsule 20 mg PO QAM RF: 0 Stand-Alone Forms: Call Back Authorization, [facility] Discharge Orders: Discharge Order (Routine); Ordered 07/24/18 Ordered By: Kristin Love Admission Data Admit Date/Time: 07/22/18 23:35 Attending Provider: Kristin Love Admit Provider: Yuli Foster Primary Care Provider: Beatris Noriega Other Providers: Shawna Huffman ; Ayush Jasmine ; Laly Robin Service: Surgical Services Other Interventions: Discharge Summary Assessment (RN) Last Done: 07/24/18 18:08 DC Date/Time DO NOT enter until pt leaves facility: 07/24/18 20:11
--- NOTE | 2018-07-24 20:01 | Surgery Progress Note ---
Date of Service July 24, 2018 Assessment & Plan (1) Abdominal pain: Pt is a 73 yo female with history of a type b aortic dissection, cirrhosis, hemochromatosis, and reflux. She presented with sudden onset of epigastric pain radiating between her shoulder blades and chest as well as elevated LFTs. However her LFTs are chronically elevated. CT scan shows perihepatic ascites in addition to trace pericholecystic fluid, gallbladder wall thickening, and a few punctate stones. Certainly this is concerning for possible cholecystitis, but she also has other potentially confounding factors as well. Since admission her LFTs have trended downward, and WBC has normalized. Continues to have RUQ pain. U/S completed, and also concerning for acute cholecystitis. HIDA scan was obtained and was negative for acute cholecystitis. - Despite (-) HIDA would complete a course of antibiotics - Consider asking GI to reassess for further etiologies of her pain. While it is theoretically possible that antibiotics cleared infection enough for HIDA to be negative I have never seen this occur and think it would be very highly unlikely in the short timeframe she received abx - Okay to advance to regular diet Subjective Patient states RUQ pain is less compared to yesterday. Denies nausea. Physical Exam Constitutional: no acute distress Respiratory: normal respiratory effort Gastrointestinal (Abdomen): soft, nondistended, RUQ tenderness (improved compared to yesterday) Results & Data Vital Signs (Past 12 Hours) Vital Signs Temp Pulse Pulse Resp BP BP Pulse Ox 07/24/18 18:08 36.7 C 66 59 L 16 155/86 H 158/78 H 94 07/24/18 16:58 155/86 H 07/24/18 15:29 36.7 C 59 L 16 180/65 H 94 07/24/18 12:25 192/85 H Laboratory Results 07/24/18 07/24/18 Range/Units 06:48 06:48 WBC 4.19 L (4.8-10.8) K/uL RBC 3.23 L (4.2-5.4) M/uL Hgb 10.9 L (12.0-16.0) g/dL Hct 32.2 L (37-47) % MCV 99.7 (80-100) fL MCH 33.7 (25-34) pg MCHC 33.9 (32-36) g/dL RDW Std Deviation 52.2 H (36.4-46.3) fL RDW Coeff of Conner 14.7 H (11.5-14.5) % Plt Count 132 (130-400) K/uL MPV 9.7 (7.4-10.4) fL Immature Gran % (Auto) 0.2 % Neut % (Auto) 49.4 % Lymph % (Auto) 32.0 % [place] % (Auto) 12.4 % Eos % (Auto) 5.5 % Baso % (Auto) 0.5 % Immature Gran # (Auto) 0.01 (0.00-0.02) K/uL Neut # (Auto) 2.07 (1.4-6.5) K/uL Lymph # (Auto) 1.34 (1.2-3.4) K/uL [place] # (Auto) 0.52 (0.11-0.59) K/uL Eos # (Auto) 0.23 (0-0.5) K/uL Baso # (Auto) 0.02 (0-0.2) K/uL Sodium 141 (136-145) mmol/L Potassium 3.8 (3.5-5.1) mmol/L Chloride 111 H (98-107) mmol/L Carbon Dioxide 25 (21-32) mmol/L Anion Gap 5.0 (3-11) BUN 9 D (7-18) mg/dl Creatinine 0.69 (0.6-1.2) mg/dl Est Cr Clr Drug Dosing 52.8 ml/min Est GFR ( Amer) 99.4 Est GFR (Non-Af Amer) 85.8 BUN/Creatinine Ratio 13.7 (10-20) Glucose 81 (70-99) mg/dl Calcium 7.6 L (8.5-10.1) mg/dl Total Bilirubin 1.3 H (0.2-1) mg/dl AST 36 (15-37) U/L ALT 22 (12-78) U/L Alkaline Phosphatase 174 H (45-117) U/L Total Protein 6.3 L (6.4-8.2) gm/dl Albumin 2.8 L (3.4-5.0) gm/dl Globulin 3.5 (2.5-4.0) gm/dl Albumin/Globulin Ratio 0.8 L (0.9-2) Diagnostic Findings (07/23/18) HIDA: FINDINGS: Hepatic uptake of radiotracer is prompt and homogeneous. Activity is identified within the gallbladder and common bile duct at 15 minutes. Small bowel activity is noted at 15 minutes as well. IMPRESSION: No evidence for acute cholecystitis. (1) Abdominal pain Abdominal location: unspecified location Qualified Code(s): R10.9 - Unspecified abdominal pain
== END 2018-07-24 20:11 | disposition home or self-care (01) | DRG 444 ==
LOC: ED 18:15 → SUATTDRO 23:35 → 3N 23:35

== ENCOUNTER 2018-08-05 20:30 | Inpatient (IN) ==
[2018-08-05 20:57] LABS: Hematocrit (blood only) 37.5 % (37-47); Hemoglobin 13.1 g/dL (12.0-16.0); Mean Corpuscular Hgb Conc 34.9 g/dL (32-36); Mean Corpuscular Volume 98.7 fL (80-100); Mean Platelet Volume 10.5 fL (7.4-10.4); Platelet Count 203 K/uL (130-400); RDW Standard Deviation 49.6 fL (36.4-46.3); White Blood Count 17.77 K/uL (4.8-10.8)
[2018-08-05 21:10] LABS: Albumin Level 3.5 gm/dl (3.4-5.0); BUN Creatinine Ratio 17.5 (10-20); Calcium 8.9 mg/dl (8.5-10.1); Est GFR (African American) 80.5; Est GFR (Non-African American) 69.5; Potassium 3.5 mmol/L (3.5-5.1)
[2018-08-05 21:13] LABS: Albumin Globulin Ratio 0.8 (0.9-2); Bilirubin,Total 1.5 mg/dl (0.2-1); Globulin 4.3 gm/dl (2.5-4.0); Total Protein 7.8 gm/dl (6.4-8.2)
[2018-08-05 21:36] LABS: Basophils # (auto) 0.03 K/uL (0-0.2); Basophils % (auto) 0.2 %; Eosinophils # (auto) 0.01 K/uL (0-0.5); Eosinophils % (auto) 0.1 %; Immature Granulocytes # (auto) 0.05 K/uL (0.00-0.02); Immature Granulocytes % (auto) 0.3 %; Lymphocytes # (auto) 1.61 K/uL (1.2-3.4); Lymphocytes % (auto) 9.1 %; Monocytes % (auto) 5.6 %; Neutrophils # (auto) 15.07 K/uL (1.4-6.5); Neutrophils % (auto) 84.7 %
[2018-08-05] MEDS ORDERED: SODIUM CHLORIDE 0.9% 500 ML IV ONE (21:52)
[2018-08-05] MEDS ORDERED: MoRPHine SULFATE 4 MG/ML 1 ML CARP\\VIAL IV STA (21:52)
[2018-08-05] MEDS ORDERED: OPTIRAY 320 125ml IV PRN (22:48)
--- NOTE | 2018-08-05 22:57 | CT Scan Report ---
Study: CT angiography of the abdomen and pelvis HISTORY: Stent placement. Aneurysm. Pain. Nausea. FINDINGS: Stable exam with no change compared to the prior study. Postoperative changes including stent placements of the distal thoracic aorta. Unchanged small endole ak as well as small chronic distal abdominal aorta dissection which has been previously described. Th is is unchanged. Liver spleen and pancreas appear uniform. Bowel pattern suggests a mild generalized nonobstructive il eus. No evidence for an obstructing lesion or mass. No free fluid within the abdominal pelvic or ingu inal regions. Unchanged mild vaginal prolapse. Inguinal regions are unremarkable. IMPRESSION: 1. Stable postoperative changes including stent placement. This involves descending thoracic aorta as well as left renal artery. 2. Mild generalized nonobstructive ileus. 3. Stable small focal dissection distal abdominal aorta. This is stable compared to prior studies. 4. Generalized atherosclerotic change throughout the abdominal and pelvic arterial vasculature which has been described previously. 5. No evidence for arterial occlusion. Electronically signed by: Christiano Amos M.D. 08/05/2018 10:56 PM
[2018-08-06] MEDS ORDERED: MoRPHine SULFATE 2 MG/ML CARP IV STA ×2 (00:46→01:21)
[2018-08-06] MEDS ORDERED: PIPERACILLIN/TAZOBACTAM 3.375 GM/115 ML BAG IV STA (01:20)
[2018-08-06] MEDS ORDERED: PIPERACILL/TAZOBAC CONSULT ACTIVE PRN (01:20)
[2018-08-06] MEDS ORDERED: ONDANSETRON INJ 2 MG/ML 2 ML VIAL IV STA (01:21)
[2018-08-06 02:19] LABS: Cdiff Antigen Positive; Cdiff Toxin A+B Positive Cdiff Toxin (Negative)
[2018-08-06] MEDS ORDERED: VANCOMYCIN HCL 125 MG/2.5ML SOLN PO STA (02:32)
[2018-08-06] MEDS ORDERED: SODIUM CHLORIDE 0.9% 500 ML IV SCH (03:00)
--- NOTE | 2018-08-06 04:08 | History & Physical Report ---
Date of Service August 06, 2018 Assessment & Plan (1) Abdominal pain: 73 y/o F Hx HTN, HLD, GERD, depression, cirrhosis, ascending aortic dissection - repaired, presents with right upper quadrant abdominal pain and diarrhea for 2 days. Denies fevers or rigors. Findings on an US of the RUQ we re consistent with cholecystitis. The pt was admitted with similar complaints and similar findings on a CT 07/22. She underwent a HIDA scan at the time which proved negative. She improved clinically, was placed on a course of antibiotics and scheduled for outpt follow-up at [facility]. After conferring with surgery, the ER attending had intended to transfer the pt to [facility]. They did not have any beds however, so she will be admitted for IV antibiotics and pain control in the interim. Initial labs are notable for leukocytosis and otherwise comparable to her baseline with mild LFT abnormalities. 1) Cholecystitis - recurrence. Placed on Unasyn. Surgery is consulted although they may prefer that she proceed to [facility] eventually. Pt will be kept NPO. IVF, antiemetics, analgesics as needed. 2) HTN - cont Carvedilol 3) HLD - not currently treated as she is statin intolerant 4) GERD - cont Ranitidine 5) Depression - cont fluoxetine. 6) Cirrhosis/hemochromatosis - outpt follow up Full code - SCDs Total time for this consult including review of imaging, records - discussion with pt and ER attending - 38 min Present on Admission?: Yes History of Present Illness Chief Complaint: Abdomial pain Primary Care Provider: Beatris Noriega PA-C 73 y/o F Hx HTN, HLD, GERD, depression, cirrhosis, descending aortic dissection - repaired, presents with right upper quadrant abdominal pain and diarrhea for 2 days. Denies fevers or rigors. Findings on an US of the RUQ were consistent with cholecystitis. The pt was admitted with similar complaints and similar findings on a CT 07/22. She underwent a HIDA scan at the time which proved negative. She improved clinically, was placed on a course of antibiotics and scheduled for outpt follow-up at [facility]. After conferring with surgery, the ER attending had intended to transfer the pt to [facility]. They did not have any beds however, so she will be admitted for IV antibiotics and pain control in the interim. Initial labs are notable for leukocytosis and otherwise comparable to her baseline with mild LFT abnormalities. PMH: 1) Descending aortic dissection - repaired 2) Cirrhosis due to hemochromatosis 3) HTN 4) HLD - statin-intolerant 5) GERD Surgical: AAA repair at [facility] 2017 Social: Quit smoking 2017, occasional ETOH Family: Father due to "old age" 86 Mother due to cirrhosis Allergies Allergy/AdvReac Type Severity Reaction Status Date / Time pollen extracts Allergy Intermediate Swelling Verified 08/05/18 21:57 of throat Nrnxjyv-Loc-Ifc Reductase AdvReac Severe Blistering Verified 08/05/18 21:57 Inhibitor of Mouth codeine AdvReac Intermediate vomiting Verified 08/05/18 21:57 Home Medications Home Medications Medication Instructions Recorded Confirmed Type acetaminophen [Tylenol Extra 500 mg PO UD PRN 07/22/18 08/05/18 History Strength] carvedilol 6.25 mg PO BID 07/22/18 08/05/18 History clopidogrel 75 mg PO DAILY 07/22/18 08/05/18 History fluoxetine 20 mg PO QAM 07/22/18 08/05/18 History losartan 50 mg PO QAM 07/22/18 08/05/18 History ranitidine HCl 150 mg PO BID 07/22/18 08/05/18 History Past Med/Surg History Medical History 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 Status post TEVAR 09/2017 from the mid thoracic aorta to the celiac artery. Also a 5 x 17-mm bare-metal stent placed in the left superior renal artery and an 8 x 37 bare-metal stent in the left iliac artery. Hypertension (Acute) Surgical History Aneurysm (Acute) History of abdominal aortic aneurysm (AAA) repair September of 2017 Social History Preferred Language: Ukrainian Communication Ability: Effective Beliefs That Will Affect Care: None Current Living Situation: Spouse Current Living Situation Comment: at home with Feels Safe at Home: Yes Smoking Status: Former smoker Hx Alcohol Use: No Hx Substance Use: No Review of Systems Review of Systems: Gen: Denies fevers, night sweats, rigors, fatigue, malaise, weight loss/gain ENT: Denies congestion, throat pain, hearing loss Eyes: Denies acute visual changes CV: Denies CP, palpitations Pulmonary: Denies SOB, cough, wheezing GI: RUQ pain and diarrhea Neuro: Denies acute or unilateral weakness, acute gait impairment, headache or acute visual changes Musculoskeletal: Denies joint pain, inflammation Endocrine: Denies polydipsia, polyuria Skin: Denies acute rashes or ulcers Physical Exam Physical Exam: General: AAO x 3, no distress ENT: No erythema or exudates, no thrush Eyes: LATRELL, EOMI Head and neck: Normocephalic, atraumatic, No JVD, neck is supple. Chest/heart: Nontender, S1,2, RRR, no murmurs, no gallops Lungs: CTAB, no wheezing or crackles Abdomen: Very tender RUQ Neuro: AAO x 3, speech is clear, no unilateral weakness or loss of sensation, coordination intact Musculoskeletal: No joint inflammation, muscle tenderness, FROM Skin: No acute rashes or ulcers Extremities: No clubbing, cyanosis, edema Results & Data Vital Signs (Past 12 Hours) Vital Signs Temp Pulse Pulse Resp BP BP Pulse Ox 08/06/18 03:00 78 16 112/55 L 92 08/06/18 02:40 80 18 103/55 L 94 08/06/18 01:49 93 08/06/18 00:55 84 18 112/64 93 08/05/18 23:20 88 18 156/85 H 93 08/05/18 22:15 79 20 187/80 H 94 08/05/18 20:36 97.7 F 82 18 170/120 H 93 Diagnostic Findings CTA abdomen: 1. Stable postoperative changes including stent placement. This involves descending thoracic aorta as well as left renal artery. 2. Mild generalized nonobstructive ileus. 3. Stable small focal dissection distal abdominal aorta. This is stable compared to prior studies. 4. Generalized atherosclerotic change throughout the abdominal and pelvic arterial vasculature which has been described previously. 5. No evidence for arterial occlusion. PG Care Time/CCT Total # of Minutes Spent Total Time Spent with Patient: Total time spent is greater than 50% in coordination of care (as documented) at patient's floor/unit and/or counseling patient: (1) Abdominal pain Abdominal location: unspecified location Qualified Code(s): R10.9 - Unspecified abdominal pain
--- NOTE | 2018-08-06 04:10 | Emergency Department Note ---
History of Present Illness General Chief complaint: Abdominal Pain Stated complaint: Abdominal pain, diarrhea/Headache Source: patient and family Mode of arrival: EMS Limitations: no limitations History of Present Illness Maximum Pain Intensity: 4 This patient is a 73-year-old female who presents to the emergency department via EMS for evaluation of right-sided abdominal pain, nausea, diarrhea and headache. She states that her symptoms started last night after eating a burger. She woke up with pain and states she has also had multiple episodes of diarrhea since the pain began. She rates her overall discomfort a 10/10. She states that nothing has made the pain better or worse. She has not taken any medication for pain. Patient states she was admitted here a few weeks ago due to her gallbladder, but they did not want to take it out because she is high risk. She states that she has an aortic stent which was done at [facility]. Home Medications Home Medications Medication Instructions Recorded Confirmed Type acetaminophen [Tylenol Extra 500 mg PO UD PRN 07/22/18 08/05/18 History Strength] carvedilol 6.25 mg PO BID 07/22/18 08/05/18 History clopidogrel 75 mg PO DAILY 07/22/18 08/05/18 History fluoxetine 20 mg PO QAM 07/22/18 08/05/18 History losartan 50 mg PO QAM 07/22/18 08/05/18 History ranitidine HCl 150 mg PO BID 07/22/18 08/05/18 History Allergies Allergy/AdvReac Type Severity Reaction Status Date / Time pollen extracts Allergy Intermediate Swelling Verified 08/05/18 21:57 of throat [id number]-[id number]-Jum Reductase AdvReac Severe Blistering Verified 08/05/18 21:57 Inhibitor of Mouth codeine AdvReac Intermediate vomiting Verified 08/05/18 21:57 Past Med/Surg History Medical History 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 Status post TEVAR 09/2017 from the mid thoracic aorta to the celiac artery. Also a 5 x 17-mm bare-metal stent placed in the left superior renal artery and an 8 x 37 bare-metal stent in the left iliac artery. Hypertension (Acute) Surgical History Aneurysm (Acute) History of abdominal aortic aneurysm (AAA) repair September of 2017 Family History Other Family history non-contributory Social History Preferred Language: Ukrainian Communication Ability: Effective Principal Bioinformatics Specialist Required: No Beliefs That Will Affect Care: None Current Living Situation: Spouse Current Living Situation Comment: at home with Feels Safe at Home: Yes Safety Concerns: Feels Safe At This Time Smoking Status: Former smoker Hx Alcohol Use: No Hx Substance Use: No Review of Systems A total of 10 systems reviewed and were otherwise negative Physical Exam Vital Signs Vital Signs - 24 hr 08/05/18 20:36 08/05/18 22:15 08/05/18 23:20 Temperature 36.5 C Temperature Source Oral Sepsis Recent Fever Within 48 Hours No Sepsis Action Taken by Nursing No Action Required Pulse Rate 82 Pulse Rate [Right Finger] 79 88 Pulse Rhythm [Right Finger] Pulse Strength [Right Finger] Respiratory Rate 18 20 18 Respiratory Effort / Characteristics Non-Labored Spontaneous Non-Labored Spontaneous Non-Labored Spontaneous Respiratory Depth Normal Normal Normal Respiratory Pattern Regular Regular Regular Blood Pressure 170/120 H Blood Pressure [Left Arm] 187/80 H 156/85 H Blood Pressure Mean 136 Blood Pressure Mean [Left Arm] 115 108 Blood Pressure Position Lying Blood Pressure Position [Left Arm] Lying Lying Pulse Oximetry 93 94 93 Oxygen Delivery Method Room Air Room Air Room Air 08/06/18 00:55 08/06/18 01:49 08/06/18 02:40 Temperature Temperature Source Sepsis Recent Fever Within 48 Hours Sepsis Action Taken by Nursing Pulse Rate Pulse Rate [Right Finger] 84 80 Pulse Rhythm [Right Finger] Pulse Strength [Right Finger] Respiratory Rate 18 18 Respiratory Effort / Characteristics Non-Labored Spontaneous Non-Labored Spontaneous Respiratory Depth Normal Normal Respiratory Pattern Regular Regular Blood Pressure Blood Pressure [Left Arm] 112/64 103/55 L Blood Pressure Mean Blood Pressure Mean [Left Arm] 80 71 Blood Pressure Position Blood Pressure Position [Left Arm] Lying Lying Pulse Oximetry 93 93 94 Oxygen Delivery Method Room Air Room Air Room Air 08/06/18 03:00 08/06/18 04:00 Temperature Temperature Source Sepsis Recent Fever Within 48 Hours Sepsis Action Taken by Nursing Pulse Rate Pulse Rate [Right Finger] 78 79 Pulse Rhythm [Right Finger] Regular Pulse Strength [Right Finger] Normal Respiratory Rate 16 18 Respiratory Effort / Characteristics Respiratory Depth Normal Normal Respiratory Pattern Blood Pressure Blood Pressure [Left Arm] 112/55 L 114/72 Blood Pressure Mean Blood Pressure Mean [Left Arm] 74 86 Blood Pressure Position Blood Pressure Position [Left Arm] Pulse Oximetry 92 90 Oxygen Delivery Method Room Air Room Air VITALS: Vitals are noted on the nurse's note and reviewed by myself. Vital signs stable. GENERAL: This is a 73-year-old female, uncomfortable appearing, well-developed well-nourished. SKIN: The skin was without rashes. HEAD: Normocephalic atraumatic. EARS: External auditory canals clear, tympanic membranes pearly higginbotham without erythema or effusion bilaterally. EYES: Pupils equal round and reactive to light and accommodation. MOUTH: Mucous membranes moist. Tonsils are not enlarged. Pharynx without erythema or exudate. NECK: Supple without nuchal rigidity. No lymphadenopathy. No meningismus. HEART: Regular rate and rhythm without murmurs gallops or rubs. LUNGS: Clear to auscultation bilaterally without wheezes, rales or rhonchi. ABDOMEN: Positive bowel sounds x 4. Soft, mild tenderness throughout. Focal tenderness in the left lower quadrant and right upper quadrant. No guarding or rebound tenderness. NEURO: Patient was alert and oriented to person place and time. Course Consultations Consultation #1: Dr. Ramos - general surgery Dr. Ramos feels that the patient is high risk due to possible decompensation of her cirrhosis after surgery and recommends transfer to a tertiary care facility for treatment of her cholecystitis. Consultation #2: Dr. Rashid - [facility] gastroenterology I spoke with the feed inspection supervisor at [facility] regarding the patient. They feel that the patient will likely need a percutaneous drain performed by IR. They have no beds at that time, but can take the patient when the next bed is available. They feel that as long as the patient is stable, it is reasonable for her to be admitted here for IV antibiotics and transferred when the bed becomes available. Consultation #3: Dr. Mireles - [facility] [place] hospitalist Dr. Mireles was consulted to evaluate the patient for admission. Administered Medications Dextrose/Lactated Ringer's (D5w And Lactated Ringers) 1,000 mls @ 125 mls/hr IV .Q8H BRICE Stop: 08/06/18 22:02 Last Admin: 08/06/18 06:28 Dose: 125 mls/hr Documented by: [id number] Ampicillin Sodium/Sulbactam Sodium 3,000 mg/ Sodium Chloride 108 mls @ 200 mls/hr IV Q6H BRICE; Protocol Stop: 08/16/18 05:59 Last Admin: 08/06/18 06:40 Dose: 200 mls/hr Documented by: [id number] Discontinued Medications Sodium Chloride (Nss) 500 mls @ 999 mls/hr IV .Q31M ONE Stop: 08/05/18 22:22 Last Infusion: 08/05/18 22:34 Dose: 0 mls/hr Documented by: [id number] Admin: 08/05/18 22:01 Dose: 999 mls/hr Documented by: [id number] Piperacillin Sod/Tazobactam Sod (Zosyn) 3.375 gm in 115 mls @ 230 mls/hr IV NOW STA Stop: 08/06/18 01:49 Last Infusion: 08/06/18 02:20 Dose: 0 mls/hr Documented by: [id number] Admin: 08/06/18 01:40 Dose: 230 mls/hr Documented by: [id number] Sodium Chloride (Nss) 500 mls @ 80 mls/hr IV .Q6H15M BRICE Stop: 09/05/18 02:59 Last Infusion: 08/06/18 07:04 Dose: 0 mls/hr Documented by: [id number] Admin: 08/06/18 03:02 Dose: 80 mls/hr Documented by: [id number] Ioversol (Optiray 320 125ml) 125 ml IV ONCE PRN PRN Reason: Interaction Checking Stop: 08/09/18 22:47 Last Admin: 08/05/18 22:49 Dose: 119 ml Documented by: [id number] Morphine Sulfate (Morphine Sulfate) 4 mg IV NOW STA Stop: 08/05/18 21:53 Last Admin: 08/05/18 22:04 Dose: 4 mg Documented by: [id number] Morphine Sulfate (Morphine Sulfate) 2 mg IV NOW STA Stop: 08/06/18 00:47 Last Admin: 08/06/18 00:50 Dose: 2 mg Documented by: [id number] Morphine Sulfate (Morphine Sulfate) 2 mg IV NOW STA Stop: 08/06/18 01:22 Last Admin: 08/06/18 01:40 Dose: 2 mg Documented by: [id number] Ondansetron HCl (Zofran) 4 mg IV NOW STA Stop: 08/06/18 01:22 Last Admin: 08/06/18 01:40 Dose: 4 mg Documented by: [id number] Raspberry (Raspberry) 5 ml PO Q6 BRICE Stop: 08/20/18 05:59 Last Admin: 08/06/18 03:01 Dose: 5 ml Documented by: [id number] Vancomycin HCl (Vancomycin Hcl) 125 mg PO NOW STA Stop: 08/06/18 02:33 Last Admin: 08/06/18 03:01 Dose: 125 mg Documented by: [id number] Medical Decision Making Differential Diagnosis Differential diagnosis includes cholecystitis, ascending cholangitis, bowel obstruction, aortic dissection, diverticulitis, colitis, C. difficile, among others. Medical Records Attestation: I reviewed the patient's medical records. Home Medications Current Medication List: was personally reviewed by me Laboratory Data Attestation: I reviewed the patient's lab results. Result diagrams: 08/05/18 20:38 08/05/18 20:38 Lab Results 08/05/18 08/05/18 08/05/18 Range/Units 20:38 20:38 22:29 WBC 17.77 H (4.8-10.8) K/uL RBC 3.80 L (4.2-5.4) M/uL Hgb 13.1 (12.0-16.0) g/dL Hct 37.5 (37-47) % MCV 98.7 (80-100) fL MCH 34.5 H (25-34) pg MCHC 34.9 (32-36) g/dL RDW Std Deviation 49.6 H (36.4-46.3) fL RDW Coeff of Conner 14.0 (11.5-14.5) % Plt Count 203 (130-400) K/uL MPV 10.5 H (7.4-10.4) fL Immature Gran % (Auto) 0.3 % Neut % (Auto) 84.7 % Lymph % (Auto) 9.1 % [place] % (Auto) 5.6 % Eos % (Auto) 0.1 % Baso % (Auto) 0.2 % Immature Gran # (Auto) 0.05 H (0.00-0.02) K/uL Neut # (Auto) 15.07 H (1.4-6.5) K/uL Lymph # (Auto) 1.61 (1.2-3.4) K/uL [place] # (Auto) 1.00 H (0.11-0.59) K/uL Eos # (Auto) 0.01 (0-0.5) K/uL Baso # (Auto) 0.03 (0-0.2) K/uL Sodium 134 L (136-145) mmol/L Potassium 3.5 (3.5-5.1) mmol/L Chloride 100 (98-107) mmol/L Carbon Dioxide 23 (21-32) mmol/L Anion Gap 11.0 (3-11) BUN 15 (7-18) mg/dl Creatinine 0.83 (0.6-1.2) mg/dl Est Cr Clr Drug Dosing 45.0 ml/min Est GFR ( Amer) 80.5 Est GFR (Non-Af Amer) 69.5 BUN/Creatinine Ratio 17.5 (10-20) Glucose 95 (70-99) mg/dl Lactate 1.1 (0.4-2.0) mmol/L Calcium 8.9 (8.5-10.1) mg/dl Total Bilirubin 1.5 H (0.2-1) mg/dl AST 49 H (15-37) U/L ALT 26 (12-78) U/L Alkaline Phosphatase 158 H (45-117) U/L Total Protein 7.8 (6.4-8.2) gm/dl Albumin 3.5 (3.4-5.0) gm/dl Globulin 4.3 H (2.5-4.0) gm/dl Albumin/Globulin Ratio 0.8 L (0.9-2) Lipase 127 (73-393) U/L Stl C. diff Tox B Gene (Neg) Stl C.difficile Tox A&B (Negative) 08/06/18 Range/Units 00:05 WBC (4.8-10.8) K/uL RBC (4.2-5.4) M/uL Hgb (12.0-16.0) g/dL Hct (37-47) % MCV (80-100) fL MCH (25-34) pg MCHC (32-36) g/dL RDW Std Deviation (36.4-46.3) fL RDW Coeff of Conner (11.5-14.5) % Plt Count (130-400) K/uL MPV (7.4-10.4) fL Immature Gran % (Auto) % Neut % (Auto) % Lymph % (Auto) % [place] % (Auto) % Eos % (Auto) % Baso % (Auto) % Immature Gran # (Auto) (0.00-0.02) K/uL Neut # (Auto) (1.4-6.5) K/uL Lymph # (Auto) (1.2-3.4) K/uL [place] # (Auto) (0.11-0.59) K/uL Eos # (Auto) (0-0.5) K/uL Baso # (Auto) (0-0.2) K/uL Sodium (136-145) mmol/L Potassium (3.5-5.1) mmol/L Chloride (98-107) mmol/L Carbon Dioxide (21-32) mmol/L Anion Gap (3-11) BUN (7-18) mg/dl Creatinine (0.6-1.2) mg/dl Est Cr Clr Drug Dosing ml/min Est GFR ( Amer) Est GFR (Non-Af Amer) BUN/Creatinine Ratio (10-20) Glucose (70-99) mg/dl Lactate (0.4-2.0) mmol/L Calcium (8.5-10.1) mg/dl Total Bilirubin (0.2-1) mg/dl AST (15-37) U/L ALT (12-78) U/L Alkaline Phosphatase (45-117) U/L Total Protein (6.4-8.2) gm/dl Albumin (3.4-5.0) gm/dl Globulin (2.5-4.0) gm/dl Albumin/Globulin Ratio (0.9-2) Lipase (73-393) U/L Stl C. diff Tox B Gene Positive Cdiff Gene H (Neg) Stl C.difficile Tox A&B Positive Cdiff Toxin A* (Negative) Imaging Data Radiologist's Impression: Study: CT angiography of the abdomen and pelvis FINDINGS: Stable exam with no change compared to the prior study. Postoperative changes including stent placements of the distal thoracic aorta. Unchanged small endoleak as well as small chronic distal abdominal aorta dissection which has been previously described. This is unchanged. Liver spleen and pancreas appear uniform. Bowel pattern suggests a mild generalized nonobstructive ileus. No evidence for an obstructing lesion or mass. No free fluid within the abdominal pelvic or inguinal regions. Unchanged mild vaginal prolapse. Inguinal regions are unremarkable. IMPRESSION: 1. Stable postoperative changes including stent placement. This involves descending thoracic aorta as well as left renal artery. 2. Mild generalized nonobstructive ileus. 3. Stable small focal dissection distal abdominal aorta. This is stable compared to prior studies. 4. Generalized atherosclerotic change throughout the abdominal and pelvic arterial vasculature which has been described previously. 5. No evidence for arterial occlusion. Electronically signed by: Christiano Amos M.D. US GALLBLADDER: Comparison 07/23 Cholelithiasis and sludge. Edematous, thickened gallbladder wall measuring 8 mm in thickness. Pericholecystic fluid. Gallbladder distended. Sonographic findings are suspicious for cholecystitis. Could correlate with HIDA, as indicated. Previous exam also demonstrated findings suspicious for cholecystitis. Cirrhotic morphology liver, as on prior. Pancreas obscured. Normal caliber CBD. No right hydronephrosis. Radiologist: Donnie Dey M.D. ECG Data Attestation: I personally reviewed and interpreted this ECG as follows: Indication: abdominal pain Rate (beats per minute): 80 Rhythm: normal sinus Findings: + RBBB and + T-wave inversion Change: no significant change Blood Pressure Blood Pressure Findings: Normal blood pressure Blood Pressure Disposition: did not require urgent referral MDM Narrative The patient is a 73-year-old female who presents today complaining of abdominal pain, headache and diarrhea. Labs revealed a leukocytosis of 17,000. Patient has a somewhat stable elevation of her LFTs, with bilirubin 1.5, AST 49, ALT 26 and alkaline phosphatase 158. Lactate was not elevated at 1.1. CT initially performed and shows no significant acute findings. There did appear to be a generalized ileus. Right upper quadrant ultrasound was suggestive of acute cholecystitis. Patient was also found to be positive for C. difficile. Initially discussed the case with the surgeon here, who recommended transfer to tertiary care center as patient is high risk due to cirrhosis and risk of decomp ensation. I spoke with the feed inspection supervisor at [facility], who did feel the patient will require IR percutaneous drain placement. They unfortunately did not have any beds at this time, but did agree to call as soon as a bed was available to arrange transfer. They recommended IV antibiotics and admission here until this was available. Patient was given a dose of Zosyn. She was also given oral vancomycin for the C. difficile. She was admitted to the [facility]. She received several small doses of morphine in the emergency department with good improvement of her pain. Vital signs remained stable throughout her stay in the ER. The patient was independently evaluated by Dr. martin, who agreed with my assessment and treatment plan. Impression & Plan Acute cholecystitis, C. difficile diarrhea Discharge Plan Visit Data *Final* Discharge Date/Time: 08/06/18 05:25 Chief Complaint: Abdominal Pain Stated Complaint: Abdominal pain, diarrhea/Headache ED Provider: Constance Martin ED Midlevel Provider: Halie Montgomery Discharge Problem: Acute cholecystitis, C. difficile diarrhea Patient Disposition: Admitted As Inpatient Discharge Instructions Interventions: ED Discharge Assessment Last Done: 08/06/18 05:25
[2018-08-06] MEDS ORDERED: RASPBERRY SYRUP 5 ML UDP PO SCH (06:00)
[2018-08-06] MEDS ORDERED: ONDANSETRON INJ 2 MG/ML 2 ML VIAL IV PRN (06:03)
[2018-08-06] MEDS: D5W AND LACTATED RINGERS 1,000 ML IV SCH ×2 (06:28→14:27)
[2018-08-06] MEDS: AMPICILLIN/SULBACTAM SOD 3,000 MG in 0.9 % SODIUM CHLORIDE 100 ML IV SCH ×4 (06:40→23:34)
--- NOTE | 2018-08-06 07:15 | Ultrasound Report ---
US gallbladder CLINICAL HISTORY: Abdominal pain. COMPARISON STUDY: Right upper quadrant ultrasound July 23, 2018. CTA of the abdomen and pelvis July 202018. FINDINGS: Coarsening of hepatic echotexture suggests cirrhosis. No hepatic lesions are identified. Th ere is no biliary ductal dilatation. The gallbladder is moderately distended. Several gallstones are noted. Doppler wall thickening is noted. The wall measures 8 mm in thickness. The pancreas is obscure d by overlying bowel gas. There is no right hydronephrosis IMPRESSION: 1. Cholelithiasis, gallbladder wall thickening and gallbladder distention. These findings are suggest florian of acute cholecystitis. 2. Coarsening of hepatic echotexture suggestive of cirrhosis. 3. No biliary ductal dilatation. Electronically signed by: Igor Rogers M.D. 08/06/2018 7:14 AM
[2018-08-06] MEDS: POTASSIUM CHLORIDE / WTR 10 MEQ/100 ML PLCT IV SCH ×2 (07:34→09:30)
[2018-08-06 08:16] LABS: Basophils # (auto) 0.02 K/uL (0-0.2); Basophils % (auto) 0.1 %; Eosinophils # (auto) 0.01 K/uL (0-0.5); Eosinophils % (auto) 0.1 %; Hematocrit (blood only) 35.7 % (37-47); Hemoglobin 12.4 g/dL (12.0-16.0); Immature Granulocytes # (auto) 0.04 K/uL (0.00-0.02); Immature Granulocytes % (auto) 0.3 %; Lymphocytes # (auto) 1.27 K/uL (1.2-3.4); Mean Corpuscular Hgb Conc 34.7 g/dL (32-36); Mean Corpuscular Volume 99.4 fL (80-100); Mean Platelet Volume 10.6 fL (7.4-10.4); Monocytes # (auto) 1.31 K/uL (0.11-0.59); Monocytes % (auto) 9.3 %; Neutrophils # (auto) 11.51 K/uL (1.4-6.5); Neutrophils % (auto) 81.2 %; Platelet Count 165 K/uL (130-400); RDW Coefficient of Variation 14.2 % (11.5-14.5); RDW Standard Deviation 51.4 fL (36.4-46.3); Red Blood Count 3.59 M/uL (4.2-5.4); White Blood Count 14.16 K/uL (4.8-10.8)
--- NOTE | 2018-08-06 08:30 | Surgery Consultation ---
Date of Consultation August 06, 2018 Assessment & Plan (1) Cholecystitis: This patient has cholelithiasis with evidence of gallbladder wall thickening. This is suggestive of cholecystitis. I feel that cystectomy would be of benefit to her. However because of her cirrhosis, severe vascular disease and acute C. difficile infection I think that a tertiary care center would serve her better. Contacted been made with [facility]. We are awaiting a bed. I would continue to pursue that option. Present on Admission?: Yes History of Present Illness Requesting Physician: Tesfaye Mireles MD Attending Physician: Jamel Dubose MD History of Present Illness I have been asked by Dr. Mireles to see this 73-year-old female who presented to the emergency room with a complaint of pain mostly in the right upper quadrant. She was hospitalized about 2 weeks ago for similar discomfort. She was felt to possibly have cholecystitis however a HIDA scan demonstrated patency of the cystic duct. She was treated with antibiotics and conservative measures and the discomfort. The pain returned yesterday. It is located mostly in the right upper quadrant. She describes it as mild to moderate at the present time. She has not had nausea. She was also diagnosed with C. difficile and is having multiple liquid bowel movements. She has not seen blood with her stool. She has a history of hemochromatosis that has resulted in a diagnosis of cirrhosis. Allergies Allergy/AdvReac Type Severity Reaction Status Date / Time pollen extracts Allergy Intermediate Swelling Verified 08/05/18 21:57 of throat [id number] Reductase AdvReac Severe Blistering Verified 08/05/18 21:57 Inhibitor of Mouth codeine AdvReac Intermediate vomiting Verified 08/05/18 21:57 Home Medications Home Medications Medication Instructions Recorded Confirmed Type acetaminophen [Tylenol Extra 500 mg PO UD PRN 07/22/18 08/05/18 History Strength] carvedilol 6.25 mg PO BID 07/22/18 08/05/18 History clopidogrel 75 mg PO DAILY 07/22/18 08/05/18 History fluoxetine 20 mg PO QAM 07/22/18 08/05/18 History losartan 50 mg PO QAM 07/22/18 08/05/18 History ranitidine HCl 150 mg PO BID 07/22/18 08/05/18 History Patient History Medical History 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 Status post TEVAR 09/2017 from the mid thoracic aorta to the celiac artery. Also a 5 x 17-mm bare-metal stent placed in the left superior renal artery and an 8 x 37 bare-metal stent in the left iliac artery. 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 Beliefs That Will Affect Care: None Current Living Situation: Spouse Current Living Situation Comment: at home with Feels Safe at Home: Yes Safety Concerns: Feels Safe At This Time Smoking Status: Former smoker Hx Alcohol Use: No Hx Substance Use: No Physical Exam Constitutional: well developed; no acute distress Respiratory: Auscultation: lungs clear to auscultation bilaterally Cardiovascular: Rate/Rhythm: regular rate and regular rhythm Gastrointestinal (Abdomen): Inspection/Auscultation: abdomen normal to inspection; abdomen not distended Percussion/Palpation: + abdomen tender (Right upper quadrant to moderate palpation) and abdomen soft Skin: no rashes, warm and dry Lymphatic: no cervical lymphadenopathy Results & Data Vital Signs (Past 12 Hours) Vital Signs Temp Pulse Pulse Resp BP BP Pulse Ox 08/06/18 07:40 37.1 C 78 18 139/71 92 08/06/18 06:04 36.7 C 85 16 118/75 94 08/06/18 05:25 85 16 125/72 92 08/06/18 05:00 83 16 126/79 91 08/06/18 04:00 79 18 114/72 90 08/06/18 03:00 78 16 112/55 L 92 08/06/18 02:40 80 18 103/55 L 94 08/06/18 01:49 93 08/06/18 00:55 84 18 112/64 93 08/05/18 23:20 88 18 156/85 H 93 08/05/18 22:15 79 20 187/80 H 94 08/05/18 20:36 36.5 C 82 18 170/120 H 93 Laboratory Results 08/06/18 08/06/18 08/06/18 Range/Units 08:04 08:04 00:05 WBC 14.16 H (4.8-10.8) K/uL RBC 3.59 L (4.2-5.4) M/uL Hgb 12.4 (12.0-16.0) g/dL Hct 35.7 L (37-47) % MCV 99.4 (80-100) fL MCH 34.5 H (25-34) pg MCHC 34.7 (32-36) g/dL RDW Std Deviation 51.4 H (36.4-46.3) fL RDW Coeff of Conner 14.2 (11.5-14.5) % Plt Count 165 (130-400) K/uL MPV 10.6 H (7.4-10.4) fL Immature Gran % (Auto) 0.3 % Neut % (Auto) 81.2 % Lymph % (Auto) 9.0 % [place] % (Auto) 9.3 % Eos % (Auto) 0.1 % Baso % (Auto) 0.1 % Immature Gran # (Auto) 0.04 H (0.00-0.02) K/uL Neut # (Auto) 11.51 H (1.4-6.5) K/uL Lymph # (Auto) 1.27 (1.2-3.4) K/uL [place] # (Auto) 1.31 H (0.11-0.59) K/uL Eos # (Auto) 0.01 (0-0.5) K/uL Baso # (Auto) 0.02 (0-0.2) K/uL Sodium Pending (136-145) mmol/L Potassium Pending (3.5-5.1) mmol/L Chloride Pending (98-107) mmol/L Carbon Dioxide Pending (21-32) mmol/L Anion Gap Pending (3-11) BUN Pending (7-18) mg/dl Creatinine Pending (0.6-1.2) mg/dl Est Cr Clr Drug Dosing Pending ml/min Est GFR ( Amer) Pending Est GFR (Non-Af Amer) Pending BUN/Creatinine Ratio Pending (10-20) Glucose Pending (70-99) mg/dl Lactate (0.4-2.0) mmol/L Calcium Pending (8.5-10.1) mg/dl Total Bilirubin (0.2-1) mg/dl AST (15-37) U/L ALT (12-78) U/L Alkaline Phosphatase (45-117) U/L Total Protein (6.4-8.2) gm/dl Albumin (3.4-5.0) gm/dl Globulin (2.5-4.0) gm/dl Albumin/Globulin Ratio (0.9-2) Lipase (73-393) U/L Stl C. diff Tox B Gene Positive Cdiff Gene H (Neg) Stl C.difficile Tox A&B Positive Cdiff Toxin A* (Negative) 08/05/18 08/05/18 08/05/18 Range/Units 22:29 20:38 20:38 WBC 17.77 H (4.8-10.8) K/uL RBC 3.80 L (4.2-5.4) M/uL Hgb 13.1 (12.0-16.0) g/dL Hct 37.5 (37-47) % MCV 98.7 (80-100) fL MCH 34.5 H (25-34) pg MCHC 34.9 (32-36) g/dL RDW Std Deviation 49.6 H (36.4-46.3) fL RDW Coeff of Conner 14.0 (11.5-14.5) % Plt Count 203 (130-400) K/uL MPV 10.5 H (7.4-10.4) fL Immature Gran % (Auto) 0.3 % Neut % (Auto) 84.7 % Lymph % (Auto) 9.1 % [place] % (Auto) 5.6 % Eos % (Auto) 0.1 % Baso % (Auto) 0.2 % Immature Gran # (Auto) 0.05 H (0.00-0.02) K/uL Neut # (Auto) 15.07 H (1.4-6.5) K/uL Lymph # (Auto) 1.61 (1.2-3.4) K/uL [place] # (Auto) 1.00 H (0.11-0.59) K/uL Eos # (Auto) 0.01 (0-0.5) K/uL Baso # (Auto) 0.03 (0-0.2) K/uL Sodium 134 L (136-145) mmol/L Potassium 3.5 (3.5-5.1) mmol/L Chloride 100 (98-107) mmol/L Carbon Dioxide 23 (21-32) mmol/L Anion Gap 11.0 (3-11) BUN 15 (7-18) mg/dl Creatinine 0.83 (0.6-1.2) mg/dl Est Cr Clr Drug Dosing 45.0 ml/min Est GFR ( Amer) 80.5 Est GFR (Non-Af Amer) 69.5 BUN/Creatinine Ratio 17.5 (10-20) Glucose 95 (70-99) mg/dl Lactate 1.1 (0.4-2.0) mmol/L Calcium 8.9 (8.5-10.1) mg/dl Total Bilirubin 1.5 H (0.2-1) mg/dl AST 49 H (15-37) U/L ALT 26 (12-78) U/L Alkaline Phosphatase 158 H (45-117) U/L Total Protein 7.8 (6.4-8.2) gm/dl Albumin 3.5 (3.4-5.0) gm/dl Globulin 4.3 H (2.5-4.0) gm/dl Albumin/Globulin Ratio 0.8 L (0.9-2) Lipase 127 (73-393) U/L Stl C. diff Tox B Gene (Neg) Stl C.difficile Tox A&B (Negative) Diagnostic Findings Study: CT angiography of the abdomen and pelvis HISTORY: Stent placement. Aneurysm. Pain. Nausea. FINDINGS: Stable exam with no change compared to the prior study. Postoperative changes including stent placements of the distal thoracic aorta. Unchanged small endoleak as well as small chronic distal abdominal aorta dissection which has been previously described. This is unchanged. Liver spleen and pancreas appear uniform. Bowel pattern suggests a mild generalized nonobstructive ileus. No evidence for an obstructing lesion or mass. No free fluid within the abdominal pelvic or inguinal regions. Unchanged mild vaginal prolapse. Inguinal regions are unremarkable. IMPRESSION: 1. Stable postoperative changes including stent placement. This involves descending thoracic aorta as well as left renal artery. 2. Mild generalized nonobstructive ileus. 3. Stable small focal dissection distal abdominal aorta. This is stable compared to prior studies. 4. Generalized atherosclerotic change throughout the abdominal and pelvic arterial vasculature which has been described previously. 5. No evidence for arterial occlusion. US gallbladder CLINICAL HISTORY: Abdominal pain. COMPARISON STUDY: Right upper quadrant ultrasound July 23, 2018. CTA of the abdomen and pelvis August 05, 2018. FINDINGS: Coarsening of hepatic echotexture suggests cirrhosis. No hepatic lesions are identified. There is no biliary ductal dilatation. The gallbladder is moderately distended. Several gallstones are noted. Doppler wall thickening is noted. The wall measures 8 mm in thickness. The pancreas is obscured by o verlying bowel gas. There is no right hydronephrosis IMPRESSION: 1. Cholelithiasis, gallbladder wall thickening and gallbladder distention. These findings are suggestive of acute cholecystitis. 2. Coarsening of hepatic echotexture suggestive of cirrhosis. 3. No biliary ductal dilatation.
[2018-08-06] MEDS: LOSARTAN POTASSIUM 50 MG TAB PO SCH (08:41)
[2018-08-06] MEDS: FLUOXETINE HCL 20 MG CAP PO SCH (08:41)
[2018-08-06] MEDS: CARVEDILOL 6.25 MG TAB PO SCH ×2 (08:41→21:05)
[2018-08-06 08:50] LABS: BUN Creatinine Ratio 14.7 (10-20); Calcium 8.4 mg/dl (8.5-10.1); Creatinine Clr Calc Pharmacy 37.6 ml/min; Est GFR (African American) 67.5; Est GFR (Non-African American) 58.3; Potassium 4.3 mmol/L (3.5-5.1)
--- NOTE | 2018-08-06 11:31 | Family Medicine Progress Note ---
Date of Service August 06, 2018 Assessment & Plan (1) C. difficile diarrhea: positive testing today - started oral Vancomycin 125mg PO q6h (2) Acute cholecystitis: - [place] [facility], pending bed availability. - Transfer for CT guided percutaneous drainage as not a candidate for more invasive surgery because of hx of cirrhosis - Unasyn antibiotic coverage (3) Cirrhosis of liver: secondary to hemochromatosis (4) Aortic dissection: stable, chronic (5) Abdominal pain: see above Supervising Physician Co-Signing Physician Notes Attending attestation Pt seen and examined in concert with Dr. Nguyen. In agreement with the documented findings as noted in the resident documentation with any exceptions or additions as noted here. Patient reports mild improvement in diffuse abdominal pain focused in the RUQ. On examination, diffusely tender, nondistended, +ve verduzco. Acute cholecystitis - pending transfer [place] [facility] [place], transfer started by Dr. Mireles following surgical consultation/evaluation - per [facility] 1-2 days to placement. Continue Unasyn and monitor. NPO for now. IVF Acute C. diff infection - start vancomycin PO. Monitor BM Hypertension - continue losartan and carvedilol, watch for low BP and stop losartan if needed Else see resident documentation as noted. Daily updates for daughter Kylah @ [phone] including at time of transfer Alexei Olmstead notes that her RUQ abdominal pain is still present but improved. She does not note any current nausea or vomiting. She states she feels sleepy. She has had numerous episodes of diarrhea without blood. She is aware of the plan of care for transfer [place] [facility] [place] intervention. Physical Exam Constitutional: + ill appearing and cooperative Eyes: EOM intact bilaterally ENMT: external ear and nose normal, oropharynx normal Neck: normal visual inspection and trachea midline Respiratory: normal respiratory effort, lungs clear to auscultation Cardiovascular: Rate/Rhythm: regular rate and regular rhythm Extremities: no pedal edema Gastrointestinal (Abdomen): Percussion/Palpation: + abdomen tender (RUQ and upper abdomen and left abdomen without rebound) and abdomen soft; no guarding and abdomen not rigid Musculoskeletal: Head/Neck/Chest: normocephalic and head atraumatic Skin: no rashes, warm and dry Neurologic: moves all extremities; no meningeal signs and not confused sleepy but easily arousable Psychiatric: Orientation: alert (sleepy but becomes alert with stimulus but then becomes sleepy) and oriented x 3 Results & Data Vital Signs (Past 12 Hours) Vital Signs Temp Pulse Pulse Resp BP BP Pulse Ox 08/06/18 07:40 37.1 C 78 18 139/71 92 08/06/18 06:04 36.7 C 85 16 118/75 94 08/06/18 05:25 85 16 125/72 92 08/06/18 05:00 83 16 126/79 91 08/06/18 04:00 79 18 114/72 90 08/06/18 03:00 78 16 112/55 L 92 08/06/18 02:40 80 18 103/55 L 94 08/06/18 01:49 93 08/06/18 00:55 84 18 112/64 93 Laboratory Results Laboratory Results - last 24 hr 08/05/18 08/05/18 08/05/18 20:38 20:38 22:29 WBC 17.77 H RBC 3.80 L Hgb 13.1 Hct 37.5 MCV 98.7 MCH 34.5 H MCHC 34.9 RDW Std Deviation 49.6 H RDW Coeff of Conner 14.0 Plt Count 203 MPV 10.5 H Immature Gran % (Auto) 0.3 Neut % (Auto) 84.7 Lymph % (Auto) 9.1 [place] % (Auto) 5.6 Eos % (Auto) 0.1 Baso % (Auto) 0.2 Immature Gran # (Auto) 0.05 H Neut # (Auto) 15.07 H Lymph # (Auto) 1.61 [place] # (Auto) 1.00 H Eos # (Auto) 0.01 Baso # (Auto) 0.03 Sodium 134 L Potassium 3.5 Chloride 100 Carbon Dioxide 23 Anion Gap 11.0 BUN 15 Creatinine 0.83 Est Cr Clr Drug Dosing 45.0 Est GFR ( Amer) 80.5 Est GFR (Non-Af Amer) 69.5 BUN/Creatinine Ratio 17.5 Glucose 95 Lactate 1.1 Calcium 8.9 Total Bilirubin 1.5 H AST 49 H ALT 26 Alkaline Phosphatase 158 H Total Protein 7.8 Albumin 3.5 Globulin 4.3 H Albumin/Globulin Ratio 0.8 L Lipase 127 Stl C. diff Tox B Gene Stl C.difficile Tox A&B 08/06/18 08/06/1819 00:05 08:04 08:04 WBC 14.16 H RBC 3.59 L Hgb 12.4 Hct 35.7 L MCV 99.4 MCH 34.5 H MCHC 34.7 RDW Std Deviation 51.4 H RDW Coeff of Conner 14.2 Plt Count 165 MPV 10.6 H Immature Gran % (Auto) 0.3 Neut % (Auto) 81.2 Lymph % (Auto) 9.0 [place] % (Auto) 9.3 Eos % (Auto) 0.1 Baso % (Auto) 0.1 Immature Gran # (Auto) 0.04 H Neut # (Auto) 11.51 H Lymph # (Auto) 1.27 [place] # (Auto) 1.31 H Eos # (Auto) 0.01 Baso # (Auto) 0.02 Sodium 135 L Potassium 4.3 D Chloride 104 Carbon Dioxide 23 Anion Gap 9.0 BUN 14 Creatinine 0.96 Est Cr Clr Drug Dosing 37.6 Est GFR ( Amer) 67.5 Est GFR (Non-Af Amer) 58.3 BUN/Creatinine Ratio 14.7 Glucose 153 H Lactate Calcium 8.4 L Total Bilirubin AST ALT Alkaline Phosphatase Total Protein Albumin Globulin Albumin/Globulin Ratio Lipase Stl C. diff Tox B Gene Positive Cdiff Gene H Stl C.difficile Tox A&B Positive Cdiff Toxin A* Medications Administered Carvedilol (Coreg) 6.25 mg PO BID [facility] Stop: 09/05/18 08:59 Last Admin: 08/06/18 08:41 Dose: 6.25 mg Documented by: [id number] Fluoxetine HCl (Prozac) 20 mg PO QAM [facility] Stop: 09/05/18 08:59 Last Admin: 08/06/18 08:41 Dose: 20 mg Documented by: [id number] Dextrose/Lactated Ringer's (D5w And Lactated Ringers) 1,000 mls @ 125 mls/hr IV .Q8H [facility] Stop: 08/06/18 22:02 Last Admin: 08/06/18 06:28 Dose: 125 mls/hr Documented by: [id number] Ampicillin Sodium/Sulbactam Sodium 3,000 mg/ Sodium Chloride 108 mls @ 200 mls/hr IV Q6H [facility]; Protocol Stop: 08/16/18 05:59 Last Infusion: 08/06/18 07:17 Dose: 0 mls/hr Documented by: [id number] Admin: 08/06/18 06:40 Dose: 200 mls/hr Documented by: [id number] Losartan Potassium (Cozaar) 50 mg PO QAM [facility] Stop: 09/05/18 08:59 Last Admin: 08/06/18 08:41 Dose: 50 mg Documented by: [id number] Ranitidine HCl (Zantac) 150 mg PO BID [facility] Stop: 09/05/18 08:59 Last Admin: 08/06/18 08:41 Dose: 150 mg Documented by: [id number] PG Care Time/CCT Total # of Minutes Spent Total Time Spent with Patient: Total time spent is greater than 50% in coordination of care (as documented) at patient's floor/unit and/or counseling patient: Resident Activity Tracking Resident Involvement: Resident Care Provided Care Provided: Adult Hospital Medicine (1) Abdominal pain Abdominal location: unspecified location Qualified Code(s): R10.9 - Unspecified abdominal pain
[2018-08-06] MEDS: VANCOMYCIN HCL 125 MG/2.5ML SOLN PO SCH ×3 (12:19→23:34)
[2018-08-06] MEDS: RASPBERRY SYRUP 5 ML UDP PO SCH ×3 (12:19→23:34)
[2018-08-06] MEDS: MoRPHine SULFATE 4 MG/ML 1 ML CARP\\VIAL IV PRN (18:20)
[2018-08-07] MEDS: D5W AND LACTATED RINGERS 1,000 ML IV SCH ×3 (00:22→13:56)
[2018-08-07] MEDS: MoRPHine SULFATE 4 MG/ML 1 ML CARP\\VIAL IV PRN ×3 (02:19→19:54)
[2018-08-07] MEDS: VANCOMYCIN HCL 125 MG/2.5ML SOLN PO SCH ×3 (05:31→19:12)
[2018-08-07] MEDS: RASPBERRY SYRUP 5 ML UDP PO SCH ×3 (05:31→19:12)
[2018-08-07] MEDS: AMPICILLIN/SULBACTAM SOD 3,000 MG in 0.9 % SODIUM CHLORIDE 100 ML IV SCH ×3 (05:31→19:14)
[2018-08-07 06:42] LABS: Hematocrit (blood only) 30.8 % (37-47); Hemoglobin 10.6 g/dL (12.0-16.0); Mean Corpuscular Hgb Conc 34.4 g/dL (32-36); Mean Platelet Volume 9.8 fL (7.4-10.4); Platelet Count 134 K/uL (130-400); RDW Coefficient of Variation 14.1 % (11.5-14.5); RDW Standard Deviation 50.8 fL (36.4-46.3); Red Blood Count 3.11 M/uL (4.2-5.4); White Blood Count 11.72 K/uL (4.8-10.8)
--- NOTE | 2018-08-07 07:07 | Surgery Progress Note ---
Date of Service August 07, 2018 Assessment & Plan (1) Cholecystitis: This patient most likely has cholecystitis. Awaiting bed availability at [place] Continue antibiotics (2) C. difficile diarrhea: Oral vancomycin therapy instituted Subjective Pain persists, severity unchanged No nausea or vomiting Physical Exam Gastrointestinal (Abdomen): Inspection/Auscultation: abdomen not distended Percussion/Palpation: + abdomen tender (Right upper quadrant mostly but diffuse mild tenderness) and abdomen soft Results & Data Vital Signs (Past 12 Hours) Vital Signs Temp Pulse Pulse Resp BP BP Pulse Ox 08/07/18 00:50 38.1 C H 08/06/18 23:28 38.4 C H 84 18 149/78 H 93 08/06/18 21:03 89 153/77 H Laboratory Results 08/07/18 08/07/18 08/06/18 Range/Units 06:31 06:31 08:04 WBC 11.72 H (4.8-10.8) K/uL RBC 3.11 L (4.2-5.4) M/uL Hgb 10.6 L (12.0-16.0) g/dL Hct 30.8 L (37-47) % MCV 99.0 (80-100) fL MCH 34.1 H (25-34) pg MCHC 34.4 (32-36) g/dL RDW Std Deviation 50.8 H (36.4-46.3) fL RDW Coeff of Conner 14.1 (11.5-14.5) % Plt Count 134 (130-400) K/uL MPV 9.8 (7.4-10.4) fL Immature Gran % (Auto) % Neut % (Auto) % Lymph % (Auto) % [place] % (Auto) % Eos % (Auto) % Baso % (Auto) % Immature Gran # (Auto) (0.00-0.02) K/uL Neut # (Auto) (1.4-6.5) K/uL Lymph # (Auto) (1.2-3.4) K/uL [place] # (Auto) (0.11-0.59) K/uL Eos # (Auto) (0-0.5) K/uL Baso # (Auto) (0-0.2) K/uL Sodium Pending 135 L (136-145) mmol/L Potassium Pending 4.3 D (3.5-5.1) mmol/L Chloride Pending 104 (98-107) mmol/L Carbon Dioxide Pending 23 (21-32) mmol/L Anion Gap Pending 9.0 (3-11) BUN Pending 14 (7-18) mg/dl Creatinine Pending 0.96 (0.6-1.2) mg/dl Est Cr Clr Drug Dosing Pending 37.6 ml/min Est GFR ( Amer) Pending 67.5 Est GFR (Non-Af Amer) Pending 58.3 BUN/Creatinine Ratio Pending 14.7 (10-20) Glucose Pending 153 H (70-99) mg/dl Calcium Pending 8.4 L (8.5-10.1) mg/dl Total Bilirubin Pending AST Pending ALT Pending Alkaline Phosphatase Pending Total Protein Pending Albumin Pending Globulin Pending Albumin/Globulin Ratio Pending 08/06/18 Range/Units 08:04 WBC 14.16 H (4.8-10.8) K/uL RBC 3.59 L (4.2-5.4) M/uL Hgb 12.4 (12.0-16.0) g/dL Hct 35.7 L (37-47) % MCV 99.4 (80-100) fL MCH 34.5 H (25-34) pg MCHC 34.7 (32-36) g/dL RDW Std Deviation 51.4 H (36.4-46.3) fL RDW Coeff of Conn[place] 14.2 (11.5-14.5) % Plt Count 165 (130-400) K/uL MPV 10.6 H (7.4-10.4) fL Immature Gran % (Auto) 0.3 % Neut % (Auto) 81.2 % Lymph % (Auto) 9.0 % [place] % (Auto) 9.3 % Eos % (Auto) 0.1 % Baso % (Auto) 0.1 % Immature Gran # (Auto) 0.04 H (0.00-0.02) K/uL Neut # (Auto) 11.51 H (1.4-6.5) K/uL Lymph # (Auto) 1.27 (1.2-3.4) K/uL [place] # (Auto) 1.31 H (0.11-0.59) K/uL Eos # (Auto) 0.01 (0-0.5) K/uL Baso # (Auto) 0.02 (0-0.2) K/uL Sodium (136-145) mmol/L Potassium (3.5-5.1) mmol/L Chloride (98-107) mmol/L Carbon Dioxide (21-32) mmol/L Anion Gap (3-11) BUN (7-18) mg/dl Creatinine (0.6-1.2) mg/dl Est Cr Clr Drug Dosing ml/min Est GFR ( Amer) Est GFR (Non-Af Amer) BUN/Creatinine Ratio (10-20) Glucose (70-99) mg/dl Calcium (8.5-10.1) mg/dl Total Bilirubin AST ALT Alkaline Phosphatase Total Protein Albumin Globulin Albumin/Globulin Ratio
[2018-08-07 07:17] LABS: Albumin Level 2.6 gm/dl (3.4-5.0); BUN Creatinine Ratio 9.9 (10-20); Calcium 7.8 mg/dl (8.5-10.1); Creatinine Clr Calc Pharmacy 46.2 ml/min; Est GFR (African American) 86.8; Est GFR (Non-African American) 74.9; Potassium 3.3 mmol/L (3.5-5.1)
[2018-08-07 07:18] LABS: Albumin Globulin Ratio 0.7 (0.9-2); Bilirubin,Total 0.8 mg/dl (0.2-1); Globulin 3.5 gm/dl (2.5-4.0); Total Protein 6.1 gm/dl (6.4-8.2)
--- NOTE | 2018-08-07 08:32 | Family Medicine Progress Note ---
Date of Service August 07, 2018 Assessment & Plan (1) C. difficile diarrhea: positive testing on 08/06 for toxin and gene. - started oral Vancomycin 125mg PO q6h on 08/06. - Per review of old EMR, Had recent antibiotic use to treat same cholecystitis during recent hospitalization. (2) Acute cholecystitis: - transferring to [facility], patient is accepted, pending bed availability. It was noted on 08/06 that [facility] contacted us to let us know that unlikely to have opening today. Discussed option of possible intervention at [facility], and that I could call them for transfer with patient. But she declines and would prefer to wait for [facility] placement. - Transfer for CT guided percutaneous drainage as not a candidate for more invasive surgery because of hx of cirrhosis - Unasyn antibiotic coverage - Morphine is providing adequate pain relief. 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 Supervising Physician Co-Signing Physician Notes Attending attestation Pt seen and examined in concert with Dr. Nguyen. In agreement with the documented findings as noted in the resident documentation with any exceptions or additions as noted here. Diffuse abdominal pain which is stable from previous, now localised more in the RUQ. On examination, CTAB. Abd NT/ND BS+ve Acute cholecystitis - pending transfer to [facility] [place] drainage - Continue Unasyn and monitor. Sips/chips and mouthcare. IVF Acute C. diff infection - vancomycin PO. Improved frequency and severity of BM Hypertension - continue losartan and carvedilol, watch for low BP and stop losartan if needed Else see resident documentation as noted. Daily updates for daughter Kylah @ [phone] including at time of transfer Subjective Aysha notes that pain is persistant to upper abdomen and she describes localization as a band across upper abdomen. Location of pain is unchanged from onset and still wax and waning. She notes that pain is improved with Morphine IV analgesics. She is aware of pending bed availability at [facility]. She also notes that her frequency of BMs has decreased without any bleeding. It was reported overnight that she had fever. Physical Exam Constitutional: + ill appearing and cooperative Eyes: EOM intact bilaterally ENMT: external ear and nose normal, oropharynx normal Neck: normal visual inspection and trachea midline Respiratory: normal respiratory effort, lungs clear to auscultation Cardiovascular: Rate/Rhythm: regular rate and regular rhythm Extremities: no pedal edema Gastrointestinal (Abdomen): Percussion/Palpation: + abdomen tender (RUQ and upper abdomen and left abdomen without rebound) and abdomen soft; no guarding and abdomen not rigid Musculoskeletal: Head/Neck/Chest: normocephalic and head atraumatic Skin: no rashes, warm and dry Neurologic: moves all extremities; no meningeal signs and not confused Psychiatric: Orientation: alert (sleepy but becomes alert with stimulus but then becomes sleepy) and oriented x 3 Results & Data Vital Signs (Past 12 Hours) Vital Signs Temp Pulse Pulse Resp BP BP Pulse Ox 08/07/18 07:22 37.4 C 76 18 139/66 93 08/07/18 00:50 38.1 C H 08/06/18 23:28 38.4 C H 84 18 149/78 H 93 08/06/18 21:03 89 153/77 H Laboratory Results Laboratory Results - last 24 hr 08/06/18 08/07/18 08/07/18 08:04 06:31 06:31 WBC 11.72 H RBC 3.11 L Hgb 10.6 L Hct 30.8 L MCV 99.0 MCH 34.1 H MCHC 34.4 RDW Std Deviation 50.8 H RDW Coeff of Conner 14.1 Plt Count 134 MPV 9.8 Sodium 135 L 136 Potassium 4.3 D 3.3 L D Chloride 104 107 Carbon Dioxide 23 24 Anion Gap 9.0 5.0 BUN 14 8 D Creatinine 0.96 0.78 Est Cr Clr Drug Dosing 37.6 46.2 Est GFR ( Amer) 67.5 86.8 Est GFR (Non-Af Amer) 58.3 74.9 BUN/Creatinine Ratio 14.7 9.9 L Glucose 153 H 111 H Calcium 8.4 L 7.8 L Total Bilirubin 0.8 D AST 36 ALT 19 Alkaline Phosphatase 110 Total Protein 6.1 L D Albumin 2.6 L Globulin 3.5 Albumin/Globulin Ratio 0.7 L Medications Administered Carvedilol (Coreg) 6.25 mg PO BID [facility] Stop: 09/05/18 08:59 Last Admin: 08/06/18 21:05 Dose: 6.25 mg Documented by: [id number] Admin: 08/06/18 08:41 Dose: 6.25 mg Documented by: [id number] [facility]ac) [facility] Stop: 09/05/18 08:59 Last Admin: 08/06/18 08:41 Dose: 20 mg Documented by: [id number] Ampicillin Sodium/Sulbactam Sodium 3,000 mg/ Sodium Chloride 108 mls @ 200 mls/hr IV Q6H [facility]; Protocol Stop: 08/16/18 05:59 Last Infusion: 08/07/18 06:10 Dose: 0 mls/hr Documented by: [id number] Admin: 08/07/18 05:31 Dose: 200 mls/hr Documented by: [id number] Infusion: 08/07/18 00:21 Dose: 0 mls/hr Documented by: [id number] Admin: 08/06/18 23:34 Dose: 200 mls/hr Documented by: [id number] Infusion: 08/06/18 21:13 Dose: 0 mls/hr Documented by: [id number] Admin: 08/06/18 18:03 Dose: 200 mls/hr Documented by: [id number] Infusion: 08/06/18 12:16 Dose: 0 mls/hr Documented by: [id number] Admin: 08/06/18 11:43 Dose: 200 mls/hr Documented by: [id number] Infusion: 08/06/18 07:17 Dose: 0 mls/hr Documented by: [id number] Admin: 08/06/18 06:40 Dose: 200 mls/hr Documented by: [id number] Dextrose/Lactated Ringer's (D5w And Lactated Ringers) 1,000 mls @ 125 mls/hr IV .Q8H [facility] Stop: 09/05/18 21:59 Last Admin: 08/07/18 00:22 Dose: 125 mls/hr Documented by: [id number] Losartan Potassium (Cozaar) 50 mg PO [facility] Stop: 09/05/18 08:59 Last Admin: 08/06/18 08:41 Dose: 50 mg Documented by: [id number] Morphine Sulfate (Morphine Sulfate) 3 mg IV Q3H PRN PRN Reason: Pain Stop: 08/20/18 06:02 Last Admin: 08/07/18 05:30 Dose: 3 mg Documented by: [id number] Admin: 08/07/18 02:19 Dose: 3 mg Documented by: [id number] Admin: 08/06/18 18:20 Dose: 3 mg Documented by: [id number] Ranitidine HCl (Zantac) 150 mg PO BID [facility] Stop: 09/05/18 08:59 Last Admin: 08/06/18 21:05 Dose: 150 mg Documented by: [id number] Admin: 08/06/18 08:41 Dose: 150 mg Documented by: [id number] Raspberry (Raspberry) 5 ml PO Q6 [facility] Stop: 08/20/18 11:59 Last Admin: 08/07/18 05:31 Dose: 5 ml Documented by: [id number] Admin: 08/06/18 23:34 Dose: 5 ml Documented by: [id number] Admin: 08/06/18 18:02 Dose: 5 ml Documented by: [id number] Admin: 08/06/18 12:19 Dose: 5 ml Documented by: [id number] Vancomycin HCl (Vancomycin Hcl) 125 mg PO Q6 [facility] Stop: 08/16/18 11:59 Last Admin: 08/07/18 05:31 Dose: 125 mg Documented by: [id number] Admin: 08/06/18 23:34 Dose: 125 mg Documented by: [id number] Admin: 08/06/18 18:02 Dose: 125 mg Documented by: [id number] Admin: 08/06/18 12:19 Dose: 125 mg Documented by: [id number] PG Care Time/CCT Total # of Minutes Spent Total Time Spent with Patient: Total time spent is greater than 50% in coordination of care (as documented) at patient's floor/unit and/or counseling patient: Resident Activity Tracking Resident Involvement: Resident Care Provided Care Provided: Adult Hospital Medicine (1) Abdominal pain Abdominal location: unspecified location Qualified Code(s): R10.9 - Unspecified abdominal pain
[2018-08-07] MEDS: LOSARTAN POTASSIUM 50 MG TAB PO SCH (09:04)
[2018-08-07] MEDS: CARVEDILOL 6.25 MG TAB PO SCH ×2 (09:04→20:02)
[2018-08-07] MEDS: FLUOXETINE HCL 20 MG CAP PO SCH (09:04)
[2018-08-07] MEDS ORDERED: POTASSIUM CHLORIDE 20 MEQ TABCR PO ONE (12:15)
--- NOTE | 2018-08-07 19:47 | Discharge Summary ---
Date of Service August 07, 2018 Admission HPI Per Admitting Provider 73 y/o F Hx HTN, HLD, GERD, depression, cirrhosis, descending aortic dissection - repaired, presents with right upper quadrant abdominal pain and diarrhea for 2 days. Denies fevers or rigors. Findings on an US of the RUQ were consistent with cholecystitis. The pt was admitted with similar complaints and similar findings on a CT 07/22. She underwent a HIDA scan at the time which proved negative. She improved clinically, was placed on a course of antibiotics and scheduled for outpt follow-up at [facility]. After conferring with surgery, the ER attending had intended to transfer the pt to [facility]. They did not have any beds however, so she will be admitted for IV antibiotics and pain control in the interim. Initial labs are notable for leukocytosis and otherwise comparable to her baseline with mild LFT abnormalities. PMH: 1) Descending aortic dissection - repaired 2) Cirrhosis due to hemochromatosis 3) HTN 4) HLD - statin-intolerant 5) GERD Surgical: AAA repair at [facility] 2016 Social: Quit smoking 2017, occasional ETOH Family: Father due to "old age" 86 Mother due to cirrhosis Admission Exam Per Admitting Provider General: AAO x 3, no distress ENT: No erythema or exudates, no thrush Eyes: LATRELL, EOMI Head and neck: Normocephalic, atraumatic, No JVD, neck is supple. Chest/heart: Nontender, S1,2, RRR, no murmurs, no gallops Lungs: CTAB, no wheezing or crackles Abdomen: Very tender RUQ Neuro: AAO x 3, speech is clear, no unilateral weakness or loss of sensation, coordination intact Musculoskeletal: No joint inflammation, muscle tenderness, FROM Skin: No acute rashes or ulcers Extremities: No clubbing, cyanosis, edema Principal Diagnosis Acute cholecystitis Discharge Exam Constitutional + ill appearing and cooperative Eyes EOM intact bilaterally ENMT external ear and nose normal, oropharynx normal Neck normal visual inspection and trachea midline Respiratory normal respiratory effort, lungs clear to auscultation Cardiovascular Rate/Rhythm: regular rate and regular rhythm Extremities: no pedal edema Gastrointestinal (Abdomen) Percussion/Palpation: + abdomen tender (RUQ and upper abdomen and left abdomen without rebound) and abdomen soft; no guarding and abdomen not rigid Musculoskeletal Head/Neck/Chest: normocephalic and head atraumatic Skin no rashes, warm and dry Neurologic moves all extremities; no meningeal signs and not confused Psychiatric Orientation: alert (sleepy but becomes alert with stimulus but then becomes sleepy) and oriented x 3 Discharge Data Allergies Allergy/AdvReac Type Severity Reaction Status Date / Time pollen extracts Allergy Intermediate Swelling Verified 08/05/18 21:57 of throat [id number] Reductase AdvReac Severe Blistering Verified 08/05/18 21:57 Inhibitor of Mouth codeine AdvReac Intermediate vomiting Verified 08/05/18 21:57 Consultations 08/06/18 02:18 ED Decision to Admit Stat 08/06/18 06:34 Consult General Surgery Routine 08/07/18 17:35 Burn CD for patient Routine Ordered Studies 08/05/18 22:23 CT angio abdomen pelvis w con Stat IMPRESSION: 1. Stable postoperative changes including stent placement. This involves descending thoracic aorta as well as left renal artery. 2. Mild generalized nonobstructive ileus. 3. Stable small focal dissection distal abdominal aorta. This is stable compared to prior studies. 4. Generalized atherosclerotic change throughout the abdominal and pelvic arterial vasculature which has been described previously. 5. No evidence for arterial occlusion. 08/05/18 23:03 US gallbladder Urgent IMPRESSION: 1. Cholelithiasis, gallbladder wall thickening and gallbladder distention. These findings are suggestive of acute cholecystitis. 2. Coarsening of hepatic echotexture suggestive of cirrhosis. 3. No biliary ductal dilatation. Hospital Course (1) C. difficile diarrhea: positive testing on 08/06 for toxin and gene. - started oral Vancomycin 125mg PO q6h on 08/06. At time of transfer received total of 6 doses. - Per review of old EMR, Had recent antibiotic use (fluroquinolone and Flaygl) to treat same cholecystitis during recent hospitalization about two weeks ago. - frequency of diarrhea did significantly improve on morning of day of transfer. (2) Acute cholecystitis: - transferring to [facility] for higher level of care - Transfer for CT guided percutaneous drainage as not a candidate for more invasive surgery because of hx of cirrhosis - Unasyn 3gm q6h antibiotic coverage during admission at [facility], total of 7 doses at time of tentative transfer - Morphine is providing adequate pain relief. - She has been NPO anticipating transfer. 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 Total Time Total Time Spent Total Time Spent (In Minutes): 60 Total Time Includes: Examination of the Patient, Discharge Planning, Medication Reconciliation and Communication With Other Providers Discharge Plan Discharge Items Patient Disposition: Transfer Acute Care Hospital Reason For Visit: CHOLECYSTITIS Discharge Diagnosis: Cholecystitis Condition: Fair Discharge Goals: Decrease discomfort, Diagnostic testing and Therapeutic intervention Activity: Resume your previous activity Non-emergency contact: Primary Care Provider Call non-emergency contact if: you have any medication questions, your symptoms worsen, your pain is worsening and your temperature is above 100.5 Follow-up/Referrals: Beatris Noriega PA-C [Primary Care Provider] - Diet: Nothing by mouth Addtl Provider Instructions: You were admitted and treated for acute gallbladder inflammation. This illness required transfer to [facility] for percutaneous drainage of gallbladder infection as unable to perform surgery at [facility] because of complicated history of cirrhosis. You were also treated for Clostridium Difficile infection of the bowel causing diarrhea. You are being treated with Vancomycin oral antibiotic and will most likely finish treatment at [facility] or follow their direction on completion of treatment of oral antibiotics. Please follow up with your Primary Care doctor following discharge from [facility]. Prescriptions: New vancomycin 1,000 mg Recon Soln 125 mg PO Q6 8 Days Qty: 32 RF: 0 Continued losartan 50 mg tablet 50 mg PO QAM RF: 0 carvedilol 6.25 mg tablet 6.25 mg PO BID RF: 0 clopidogrel 75 mg tablet 75 mg PO DAILY RF: 0 acetaminophen [Tylenol Extra Strength] 500 mg Tablet 500 mg PO UD PRN (Reason: Pain) RF: 0 ranitidine HCl 150 mg tablet 150 mg PO BID RF: 0 fluoxetine 20 mg capsule 20 mg PO QAM RF: 0 Stand-Alone Forms: Discharge CDIFF, Call Back Authorization, [facility] Discharge Orders: Discharge Order (Routine); Ordered 08/07/18 Ordered By: Nick Nguyen Admission Data Admit Date/Time: 08/06/18 04:56 Attending Provider: Jamel Dubose Admit Provider: Tesfaye Mireles Primary Care Provider: Beatris Noriega Other Providers: KedemTesfaye Mark Service: Surgical Services Other Interventions: Discharge Summary Assessment (RN) Last Done: 08/07/18 19:35 DC Date/Time DO NOT enter until pt leaves facility: 08/07/18 21:00 Supervising Physician Co-Signing Physician Notes Attending attestation Pt seen and examined in concert with Dr. Nguyen. In agreement with the documented findings as noted in the resident documentation with any exceptions or additions as noted here. Diffuse abdominal pain which is stable from previous, now localised more in the RUQ. On examination, CTAB. Abd NT/ND BS+ve Acute cholecystitis - pending transfer to [facility] [place] drainage - Continue Unasyn and monitor. Sips/chips and mouthcare. IVF Acute C. diff infection - vancomycin PO. Improved frequency and severity of BM Hypertension - continue losartan and carvedilol, watch for low BP and stop losartan if needed Else see resident documentation as noted. Daily updates for daughter Kylah @ [phone] including at time of transfer Resident Activity Tracking Resident Involvement: Resident Care Provided Care Provided: Adult Hospital Medicine
== END 2018-08-07 21:00 | disposition short-term general hospital (02) | DRG 445 ==
LOC: ED 20:30 → 3N 08-06 04:56 → SUATTDRO 08-06 04:56 → 3N 08-06 05:25

== ENCOUNTER 2018-09-05 16:58 | Inpatient (IN) ==
[2018-09-05] MEDS ORDERED: SODIUM CHLORIDE 0.9% 1000ML 1,000 ML IV SCH (17:15)
[2018-09-05 17:31] LABS: Basophils # (auto) 0.02 K/uL (0-0.2); Basophils % (auto) 0.2 %; Eosinophils # (auto) 0.02 K/uL (0-0.5); Eosinophils % (auto) 0.2 %; Hematocrit (blood only) 35.5 % (37-47); Hemoglobin 12.4 g/dL (12.0-16.0); Immature Granulocytes # (auto) 0.03 K/uL (0.00-0.02); Immature Granulocytes % (auto) 0.2 %; Lymphocytes # (auto) 1.33 K/uL (1.2-3.4); Lymphocytes % (auto) 10.2 %; Mean Corpuscular Hgb Conc 34.9 g/dL (32-36); Mean Corpuscular Volume 99.7 fL (80-100); Mean Platelet Volume 10.8 fL (7.4-10.4); Monocytes # (auto) 1.03 K/uL (0.11-0.59); Monocytes % (auto) 7.9 %; Neutrophils % (auto) 81.3 %; Platelet Count 183 K/uL (130-400); RDW Coefficient of Variation 14.1 % (11.5-14.5); Red Blood Count 3.56 M/uL (4.2-5.4); White Blood Count 13.03 K/uL (4.8-10.8)
--- NOTE | 2018-09-05 17:36 | XRay Report ---
XR chest 1V portable CLINICAL HISTORY: weakness COMPARISON STUDY: 09/29/2017 FINDINGS: The heart is normal in size. There is resolution of the previously identified pulmonary daniella ma. There is aortic graft stent present. The right internal jugular central venous catheter has been removed. There is no focal pulmonary consolidation. There are subsegmental atelectatic changes at the lung bases. There are presumed postsurgical changes involving the distal right clavicle[ IMPRESSION: No active disease in the chest. Electronically signed by: Greyson Loyola M.D. 09/05/2018 5:34 PM
--- NOTE | 2018-09-05 17:37 | XRay Report ---
XR KUB/Abdomen 1 view CLINICAL HISTORY: pain and diarrhea COMPARISON STUDY: 09/28/2017 FINDINGS: There is no pathologic bowel dilatation. There are no calcifications suspicious for urinary tract calculi. Pelvic basin calcification statistically represent phleboliths. Multiple vascular kevin nts are visualized these include the distal aorta, left renal artery, and left common iliac artery. IMPRESSION: No evidence of pathologic bowel dilatation Electronically signed by: Greyson Loyola M.D. 09/05/2018 5:36 PM
[2018-09-05 17:45] LABS: INR 1.1 (0.9-1.1); Partial Thromboplastin Time 28.2 Seconds (21.0-31.0); Prothrombin Time 10.9 Seconds (9.0-12.0)
[2018-09-05 17:57] LABS: Alanine Aminotransferase 32 U/L (12-78); Albumin Level 3.6 gm/dl (3.4-5.0); Aspartate Aminotransferase 51 U/L (15-37); BUN Creatinine Ratio 19.4 (10-20); Blood Urea Nitrogen 14 mg/dl (7-18); Calcium 8.6 mg/dl (8.5-10.1); Carbon Dioxide 22 mmol/L (21-32); Chloride 104 mmol/L (98-107); Est GFR (Non-African American) 81.1; Glucose 93 mg/dl (70-99); Magnesium 1.6 mg/dl (1.8-2.4); Potassium 3.7 mmol/L (3.5-5.1); Sodium 136 mmol/L (136-145)
[2018-09-05] MEDS ORDERED: ACETAMINOPHEN 500 MG TAB PO STA (17:58)
[2018-09-05 18:07] LABS: Albumin Globulin Ratio 0.9 (0.9-2); Alkaline Phosphatase 198 U/L (45-117); Bilirubin,Total 1.7 mg/dl (0.2-1); Globulin 3.9 gm/dl (2.5-4.0); Total Protein 7.5 gm/dl (6.4-8.2); Troponin I < 0.015 ng/ml (0-0.045)
--- NOTE | 2018-09-05 18:29 | CT Scan Report ---
CT head/brain wo con CLINICAL HISTORY: Atypical headache COMPARISON STUDY: No previous studies for comparison. TECHNIQUE: Axial CT of the brain is performed from the vertex to the skull base. IV contrast was not administered for this examination. A dose lowering technique was utilized adhering to the principles of ALARA. CT DOSE: 537.48 mGy.cm FINDINGS: No intra or extra-axial mass lesions are visualized. There is no CT evidence of acute cortical infarc tion. There is no evidence of midline shift. There is no acute hemorrhage. No calvarial fractures ar e visualized. There are patchy white matter hypodensities likely on a small vessel basis. There is no evidence of pathologic ventricular dilatation. There is no evidence of acute sinusitis IMPRESSION: No acute intracranial findings Electronically signed by: Greyson Loyola M.D. 09/05/2018 6:27 PM
[2018-09-05] MEDS: MAGNESIUM SULFATE / D5W 1 GM/100 ML BAG IV SCH ×2 (19:26→20:53)
[2018-09-05] MEDS ORDERED: VANCOMYCIN HCL 125 MG/2.5ML SOLN PO STA (20:34)
[2018-09-05 21:05] LABS: Cdiff Antigen Positive; Cdiff Toxin A+B Positive Cdiff Toxin (Negative)
[2018-09-05] MEDS ORDERED: SODIUM CHLORIDE 0.9% 1000ML 1,000 ML IV ONE (21:08)
--- NOTE | 2018-09-05 21:35 | History & Physical Report ---
Date of Service September 05, 2018 Assessment & Plan (1) Clostridium difficile diarrhea: 73 y/o F Hx HTN, HLD, GERD, depression, cirrhosis, descending aortic dissection - repaired, presents with right upper quadrant abdominal pain and diarrhea for 2 days. Denies fevers or rigors. Findings on an US of the RUQ were consistent with cholecystitis. The pt was admitted with complaints of RUQ pain and diagnosed with likely cholecystitis 07/22. The surgical service had requested that she be transferred to [facility]. She eventually proceeded to [facility] but states that what she actually had was C diff rather than cholecystitis. She was treated with a course of Vanc and DCd. Over the past few days, she has developed LLQ abdominal pain, nausea, diarrhea and weakness. She also c/o of a global headache each she attributes to dehydration. The pt was tested for C diff in the ER and proved +. She states she feels to weak to go home safely, and is therefore admitted for hydration and antibiotics. As the infection has returned within 8 weeks, this constitutes treatment failure. Initial labs were notable for a mag of 1.6 and mild LFT abnormalities which represent her baseline. 1) C diff - placed on Dificid due to ease of compliance as apposed to a vanc taper. IVF, antiemetics as needed. 2) HTN - cont carvedilol 3) HLD - not currently treated as she is statin intolerant 4) GERD - cont ranitidine 5) Depression - cont fluoxetine. 6) Cirrhosis/hemochromatosis - outpt follow-up Full code - SCDs Total time for this consult including review of imaging, records - discussion with pt, daughter and ER attending - 37 min Present on Admission?: Yes History of Present Illness Primary Care Provider: Beatris Noriega PA-C 73 y/o F Hx HTN, HLD, GERD, depression, cirrhosis, descending aortic dissection - repaired, presents with right upper quadrant abdominal pain and diarrhea for 2 days. Denies fevers or rigors. Findings on an US of the RUQ were consistent with cholecystitis. The pt was admitted with complaints of RUQ pain and diagnosed with likely cholecystitis 07/22. The surgical service had requested that she be transferred to [facility]. She eventually proceeded to [facility] but states that what she actually had was C diff rather than cholecystitis. She was treated with a course of Vanc and DCd. Over the past few days, she has developed LLQ abdominal pain, nausea, diarrhea and weakness. She also c/o of a global headache each she attributes to dehydration. The pt was tested for C diff in the ER and proved +. She states she feels to weak to go home safely, and is therefore admitted for hydration and antibiotics. As the infection has returned within 8 weeks, this constitutes treatment failure. Initial labs were notable for a mag of 1.6 and mild LFT abnormalities which represent her baseline. PMH: 1) Descending aortic dissection - repaired 2) Cirrhosis due to hemochromatosis 3) HTN 4) HLD - statin-intolerant 5) GERD Surgical: AAA repair at [facility] 2017 Social: Quit smoking 2017, occasional ETOH Family: Father due to "old age" 86 Mother due to cirrhosis Allergies Allergy/AdvReac Type Severity Reaction Status Date / Time pollen extracts Allergy Intermediate Swelling Verified 09/05/18 17:47 of throat Snxvcth-Aaj-Orh Reductase AdvReac Severe Blistering Verified 09/05/18 17:49 Inhibitor of Mouth codeine AdvReac Intermediate vomiting Verified 09/05/18 17:47 Home Medications Home Medications Medication Instructions Recorded Confirmed Type acetaminophen [Tylenol Extra 500 mg PO DIRECTED PRN 07/22/18 09/05/18 History Strength] carvedilol 6.25 mg PO BID 07/22/18 09/05/18 History clopidogrel 75 mg PO DAILY 07/22/18 09/05/18 History fluoxetine 20 mg PO QAM 07/22/18 09/05/18 History losartan 50 mg PO QAM 07/22/18 09/05/18 History ranitidine HCl 150 mg PO BID 07/22/18 09/05/18 History folic acid 1 mg PO DAILY 09/05/18 09/05/18 History lactobacillus combination no.4 0 mmu cells PO DAILY 09/05/18 09/05/18 History [Probiotic] magnesium oxide 400 mg PO DAILY #30 tab 09/05/18 Rx vancomycin [Vancocin] 125 mg PO QID #68 cap 09/05/18 Rx Past Med/Surg History Medical History 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 Status post TEVAR 09/2017 from the mid thoracic aorta to the celiac artery. Also a 5 x 17-mm bare-metal stent placed in the left superior renal artery and an 8 x 37 bare-metal stent in the left iliac artery. Hypertension (Acute) Surgical History Aneurysm (Acute) History of abdominal aortic aneurysm (AAA) repair September of 2017 S/P appendectomy Family History Other Family history non-contributory Social History Preferred Language: Croatian Communication Ability: Effective Beliefs That Will Affect Care: None Current Living Situation: Spouse Current Living Situation Comment: at home with Feels Safe at Home: Yes Smoking Status: Former smoker Hx Alcohol Use: No Hx Substance Use: No Review of Systems Review of Systems: Gen: Denies fevers, night sweats - weakness and malaise r eported ENT: Denies congestion, throat pain, hearing loss Eyes: Denies acute visual changes CV: Denies CP, palpitations Pulmonary: Denies SOB, cough, wheezing GI: Diarrhea and LLQ abdominal pain Neuro: Denies acute or unilateral weakness, acute gait impairment, or acute visual changes + headache Musculoskeletal: Denies joint pain, inflammation Endocrine: Denies polydipsia, polyuria Skin: Denies acute rashes or ulcers Physical Exam Physical Exam: General: Lethargic, elderly, fem - AAO x 3, no distress ENT: No erythema or exudates, no thrush Eyes: LATRELL, EOMI Head and neck: Normocephalic, atraumatic, No JVD, neck is supple. Chest/heart: Nontender, S1,2, RRR, no murmurs, no gallops Lungs: CTAB, no wheezing or crackles Abdomen: Mildly tender in LLQ Neuro: AAO x 3, speech is clear, no unilateral weakness or loss of sensation, coordination intact Musculoskeletal: No joint inflammation, muscle tenderness, FROM Skin: No acute rashes or ulcers Extremities: No clubbing, cyanosis, edema Results & Data Vital Signs (Past 12 Hours) Vital Signs Temp Pulse Pulse Resp BP BP Pulse Ox 09/05/18 21:09 85 18 178/72 H 95 09/05/18 18:59 78 20 112/81 09/05/18 17:52 78 18 139/67 96 09/05/18 17:27 96 09/05/18 17:09 99.0 F 78 20 175/95 H 95 PG Care Time/CCT Total # of Minutes Spent Total Time Spent with Patient: Total time spent is greater than 50% in coordination of care (as documented) at patient's floor/unit and/or counseling patient:
--- NOTE | 2018-09-05 22:24 | Emergency Department Note ---
Entered by Conchita Franklin acting as a scribe for Jorge Rodriguez DO History of Present Illness General Chief complaint: Illness Stated complaint: HEADACHE, DIARRHEA, FEVER Source: patient History of Present Illness Provider complaint: Illness Onset (ago): week(s) Location: chest and abdomen Pain Consistency: + constant Maximum Pain Intensity: 3 Quality: + constant Associated symptoms: + chest pain and + other (Positive: abdominal pain, tired, diarrhea. Negative: trouble breathing.) The patient is a 73 year old female who presents to the ED with complaints of constant chest pain that started a few weeks ago. The patient reports she is always tired and in bed all day. She notes she had C.diff a few weeks ago. The patient states she had 4 episodes of diarrhea this morning. She notes she has abdominal pain and chest pain. The patient reports she cannot remember much. She notes she was placed on antibiotics but is not sure when she stopped. The patient denies trouble breathing. Home Medications Home Medications Medication Instructions Recorded Confirmed Type acetaminophen [Tylenol Extra 500 mg PO DIRECTED PRN 07/22/18 09/05/18 History Strength] carvedilol 6.25 mg PO BID 07/22/18 09/05/18 History clopidogrel 75 mg PO DAILY 07/22/18 09/05/18 History fluoxetine 20 mg PO QAM 07/22/18 09/05/18 History losartan 50 mg PO QAM 07/22/18 09/05/18 History ranitidine HCl 150 mg PO BID 07/22/18 09/05/18 History Probiotic 0 mmu cells PO DAILY 09/05/18 09/05/18 History folic acid 1 mg PO DAILY 09/05/18 09/05/18 History fidaxomicin [Dificid] 200 mg PO BID #17 tab 09/07/18 Rx Allergies Allergy/AdvReac Type Severity Reaction Status Date / Time pollen extracts Allergy Intermediate Swelling Verified 09/05/18 17:47 of throat Obatocw-Dnc-Jyz Reductase AdvReac Severe Blistering Verified 09/05/18 17:49 Inhibitor of Mouth codeine AdvReac Intermediate vomiting Verified 09/05/18 17:47 Past Med/Surg History Medical History 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 Status post TEVAR 09/2017 from the mid thoracic aorta to the celiac artery. Also a 5 x 17-mm bare-metal stent placed in the left superior renal artery and an 8 x 37 bare-metal stent in the left iliac artery. Hypertension (Acute) Surgical History Aneurysm (Acute) History of abdominal aortic aneurysm (AAA) repair September of 2017 S/P appendectomy Family History Other Family history non-contributory Social History Preferred Language: [place] Communication Ability: Effective Judicial Law Clerk Required: No Beliefs That Will Affect Care: None Current Living Situation: Spouse Current Living Situation Comment: Lives with Other Information That Helps Us Care for You: No Feels Safe at Home: Yes Smoking Status: Former smoker Tobacco Type: cigarettes Do You Dip or Chew Tobacco: No Smoking End Date: Quit 4 years ago Second Hand Exposure: No Tobacco Cessation Education Requested by Patient: No Hx Alcohol Use: Yes Hx Substance Use: No Review of Systems See HPI for pertinent positives & negatives. and A total of 10 systems reviewed and were otherwise negative Physical Exam Vital Signs Vital Signs - 24 hr 09/05/18 17:09 09/05/18 17:27 09/05/18 17:52 Temperature 37.2 C Temperature Source Oral Sepsis Recent Fever Within 48 Hours No Sepsis New/Unexplained Change in Mental Status No Sepsis Action Taken by Nursing No Action Required Pulse Rate 78 Pulse Rate [Apical] 78 Respiratory Rate 20 18 Respiratory Effort / Characteristics Non-Labored Spontaneous Respiratory Depth Normal Blood Pressure 175/95 H Blood Pressure [Right Arm] 139/67 Blood Pressure Mean 121 Blood Pressure Mean [Right Arm] 91 Pulse Oximetry 95 96 96 Oxygen Delivery Method Room Air Room Air Room Air 09/05/18 18:59 09/05/18 21:09 Temperature Temperature Source Sepsis Recent Fever Within 48 Hours Sepsis New/Unexplained Change in Mental Status Sepsis Action Taken by Nursing Pulse Rate Pulse Rate [Apical] 78 85 Respiratory Rate 20 18 Respiratory Effort / Characteristics Non-Labored Spontaneous Respiratory Depth Normal Blood Pressure Blood Pressure [Right Arm] 112/81 178/72 H Blood Pressure Mean Blood Pressure Mean [Right Arm] 91 107 Pulse Oximetry 95 Oxygen Delivery Method Room Air GENERAL: Patient is awake, alert. Seems somewhat listless appearing and uncomfortable. EYES: The conjunctivae are clear. The pupils are round and reactive. EARS, NOSE, MOUTH AND THROAT: The nose is without any evidence of any deformity. Mucous membranes are moist.Tongue is midline NECK: The neck is nontender and supple. RESPIRATORY: Normal respiratory effort is noted. There is no evidence of wheezing rhonchi or rales to auscultation. CARDIOVASCULAR: Regular rate and rhythm noted. There no murmurs rubs or gallops normal S1 normal S2 GASTROINTESTINAL: The abdomen is soft. Bowel sounds are present in all quadrants. Abdomen is nontender. MUSCULOSKELETAL/EXTREMITIES: There is no evidence of gross deformity. Full range of motion is noted in the hips and shoulders. SKIN: There is no obvious evidence of any rash. There are no petechiae, pallor or cyanosis noted. NEUROLOGIC: Patient is awake alert and oriented x3. Strength is symmetric. Patellar reflexes are 2+ bilaterally. Course 171: The patient was evaluated in room B8. A complete history and physical exam was performed. 2003: Upon reevaluation, the patient is resting comfortably. I discussed laboratory and radiographic results with her and her daughter. The patient verbalized agreement of the treatment plan. The patient will be evaluated for further management and care. 2138: I reviewed the patient's case with Dr. Mireles, [facility] Hospitalist. Administered Medications Discontinued Medications Acetaminophen (Tylenol) 1,000 mg PO NOW STA Stop: 09/05/18 17:59 Last Admin: 09/05/18 18:07 Dose: 1,000 mg Documented by: [id number] Acetaminophen (Tylenol) 500 mg PO Q4H PRN PRN Reason: Pain Stop: 10/06/18 00:30 Last Admin: 09/07/18 08:03 Dose: 500 mg Documented by: [id number] Admin: 09/06/18 20:23 Dose: 500 mg Documented by: [id number] Carvedilol (Coreg) 6.25 mg PO BID [facility] Stop: 10/06/18 08:59 Last Admin: 09/07/18 08:04 Dose: 6.25 mg Documented by: [id number] Admin: 09/06/18 20:24 Dose: 6.25 mg Documented by: [id number] Admin: 09/06/18 09:08 Dose: 6.25 mg Documented by: [id number] Clopidogrel Bisulfate (Plavix) 75 mg PO DAILY [facility] Stop: 10/06/18 08:59 Last Admin: 09/07/18 08:04 Dose: 75 mg Documented by: [id number] Admin: 09/06/18 09:08 Dose: 75 mg Documented by: [id number] Enoxaparin Sodium (Lovenox) 40 mg SQ QPM [facility] Stop: 10/06/18 20:59 Last Admin: 09/06/18 21:08 Dose: 40 mg Documented by: [id number] Fidaxomicin (Dificid) 200 mg PO BID [facility] Stop: 09/16/18 08:59 Last Admin: 09/07/18 09:55 Dose: 200 mg Documented by: [id number] Admin: 09/06/18 20:23 Dose: 200 mg Documented by: [id number] Admin: 09/06/18 12:09 Dose: 200 mg Documented by: [id number] Fluoxetine HCl (Prozac) 20 mg PO QAM [facility] Stop: 10/06/18 08:59 Last Admin: 09/07/18 08:04 Dose: 20 mg Documented by: [id number] Admin: 09/06/18 09:09 Dose: 20 mg Documented by: [id number] Folic Acid (Folvite) 1 mg PO DAILY [facility] Stop: 10/06/18 08:59 Last Admin: 09/07/18 08:04 Dose: 1 mg Documented by: [id number] Admin: 09/06/18 09:08 Dose: 1 mg Documented by: [id number] Sodium Chloride (Nss 1000ml) 1,000 mls @ 999 mls/hr IV .Q1H1M [facility] Stop: 09/05/18 18:15 Last Infusion: 09/05/18 19:29 Dose: 0 mls/hr Documented by: [id number] Admin: 09/05/18 17:58 Dose: 999 mls/hr Documented by: [id number] Magnesium Sulfate/Dextrose (Magnesium Sulfate / D5w) 1 gm in 100 mls @ 100 mls/hr IV Q1H [facility] Stop: 09/05/18 21:29 Last Infusion: 09/05/18 21:48 Dose: 0 mls/hr Documented by: [id number] Admin: 09/05/18 20:53 Dose: 100 mls/hr Documented by: [id number] Infusion: 09/05/18 20:52 Dose: 0 mls/hr Documented by: [id number] Admin: 09/05/18 19:26 Dose: 100 mls/hr Documented by: [id number] Sodium Chloride (Nss 1000ml) 1,000 mls @ 999 mls/hr IV .Q1H1M ONE Stop: 09/05/18 22:08 Last Infusion: 09/05/18 23:00 Dose: 0 mls/hr Documented by: [id number] Admin: 09/05/18 21:26 Dose: 999 mls/hr Documented by: [id number] Lactated Ringer's (Lr) 1,000 mls @ 125 mls/hr IV .Q8H [facility] Stop: 09/06/18 16:30 Last Infusion: 09/06/18 19:34 Dose: 0 mls/hr Documented by: [id number] Admin: 09/06/18 09:07 Dose: 125 mls/hr Documented by: [id number] Infusion: 09/06/18 08:44 Dose: 125 mls/hr Documented by: [id number] Admin: 09/06/18 00:44 Dose: 125 mls/hr Documented by: [id number] Lactated Ringer's (Lr) 1,000 mls @ 125 mls/hr IV .Q8H [facility] Stop: 10/06/18 19:59 Last Admin: 09/07/18 03:59 Dose: 125 mls/hr Documented by: [id number] Infusion: 09/07/18 03:59 Dose: 125 mls/hr Documented by: [id number] Admin: 09/06/18 20:30 Dose: 125 mls/hr Documented by: [id number] Losartan Potassium (Cozaar) 50 mg PO QAM [facility] Stop: 10/06/18 08:59 Last Admin: 09/07/18 08:04 Dose: 50 mg Documented by: [id number] Admin: 09/06/18 09:09 Dose: 50 mg Documented by: [id number] Potassium Chloride (Klor-Con M20) 20 meq PO Q2H [facility] Stop: 09/06/18 12:46 Last Admin: 09/06/18 14:56 Dose: 20 meq Documented by: [id number] Admin: 09/06/18 12:10 Dose: 20 meq Documented by: [id number] Admin: 09/06/18 09:14 Dose: 20 meq Documented by: [id number] Ranitidine HCl (Zantac) 150 mg PO BID [facility] Stop: 10/06/18 08:59 Last Admin: 09/07/18 08:04 Dose: 150 mg Documented by: [id number] Admin: 09/06/18 20:24 Dose: 150 mg Documented by: [id number] Admin: 09/06/18 09:08 Dose: 150 mg Documented by: [id number] Raspberry (Raspberry) 5 ml PO Q6 [facility] Stop: 09/20/18 00:00 Last Admin: 09/06/18 14:55 Dose: Not Given Documented by: [id number] Vancomycin HCl (Vancomycin Hcl) 250 mg PO NOW STA Stop: 09/05/18 20:35 Last Admin: 09/05/18 21:06 Dose: 250 mg Documented by: [id number] Medical Decision Making Differential Diagnosis Differential Diagnosis: Differential includes acute coronary syndrome, myocardial infarction, CVA, TIA, anemia, infection, pneumonia, UTI, pyelonephritis, poor nutrition, dehydration, electrolyte disturbance,hypoglycemia. Medical Records Attestation: I reviewed the patient's medical records. Home Medications Current Medication List: was personally reviewed by me Laboratory Data Attestation: I reviewed the patient's lab results. Result diagrams: 09/07/18 06:47 09/07/18 06:47 Lab Results 09/05/18 09/05/18 09/05/18 Range/Units 16:26 16:26 16:26 WBC 13.03 H (4.8-10.8) K/uL RBC 3.56 L (4.2-5.4) M/uL Hgb 12.4 (12.0-16.0) g/dL Hct 35.5 L (37-47) % MCV 99.7 (80-100) fL MCH 34.8 H (25-34) pg MCHC 34.9 (32-36) g/dL RDW Std Deviation 51.0 H (36.4-46.3) fL RDW Coeff of Conner 14.1 (11.5-14.5) % Plt Count 183 (130-400) K/uL MPV 10.8 H (7.4-10.4) fL Immature Gran % (Auto) 0.2 % Neut % (Auto) 81.3 % Lymph % (Auto) 10.2 % [place] % (Auto) 7.9 % Eos % (Auto) 0.2 % Baso % (Auto) 0.2 % Immature Gran # (Auto) 0.03 H (0.00-0.02) K/uL Neut # (Auto) 10.60 H (1.4-6.5) K/uL Lymph # (Auto) 1.33 (1.2-3.4) K/uL [place] # (Auto) 1.03 H (0.11-0.59) K/uL Eos # (Auto) 0.02 (0-0.5) K/uL Baso # (Auto) 0.02 (0-0.2) K/uL PT 10.9 (9.0-12.0) Seconds INR 1.1 (0.9-1.1) APTT 28.2 (21.0-31.0) Seconds PTT Ratio 1.0 Sodium 136 (136-145) mmol/L Potassium 3.7 (3.5-5.1) mmol/L Chloride 104 (98-107) mmol/L Carbon Dioxide 22 (21-32) mmol/L Anion Gap 10.0 (3-11) BUN 14 (7-18) mg/dl Creatinine 0.73 (0.6-1.2) mg/dl Est Cr Clr Drug Dosing 51.0 ml/min Est GFR ( Amer) 94.0 Est GFR (Non-Af Amer) 81.1 BUN/Creatinine Ratio 19.4 (10-20) Glucose 93 (70-99) mg/dl Calcium 8.6 (8.5-10.1) mg/dl Magnesium 1.6 L (1.8-2.4) mg/dl Total Bilirubin 1.7 H (0.2-1) mg/dl AST 51 H (15-37) U/L ALT 32 (12-78) U/L Alkaline Phosphatase 198 H (45-117) U/L Troponin I < 0.015 (0-0.045) ng/ml Total Protein 7.5 (6.4-8.2) gm/dl Albumin 3.6 (3.4-5.0) gm/dl Globulin 3.9 (2.5-4.0) gm/dl Albumin/Globulin Ratio 0.9 (0.9-2) TSH 0.524 (0.300-4.500) uIu/ml Stl C. diff Tox B Gene (Neg) Stl C.difficile Tox A&B (Negative) 09/05/18 Range/Units 19:20 WBC (4.8-10.8) K/uL RBC (4.2-5.4) M/uL Hgb (12.0-16.0) g/dL Hct (37-47) % MCV (80-100) fL MCH (25-34) pg MCHC (32-36) g/dL RDW Std Deviation (36.4-46.3) fL RDW Coeff of Conner (11.5-14.5) % Plt Count (130-400) K/uL MPV (7.4-10.4) fL Immature Gran % (Auto) % Neut % (Auto) % Lymph % (Auto) % [place] % (Auto) % Eos % (Auto) % Baso % (Auto) % Immature Gran # (Auto) (0.00-0.02) K/uL Neut # (Auto) (1.4-6.5) K/uL Lymph # (Auto) (1.2-3.4) K/uL [place] # (Auto) (0.11-0.59) K/uL Eos # (Auto) (0-0.5) K/uL Baso # (Auto) (0-0.2) K/uL PT (9.0-12.0) Seconds INR (0.9-1.1) APTT (21.0-31.0) Seconds PTT Ratio Sodium (136-145) mmol/L Potassium (3.5-5.1) mmol/L Chloride (98-107) mmol/L Carbon Dioxide (21-32) mmol/L Anion Gap (3-11) BUN (7-18) mg/dl Creatinine (0.6-1.2) mg/dl Est Cr Clr Drug Dosing ml/min Est GFR ( Amer) Est GFR (Non-Af Amer) BUN/Creatinine Ratio (10-20) Glucose (70-99) mg/dl Calcium (8.5-10.1) mg/dl Magnesium (1.8-2.4) mg/dl Total Bilirubin (0.2-1) mg/dl AST (15-37) U/L ALT (12-78) U/L Alkaline Phosphatase (45-117) U/L Troponin I (0-0.045) ng/ml Total Protein (6.4-8.2) gm/dl Albumin (3.4-5.0) gm/dl Globulin (2.5-4.0) gm/dl Albumin/Globulin Ratio (0.9-2) TSH (0.300-4.500) uIu/ml Stl C. diff Tox B Gene Positive Cdiff Gene H (Neg) Stl C.difficile Tox A&B Positive Cdiff Toxin A* (Negative) Imaging Data Radiologist's Impression: Radiology results as stated below per my review and the radiologist's interpretation: XR chest 1V portable CLINICAL HISTORY: weakness COMPARISON STUDY: 09/29/2017 FINDINGS: The heart is normal in size. There is resolution of the previously identified pulmonary edema. There is aortic graft stent present. The right internal jugular central venous catheter has been removed. There is no focal pulmonary consolidation. There are subsegmental atelectatic changes at the lung bases. There are presumed postsurgical changes involving the distal right clavicle[ IMPRESSION: No active disease in the chest. Electronically signed by: Greyson Loyola M.D. 09/05/2018 5:34 PM XR KUB/Abdomen 1 view CLINICAL HISTORY: pain and diarrhea COMPARISON STUDY: 09/28/2017 FINDINGS: There is no pathologic bowel dilatation. There are no calcifications suspicious for urinary tract calculi. Pelvic basin calcification statistically represent phleboliths. Multiple vascular stents are visualized these include the distal aorta, left renal artery, and left common iliac artery. IMPRESSION: No evidence of pathologic bowel dilatation Electronically signed by: Greyson Loyola M.D. 09/05/2018 5:[address] head/brain wo con CLINICAL HISTORY: Atypical headache COMPARISON STUDY: No previous studies for comparison. TECHNIQUE: Axial CT of the brain is performed from the vertex to the skull base. IV contrast was not administered for this examination. A dose lowering technique was utilized adhering to the principles of ALARA. CT DOSE: 537.48 mGy.cm FINDINGS: No intra or extra-axial mass lesions are visualized. There is no CT evidence of acute cortical infarction. There is no evidence of midline shift. There is no acute hemorrhage. No calvarial fractures are visualized. There are patchy white matter hypodensities likely on a small vessel basis. There is no evidence of pathologic ventricular dilatation. There is no evidence of acute sinusitis IMPRESSION: No acute intracranial findings Electronically signed by: Greyson Loyola M.D. 09/05/2018 6:27 PM ECG Data Attestation: I personally reviewed and interpreted this ECG as follows: Indication: chest pain Rate (beats per minute): 75 Rhythm: normal sinus Findings: + RBBB; no ectopy Comparison ECG Date: from (08/06/18) Change: no significant change Blood Pressure Blood Pressure Findings: Normal blood pressure Blood Pressure Disposition: did not require urgent referral MDM Narrative The patient is a 73-year-old female who presented to the emergency department for an evaluation of generalized weakness and diarrhea. The patient is a history of C. difficile colitis. The patient recently stopped antibiotics because she had a full course of oral vancomycin for her C. difficile colitis. The patient returns with worsening symptoms. She was treated with vancomycin as well as IV fluids in the emergency department. She was reevaluated multiple times. I discussed the patient's laboratory and radiographic studies with her and her family member. Initially she was thought to be a good candidate for outpatient management but the patient had very severe weakness and did not feel as though she could manage this at home. She had other episodes of bowel movements while she was here. For this reason I discussed her case with the on- call [facility] hospitalist. They have agreed to evaluate the patient in the emergency department for further management and disposition. Impression & Plan Weakness, Clostridium difficile diarrhea, Hypomagnesemia Discharge Plan Visit Data *Final* Discharge Date/Time: 09/06/18 00:06 Chief Complaint: Illness Stated Complaint: HEADACHE, DIARRHEA, FEVER ED Provider: Jorge Rodriguez Discharge Problem: Weakness, Clostridium difficile diarrhea, Hypomagnesemia Patient Disposition: Admitted As Inpatient Condition: Good Discharge Instructions Interventions: ED Discharge Assessment Last Done: 09/06/18 00:06 The scribe's documentation has been prepared under my direction and personally reviewed by me in its entirety. I confirm that the note above accurately reflects all work, treatment, procedures, and medical decision making performed by me.
[2018-09-06] MEDS ORDERED: RASPBERRY SYRUP 5 ML UDP PO SCH
[2018-09-06] MEDS ORDERED: TEMAZEPAM 7.5 MG CAPSULE PO PRN (00:31)
[2018-09-06] MEDS: LACTATED RINGER'S 1,000 ML IV SCH ×3 (00:44→20:30)
[2018-09-06 07:47] LABS: Hematocrit (blood only) 33.8 % (37-47); Hemoglobin 11.6 g/dL (12.0-16.0); Mean Corpuscular Hgb Conc 34.3 g/dL (32-36); Mean Corpuscular Volume 98.5 fL (80-100); Mean Platelet Volume 10.6 fL (7.4-10.4); Platelet Count 143 K/uL (130-400); RDW Coefficient of Variation 14.5 % (11.5-14.5); Red Blood Count 3.43 M/uL (4.2-5.4); White Blood Count 17.68 K/uL (4.8-10.8)
[2018-09-06 08:15] LABS: BUN Creatinine Ratio 15.5 (10-20); Basophils # (auto) 0.01 K/uL (0-0.2); Basophils % (auto) 0.1 %; Calcium 8.1 mg/dl (8.5-10.1); Est GFR (African American) 99.9; Est GFR (Non-African American) 86.2; Immature Granulocytes # (auto) 0.03 K/uL (0.00-0.02); Immature Granulocytes % (auto) 0.2 %; Lymphocytes # (auto) 1.17 K/uL (1.2-3.4); Lymphocytes % (auto) 6.6 %; Magnesium 1.8 mg/dl (1.8-2.4); Monocytes # (auto) 1.33 K/uL (0.11-0.59); Monocytes % (auto) 7.5 %; Neutrophils # (auto) 15.14 K/uL (1.4-6.5); Neutrophils % (auto) 85.6 %; Potassium 3.2 mmol/L (3.5-5.1)
--- NOTE | 2018-09-06 08:44 | Family Medicine Progress Note ---
Date of Service September 06, 2018 Assessment & Plan (1) Clostridium difficile diarrhea: 73 y/o F Hx HTN, HLD, GERD, depression, cirrhosis, descending aortic dissection - repaired, presents with right upper quadrant abdominal pain and diarrhea for 2 days. Denies fevers or rigors. Findings on an US of the RUQ were consistent with cholecystitis. The pt was admitted with complaints of RUQ pain and diagnosed with likely cholecystitis 07/22. The surgical service had requested that she be transferred to [place]. She eventually proceeded to [place] but states that what she actually had was C diff rather than cholecystitis. She was treated with a course of Vanc and DCd. Over the past few days, she has developed LLQ abdominal pain, nausea, diarrhea and weakness. She also c/o of a global headache each she attributes to dehydration. The pt was tested for C diff in the ER and proved +. She states she feels to weak to go home safely, and is therefore admitted for hydration and antibiotics. As the infection has returned within 8 weeks, this constitutes treatment failure. Initial labs were notable for a mag of 1.6 and mild LFT abnormalities which represent her baseline. 1) C diff - placed on Dificid due to ease of compliance as apposed to a vanc taper. -Tolerating well - IVF with LR @ 125 cc/hr - antiemetics as needed. -See subjective as bowel frequency subsides please encourage the patient to resume eating. -Explore why the patient does not like to eat 2) HTN - cont carvedilol 3) HLD - not currently treated as she is statin intolerant 4) GERD - cont ranitidine 5) Depression - cont fluoxetine. 6) Cirrhosis/hemochromatosis - outpt follow-up FENa: Heart healthy Code Status: Full code DVT PPX: Lovenox started 09/06/2089 Dispo: MedSurg Supervising Physician Co-Signing Physician Notes Attending attestation Pt seen and examined in concert with Dr. Huffman. In agreement with the documented findings as noted in the resident documentation with any exceptions or additions as noted here. Multiple liquid watery bowel movements today with persistent diffuse abdominal pain c/w complaint. Tolerating dificid. Significantly decreased appetite with chronic component. "Didn't eat from September to April last year". Diffusely TTP w/ +ve hyperactive BS C diff - continue dificid and IV hydration @ 125 cc and hour with close observation of fluid status to avoid overload. Else see resident documentation as noted. Subjective Patient sitting in bed this morning in distress secondary to abdominal pain and frequency of bowel movements. Patient reports interval history significant for frequent bowel movements and abdominal pain. For the most part patient has been lying in bed and moving back and forth from the bathroom. We advised the patient to do her best to keep up with fluid hydration, she could consider consuming Powerade or Gatorade or other electrolyte-containing drinks. Will maintain IVF fluids until her bowel movements low. Patient is not currently tolerating her diet secondary to abdominal discomfort, voiding on her own, frequently stooling, not sleeping secondary to above problems. Acute concerns at present are related to frequency of bowel movements, dehydration, abdominal pain, patient did not have any questions. In the interview the patient stated she does not like eating. She has not like eating for several years. Recently she is lost 80 to 40 pounds because she does not like eating. I am not sure if the patient is somewhat delirious from electrolyte disturbances and frequent diarrhea or if this is her true feelings. Would explore more as she feels better. Physical Exam Physical Exam: General: Elderly female in acute distress secondary to diffuse abdominal pain, and bowel movement frequency HEENT: Normocephalic atraumatic Neck: Normal to visual inspection, negative JVD Cardiac: Regular rate and rhythm, normal S1, normal S2, I did not appreciate any murmurs rubs or gallops, negative calf tenderness, negative pedal edema Respiratory: Clear to auscultation bilaterally I did not appreciate any wheezes rhonchi or rales GI: Soft, tender to palpation, hyperactive bowel sounds, no distention MSK: Moves all extremities Skin: No new rashes Neuro: Alert and oriented Psych: Cooperative Results & Data Vital Signs (Past 12 Hours) Vital Signs Temp Pulse Pulse Resp BP Pulse Ox 09/06/18 07:46 38.2 C H 82 16 163/87 H 94 09/06/18 00:20 37.4 C 78 18 166/85 H 91 09/06/18 00:00 73 20 139/67 94 09/05/18 23:20 79 18 96 09/05/18 21:09 85 18 178/72 H 95 Laboratory Results 09/06/18 09/06/18 09/06/18 Range/Units 17:55 07:09 07:09 WBC 17.68 H (4.8-10.8) K/uL RBC 3.43 L (4.2-5.4) M/uL Hgb 11.6 L (12.0-16.0) g/dL Hct 33.8 L (37-47) % MCV 98.5 (80-100) fL MCH 33.8 (25-34) pg MCHC 34.3 (32-36) g/dL RDW Std Deviation 52.0 H (36.4-46.3) fL RDW Coeff of Conner 14.5 (11.5-14.5) % Plt Count 143 (130-400) K/uL MPV 10.6 H (7.4-10.4) fL Immature Gran % (Auto) 0.2 % Neut % (Auto) 85.6 % Lymph % (Auto) 6.6 % [place] % (Auto) 7.5 % Eos % (Auto) 0.0 % Baso % (Auto) 0.1 % Immature Gran # (Auto) 0.03 H (0.00-0.02) K/uL Neut # (Auto) 15.14 H (1.4-6.5) K/uL Lymph # (Auto) 1.17 L (1.2-3.4) K/uL Mingo # (Auto) 1.33 H (0.11-0.59) K/uL Eos # (Auto) 0.00 (0-0.5) K/uL Baso # (Auto) 0.01 (0-0.2) K/uL Sodium 135 L (136-145) mmol/L Potassium 3.2 L (3.5-5.1) mmol/L Chloride 106 (98-107) mmol/L Carbon Dioxide 22 (21-32) mmol/L Anion Gap 7.0 (3-11) BUN 11 (7-18) mg/dl Creatinine 0.68 (0.6-1.2) mg/dl Est Cr Clr Drug Dosing 54.0 ml/min Est GFR ( Amer) 99.9 Est GFR (Non-Af Amer) 86.2 BUN/Creatinine Ratio 15.5 (10-20) Glucose 108 H (70-99) mg/dl Calcium 8.1 L (8.5-10.1) mg/dl Magnesium 1.8 (1.8-2.4) mg/dl Urine Color Yellow Urine Appearance Clear (Clear) Urine pH 6.5 (4.5-7.5) Ur Specific [place] 1.014 (1.000-1.030) Urine Protein Negative (Negative) Urine Glucose (UA) Negative (Negative) Urine Ketones Trace H (Negative) Urine Blood Trace H (Negative) Urine Nitrite Negative (Negative) Urine Bilirubin Negative (Negative) Urine Urobilinogen Negative (Negative) Ur Leukocyte Esterase 1+ H (Negative) Urine WBC (Auto) 10-30 H (0-5) /hpf Urine RBC (Auto) 5-10 H (0-4) /hpf U Hyaline Cast (Auto) 1-5 (0-5) /lpf U Epithel Cells (Auto) 10-20 H (0-5) /lpf Urine Bacteria (Auto) Negative (Negative) Stl C. diff Tox B Gene (Neg) Stl C.difficile Tox A&B (Negative) 09/05/18 Range/Units 19:20 WBC (4.8-10.8) K/uL RBC (4.2-5.4) M/uL Hgb (12.0-16.0) g/dL Hct (37-47) % MCV (80-100) fL MCH (25-34) pg MCHC (32-36) g/dL RDW Std Deviation (36.4-46.3) fL RDW Coeff of Conner (11.5-14.5) % Plt Count (130-400) K/uL MPV (7.4-10.4) fL Immature Gran % (Auto) % Neut % (Auto) % Lymph % (Auto) % Mingo % (Auto) % Eos % (Auto) % Baso % (Auto) % Immature Gran # (Auto) (0.00-0.02) K/uL Neut # (Auto) (1.4-6.5) K/uL Lymph # (Auto) (1.2-3.4) K/uL Mingo # (Auto) (0.11-0.59) K/uL Eos # (Auto) (0-0.5) K/uL Baso # (Auto) (0-0.2) K/uL Sodium (136-145) mmol/L Potassium (3.5-5.1) mmol/L Chloride (98-107) mmol/L Carbon Dioxide (21-32) mmol/L Anion Gap (3-11) BUN (7-18) mg/dl Creatinine (0.6-1.2) mg/dl Est Cr Clr Drug Dosing ml/min Est GFR ( Amer) Est GFR (Non-Af Amer) BUN/Creatinine Ratio (10-20) Glucose (70-99) mg/dl Calcium (8.5-10.1) mg/dl Magnesium (1.8-2.4) mg/dl Urine Color Urine Appearance (Clear) Urine pH (4.5-7.5) Ur Specific [place] (1.000-1.030) Urine Protein (Negative) Urine Glucose (UA) (Negative) Urine Ketones (Negative) Urine Blood (Negative) Urine Nitrite (Negative) Urine Bilirubin (Negative) Urine Urobilinogen (Negative) Ur Leukocyte Esterase (Negative) Urine WBC (Auto) (0-5) /hpf Urine RBC (Auto) (0-4) /hpf U Hyaline Cast (Auto) (0-5) /lpf U Epithel Cells (Auto) (0-5) /lpf Urine Bacteria (Auto) (Negative) Stl C. diff Tox B Gene Positive Cdiff Gene H (Neg) Stl C.difficile Tox A&B Positive Cdiff Toxin A* (Negative) Medications Administered Current Inpatient Medications Acetaminophen (Tylenol) 500 mg PO Q4H PRN PRN Reason: Pain Stop: 10/06/18 00:30 Carvedilol (Coreg) 6.25 mg PO BID [facility] Stop: 10/06/18 08:59 Last Admin: 09/06/18 09:08 Dose: 6.25 mg Documented by: Clopidogrel Bisulfate (Plavix) 75 mg PO DAILY [facility] Stop: 10/06/18 08:59 Last Admin: 09/06/18 09:08 Dose: 75 mg Documented by: Fidaxomicin (Dificid) 200 mg PO BID [facility] Stop: 09/16/18 08:59 Last Admin: 09/06/18 12:09 Dose: 200 mg Documented by: Fluoxetine HCl (Prozac) 20 mg PO QAM [facility] Stop: 10/06/18 08:59 Last Admin: 09/06/18 09:09 Dose: 20 mg Documented by: Folic Acid (Folvite) 1 mg PO DAILY [facility] Stop: 10/06/18 08:59 Last Admin: 09/06/18 09:08 Dose: 1 mg Documented by: Losartan Potassium (Cozaar) 50 mg PO QAM [facility] Stop: 10/06/18 08:59 Last Admin: 09/06/18 09:09 Dose: 50 mg Documented by: Ranitidine HCl (Zantac) 150 mg PO BID [facility] Stop: 10/06/18 08:59 Last Admin: 09/06/18 09:08 Dose: 150 mg Documented by: Temazepam (Restoril) 7.5 mg PO HSZ PRN PRN Reason: Insomnia Stop: 10/06/18 00:30 PG Care Time/CCT Total # of Minutes Spent Total Time Spent with Patient: Total time spent is greater than 50% in coordination of care (as documented) at patient's floor/unit and/or counseling patient: Resident Activity Tracking Resident Involvement: Resident Care Provided Care Provided: Adult Hospital Medicine
[2018-09-06] MEDS: CARVEDILOL 6.25 MG TAB PO SCH ×2 (09:08→20:24)
[2018-09-06] MEDS: CLOPIDOGREL BISULFATE 75 MG TAB PO SCH (09:08)
[2018-09-06] MEDS: FOLIC ACID 1 MG TAB PO SCH (09:08)
[2018-09-06] MEDS: LOSARTAN POTASSIUM 50 MG TAB PO SCH (09:09)
[2018-09-06] MEDS: FLUOXETINE HCL 20 MG CAP PO SCH (09:09)
[2018-09-06] MEDS: POTASSIUM CHLORIDE 20 MEQ TABCR PO SCH ×3 (09:14→14:56)
[2018-09-06] MEDS: FIDAXOMICIN 200 MG TAB PO SCH ×2 (12:09→20:23)
--- NOTE | 2018-09-06 18:10 | Discharge Summary ---
Date of Service September 06, 2018 Admission HPI Per Admitting Provider 73 y/o F Hx HTN, HLD, GERD, depression, cirrhosis, descending aortic dissection - repaired, presents with right upper quadrant abdominal pain and diarrhea for 2 days. Denies fevers or rigors. Findings on an US of the RUQ were consistent with cholecystitis. The pt was admitted with complaints of RUQ pain and diagnosed with likely cholecystitis 07/22. The surgical service had requested that she be transferred to [place]. She eventually proceeded to [place] but states that what she actually had was C diff rather than cholecystitis. She was treated with a course of Vanc and DCd. Over the past few days, she has developed LLQ abdominal pain, nausea, diarrhea and weakness. She also c/o of a global headache each she attributes to dehydration. The pt was tested for C diff in the ER and proved +. She states she feels to weak to go home safely, and is therefore admitted for hydration and antibiotics. As the infection has returned within 8 weeks, this constitutes treatment failure. Initial labs were notable for a mag of 1.6 and mild LFT abnormalities which represent her baseline. PMH: 1) Descending aortic dissection - repaired 2) Cirrhosis due to hemochromatosis 3) HTN 4) HLD - statin-intolerant 5) GERD Surgical: AAA repair at [place] 2016 Social: Quit smoking 2017, occasional ETOH Family: Father due to "old age" 86 Mother due to cirrhosis Admission Exam Per Admitting Provider General: Lethargic, elderly, fem - AAO x 3, no distress ENT: No erythema or exudates, no thrush Eyes: LATRELL, EOMI Head and neck: Normocephalic, atraumatic, No JVD, neck is supple. Chest/heart: Nontender, S1,2, RRR, no murmurs, no gallops Lungs: CTAB, no wheezing or crackles Abdomen: Mildly tender in LLQ Neuro: AAO x 3, speech is clear, no unilateral weakness or loss of sensation, coordination intact Musculoskeletal: No joint inflammation, muscle tenderness, FROM Skin: No acute rashes or ulcers Extremities: No clubbing, cyanosis, edema Principal Diagnosis MARTINEZ unclear etiology Discharge Exam General: elderly, fem - AAO x 3, no distress ENT: No erythema or exudates, no thrush Eyes: LATRELL, EOMI Head and neck: Normocephalic, atraumatic, No JVD, neck is supple. Chest/heart: Nontender, S1,2, RRR, no murmurs, no gallops Lungs: CTAB, no wheezing or crackles Abdomen: Mildly tender in LLQ Neuro: AAO x 3, speech is clear, no unilateral weakness or loss of sensation, coordination intact Musculoskeletal: No joint inflammation, muscle tenderness, FROM Skin: No acute rashes or ulcers Extremities: No clubbing, cyanosis, edema Discharge Data Allergies Allergy/AdvReac Type Severity Reaction Status Date / Time pollen extracts Allergy Intermediate Swelling Verified 09/05/18 17:47 of throat Odelfbs-Qsl-Khk Reductase AdvReac Severe Blistering Verified 09/05/18 17:49 Inhibitor of Mouth codeine AdvReac Intermediate vomiting Verified 09/05/18 17:47 Consultations 09/05/18 21:31 ED Decision to Admit Stat Ordered Studies 09/05/18 17:58 CT head/brain wo con Stat Hospital Course (1) Clostridium difficile diarrhea: 73 y/o F Hx HTN, HLD, GERD, depression, cirrhosis, descending aortic dissection - repaired, presents with right upper quadrant abdominal pain and diarrhea for 2 days. Denies fevers or rigors. Findings on an US of the RUQ were consistent with cholecystitis. The pt was admitted with complaints of RUQ pain and diagnosed with likely cholecystitis 07/22. The surgical service had requested that she be transferred to [place]. She eventually proceeded to [place] but states that what she actually had was C diff rather than cholecystitis. She was treated with a course of Vanc and DCd. Over the past few days, she has developed LLQ abdominal pain, nausea, diarrhea and weakness. She also c/o of a global headache each she attributes to dehydration. The pt was tested for C diff in the ER and proved +. She states she feels to weak to go home safely, and is therefore admitted for hydration and antibiotics. As the infection has returned within 8 weeks, this constitutes treatment failure. Initial labs were notable for a mag of 1.6 and mild LFT abnormalities which represent her baseline. 1) C diff - placed on Dificid due to ease of compliance as apposed to a vanc taper. IVF, antiemetics as needed. 2) HTN - cont carvedilol 3) HLD - not currently treated as she is statin intolerant 4) GERD - cont ranitidine 5) Depression - cont fluoxetine. 6) Cirrhosis/hemochromatosis - outpt follow-up Full code - SCDs Total time for this consult including review of imaging, records - discussion with pt, daughter and ER attending - 37 min Discharge Plan Discharge Items Reason For Visit: C DIFF RECURRENCE, DEHYDRATION Condition: Good Follow-up/Referrals: Beatris Noriega PA-C [Primary Care Provider] - 09/13/18 4:10 pm (Please, follow up with Beatris Norigea PA-C on SundaySeptember 13 at 4:10 pm. *If you need to change this appointment, call the office at [phone].) Prescriptions: New magnesium oxide 400 mg (241.3 mg magnesium) tablet 400 mg PO DAILY Qty: 30 RF: 0 vancomycin [Vancocin] 125 mg capsule 125 mg PO QID Qty: 68 RF: 0 No Action losartan 50 mg tablet 50 mg PO QAM RF: 0 carvedilol 6.25 mg tablet 6.25 mg PO BID RF: 0 clopidogrel 75 mg tablet 75 mg PO DAILY RF: 0 acetaminophen [Tylenol Extra Strength] 500 mg Tablet 500 mg PO DIRECTED PRN (Reason: Pain) RF: 0 ranitidine HCl 150 mg tablet 150 mg PO BID RF: 0 fluoxetine 20 mg capsule 20 mg PO QAM RF: 0 folic acid 1 mg tablet 1 mg PO DAILY RF: 0 Probiotic 3 billion cell Capsule PO DAILY RF: 0 Admission Data Admit Date/Time: 09/05/18 22:35 Attending Provider: Jamel Dubose Admit Provider: Tesfaye Mireles Primary Care Provider: Beatris Noriega Other Providers: Tesfaye Mireles Service: Medical
[2018-09-06 18:12] LABS: Appearance Urine Clear (Clear); Bacteria Urine Automated Negative (Negative); Bilirubin Urine Negative (Negative); Blood Urine Trace (Negative); Color Urine Yellow; Glucose Urine UA Negative (Negative); Ketones Urine Trace (Negative); Leukocyte Esterase Urine 1+ (Negative); Nitrite Urine Negative (Negative); Protein Urine Negative (Negative); Specific Gravity Urine 1.014 (1.000-1.030); Urobilinogen Urine Negative (Negative); pH Urine 6.5 (4.5-7.5)
[2018-09-06] MEDS: ACETAMINOPHEN 500 MG TAB PO PRN (20:23)
[2018-09-06] MEDS ORDERED: ENOXAPARIN INJ 40 MG/0.4 ML SYR SQ SCH (21:00)
[2018-09-07] MEDS: LACTATED RINGER'S 1,000 ML IV SCH (03:59)
[2018-09-07 07:32] LABS: Basophils # (auto) 0.02 K/uL (0-0.2); Basophils % (auto) 0.2 %; Eosinophils # (auto) 0.07 K/uL (0-0.5); Eosinophils % (auto) 0.6 %; Hematocrit (blood only) 32.9 % (37-47); Hemoglobin 11.1 g/dL (12.0-16.0); Immature Granulocytes # (auto) 0.05 K/uL (0.00-0.02); Immature Granulocytes % (auto) 0.4 %; Lymphocytes # (auto) 1.61 K/uL (1.2-3.4); Lymphocytes % (auto) 12.9 %; Mean Corpuscular Hgb Conc 33.7 g/dL (32-36); Mean Corpuscular Volume 99.4 fL (80-100); Monocytes # (auto) 1.31 K/uL (0.11-0.59); Monocytes % (auto) 10.5 %; Neutrophils # (auto) 9.43 K/uL (1.4-6.5); Neutrophils % (auto) 75.4 %; Platelet Count 145 K/uL (130-400); RDW Coefficient of Variation 14.8 % (11.5-14.5); RDW Standard Deviation 53.4 fL (36.4-46.3); Red Blood Count 3.31 M/uL (4.2-5.4); White Blood Count 12.49 K/uL (4.8-10.8)
[2018-09-07] MEDS: ACETAMINOPHEN 500 MG TAB PO PRN (08:03)
[2018-09-07] MEDS: LOSARTAN POTASSIUM 50 MG TAB PO SCH (08:04)
[2018-09-07] MEDS: FLUOXETINE HCL 20 MG CAP PO SCH (08:04)
[2018-09-07] MEDS: CLOPIDOGREL BISULFATE 75 MG TAB PO SCH (08:04)
[2018-09-07] MEDS: FOLIC ACID 1 MG TAB PO SCH (08:04)
[2018-09-07] MEDS: CARVEDILOL 6.25 MG TAB PO SCH (08:04)
[2018-09-07 08:05] LABS: Albumin Globulin Ratio 0.8 (0.9-2); Albumin Level 2.8 gm/dl (3.4-5.0); BUN Creatinine Ratio 12.9 (10-20); Bilirubin,Total 0.8 mg/dl (0.2-1); Calcium 8.1 mg/dl (8.5-10.1); Creatinine Clr Calc Pharmacy 54.8 ml/min; Est GFR (African American) 100.4; Est GFR (Non-African American) 86.6; Globulin 3.7 gm/dl (2.5-4.0); Potassium 3.9 mmol/L (3.5-5.1); Total Protein 6.5 gm/dl (6.4-8.2)
[2018-09-07] MEDS: FIDAXOMICIN 200 MG TAB PO SCH (09:55)
--- NOTE | 2018-09-07 11:08 | Discharge Summary ---
Date of Service September 07, 2018 Admission HPI Per Admitting Provider Primary Care Provider: Beatris Noriega PA-C 73 y/o F Hx HTN, HLD, GERD, depression, cirrhosis, descending aortic dissection - repaired, presents with right upper quadrant abdominal pain and diarrhea for 2 days. Denies fevers or rigors. Findings on an US of the RUQ were consistent with cholecystitis. The pt was admitted with complaints of RUQ pain and diagnosed with likely cholecystitis 07/22. The surgical service had requested that she be transferred to [place]. She eventually proceeded to [place] but states that what she actually had was C diff rather than cholecystitis. She was treated with a course of Vanc and DCd. Over the past few days, she has developed LLQ abdominal pain, nausea, diarrhea and weakness. She also c/o of a global headache each she attributes to dehydration. The pt was tested for C diff in the ER and proved +. She states she feels to weak to go home safely, and is therefore admitted for hydration and antibiotics. As the infection has returned within 8 weeks, this constitutes treatment failure. Initial labs were notable for a mag of 1.6 and mild LFT abnormalities which represent her baseline. PMH: 1) Descending aortic dissection - repaired 2) Cirrhosis due to hemochromatosis 3) HTN 4) HLD - statin-intolerant 5) GERD Surgical: AAA repair at [place] 2016 Social: Quit smoking 2017, occasional ETOH Family: Father due to "old age" 86 Mother due to cirrhosis Admission Exam Per Admitting Provider General: Lethargic, elderly, fem - AAO x 3, no distress ENT: No erythema or exudates, no thrush Eyes: LATRELL, EOMI Head and neck: Normocephalic, atraumatic, No JVD, neck is supple. Chest/heart: Nontender, S1,2, RRR, no murmurs, no gallops Lungs: CTAB, no wheezing or crackles Abdomen: Mildly tender in LLQ Neuro: AAO x 3, speech is clear, no unilateral weakness or loss of sensation, coordination intact Musculoskeletal: No joint inflammation, muscle tenderness, FROM Skin: No acute rashes or ulcers Extremities: No clubbing, cyanosis, edema Principal Diagnosis Recurrent C. Diff Discharge Exam General: In NAD CV: RRR, no m/r/g Pulm: CTAB, equal breath sounds bilaterally Abdomen: +BS, non-distended, non-tender to palpation in all quadrants LE: No LE edema or calf TTP Discharge Data Allergies Allergy/AdvReac Type Severity Reaction Status Date / Time pollen extracts Allergy Intermediate Swelling Verified 09/05/18 17:47 of throat Nnxvwno-Wpq-Srq Reductase AdvReac Severe Blistering Verified 09/05/18 17:49 Inhibitor of Mouth codeine AdvReac Intermediate vomiting Verified 09/05/18 17:47 Consultations 09/05/18 21:31 ED Decision to Admit Stat Ordered Studies 09/05/18 17:58 CT head/brain wo con Stat Hospital Course (1) Clostridium difficile diarrhea: 73 y/o F Hx HTN, HLD, GERD, depression, cirrhosis, descending aortic dissection - repaired, presented with right upper quadrant abdominal pain and diarrhea for 2 days. Denied fevers or rigors. Of noteL pt was admitted on 07.22.18 with complaints of RUQ pain and diagnosed with likely cholecystitis per surgical service was transferred to [place] where found to have C diff rather than cholecystitis and treated with vancomycin. Over the past few days, she has developed LLQ abdominal pain, nausea, diarrhea and weakness. The pt was tested for C diff in the ER and proved +. Given infection returned within 8 weeks, this constitutes treatment failure. Patient was thus switched and treated with Dificid 1) C diff - On dificid - discharged with another 8.5 day course of dificid 200mg BID 2) HTN - continued home carvedilol 3) HLD - not currently treated as she is statin intolerant 4) GERD - continued home ranitidine 5) Depression - continued home fluoxetine. 6) Cirrhosis/hemochromatosis - outpt follow-up Code Status: Full code DVT PPX: Lovenox Total Time Total Time Spent Total Time Spent (In Minutes): <60 Discharge Plan Discharge Items Patient Disposition: Home - Self-Care Reason For Visit: C DIFF RECURRENCE, DEHYDRATION Discharge Diagnosis: Recurrent C. Diff infection Condition: Good Discharge Goals: Decrease discomfort, Diagnostic testing and Therapeutic i ntervention Activity: Resume your previous activity Non-emergency contact: Primary Care Provider Call non-emergency contact if: you have any medication questions, your symptoms worsen, your pain is concerning for you and your temperature is above 100.5 Follow-up/Referrals: Beatris Noriega PA-C [Primary Care Provider] - 09/13/18 4:10 pm (Please, follow up with Beatris Noriega PA-C on SundaySeptember 13 at 4:10 pm. *If you need to change this appointment, call the office at [phone].) Diet: Heart Healthy Addtl Provider Instructions: Ms. Perry you were admitted for concern of diarrhea. You were found to have C. diff infection which responded well to a different medication you received called, Dificid. Your diarrhea and symptoms improved prior to discharge. You need to continue taking Dificid twice a day until you finish your prescribed course. Your first dose will be this evening. Then starting tomorrow you will be taking it twice a day (morning and evening) for another 8 days. A prescription has been sent to your pharmacy ([facility] in [place]). Please pick it up on your way home. Continue taking your remaining home medications as prescribed prior to your hospitalization. -Take Dificid twice a day for another 8.5 days (first dose will be this evening) -Continue eating yogurt every day and/or take your probiotic -Follow up with your primary care doctor on 09/09/18 and discuss seeing a cold type artist as well for help in boosting your appetite and getting adequate nutrition -See your primary care doctor or return to the hospital if your symptoms worsen or you have any other concerning symptoms Prescriptions: New Dificid 200 mg Tablet 200 mg PO BID Qty: 17 RF: 0 Continued losartan 50 mg tablet 50 mg PO QAM RF: 0 carvedilol 6.25 mg tablet 6.25 mg PO BID RF: 0 clopidogrel 75 mg tablet 75 mg PO DAILY RF: 0 acetaminophen [Tylenol Extra Strength] 500 mg Tablet 500 mg PO DIRECTED PRN (Reason: Pain) RF: 0 ranitidine HCl 150 mg tablet 150 mg PO BID RF: 0 fluoxetine 20 mg capsule 20 mg PO QAM RF: 0 folic acid 1 mg tablet 1 mg PO DAILY RF: 0 Probiotic 3 billion cell Capsule PO DAILY RF: 0 Stand-Alone Forms: [facility] Discharge Orders: Discharge Order (Routine); Ordered 09/07/18 Ordered By: Nicholas Segura Admission Data Admit Date/Time: 09/05/18 22:35 Attending Provider: Jamel Dubose Admit Provider: Tesfaye Mireles Primary Care Provider: Beatris Noriega Other Providers: Tesfaye Mireles Service: Medical Other Interventions: Discharge Summary Assessment (RN) Last Done: 09/07/18 11:45 DC Date/Time DO NOT enter until pt leaves facility: 09/07/18 12:39 Supervising Physician Co-Signing Physician Notes Attending attestation Pt seen and examined in concert with Dr. Segura. In agreement with the documented findings as noted in the resident documentation with any exceptions or additions as noted here. Significant improvement in abdominal pain to nearly resolved and bowel movements decreased to 1 in the last 8 hours. On examination, S1/S2 nl, CTAB. Abd NT/ND, BS +ve. C. difficile recurrence - complete course of Dificid. Follow with PCP. Counseling re: contagiousness reviewed. Else see resident documentation as noted. Resident Activity Tracking Resident Involvement: Resident Care Provided Care Provided: Adult Hospital Medicine
== END 2018-09-07 12:39 | disposition home or self-care (01) | DRG 373 ==
LOC: ED 16:58 → 3W 22:35 → SUATTDRO 22:35 → 3W 09-06 00:06

== ENCOUNTER 2019-09-12 17:27 | Inpatient (IN) ==
[2019-09-12] MEDS ORDERED: SODIUM CHLORIDE 0.9% 500 ML IV SCH (19:00)
[2019-09-12] MEDS ORDERED: SODIUM CHLORIDE 0.9% 1000ML 1,000 ML IV STA (19:30)
[2019-09-12] MEDS ORDERED: ONDANSETRON INJ 2 MG/ML 2 ML VIAL IV STA (19:30)
[2019-09-12] MEDS ORDERED: MoRPHine SULFATE 4 MG/ML 1 ML CARP\\VIAL IV PRN (19:30)
--- NOTE | 2019-09-12 19:38 | Emergency Department Note ---
Impression & Plan Pancolitis, Left sided abdominal pain, Diarrhea, Leukocytosis ED Provider Note INFORMANT: [Patient] daughter ED PROVIDER(S): Shaquille Arreola MD CHIEF COMPLAINT: Diarrhea PLAN: Disposition: Admitted Condition: [Good] MEDICAL DECISION MAKING: Patient presented with complaints of diarrhea. She also noted moderate abdominal pain. She had a fever as well. Blood work, stool studies and urinalysis ordered. Chest x-ray and CT imaging ordered as well. The patient was given normal saline hydration, IV morphine, and IV Zofran for symptom control. The patient was feeling better on reassessment. She has significant leukocytosis on CBC. Chemistry panel was unremarkable. Patient has a normal lactate. Her CT imaging revealed a significant pancolitis. Stool studies were sent. The C. difficile gene PCR was positive. I did discuss the case with Dr. Jasmine of gastroenterology. Given her history, her leukocytosis and CT imaging findings, and need for Dificid in the past we elected to start that this evening and consult internal medicine for admission. I did discuss the case with Dr. Giovanni Siddiqui of the hospitalist service. The patient's C. difficile toxin test came back negative. Dr. Siddiqui and I discussed this and we were both concerned given the patient's history, pancolitis, and examination that this may be a false negative. We elected to continue the treatment as previouisly discussed with GI. Triage Nursing notes reviewed and agree them. [Additional history obtained from] patient's daughter. Patient's daughter notes that she was previously treated with vancomycin and that failed requiring Dificid treatment. Vital Signs: reviewed and remarkable for [no significant abnormalities] Differential diagnosis: Etiologies such as C. difficile colitis, gastroenteritis, food borne illness, infections, appendicitis, diverticulitis, otitis inflammatory bowel disease, GI bleed, biliary pathology, as well as others were entertained. Diagnostics interpreted by me: Cardiac Monitoring: Cardiac monitoring ordered by me: The patient was placed on continuous cardiac monitoring and observed. It revealed a normal sinus rhythm at 78 beats per minute without ectopy or evidence of dysrhythmia. Imaging studies: CT imaging revealed a pancolitis. I refer you to the EMR for further details. Consultation(s): [facility] gastroenterology [facility] internal medicine hospitalist service HPI: The patient is a 74 year old female who presents to the Emergency Room with complaints of diarrhea. This started 5 days ago and is worsening. The patient also notes the following associated symptoms, feeling dehydrated, poor appetite, nausea, midline and left-sided abdominal pain that is a 6/10, pain radiating to her back, cough, fevers, and chills. The patient has found no relieving fac tors. Current pain is rated as 6/10. Patient states that she had a eye surgery done recently and was placed on cephalexin. After the cephalexin prescription she developed diarrhea at the beginning of this week. She has a history of C. difficile colitis. She is concerned as this feels similar. Pt denies LOC, headache, fevers, chills, diaphoresis, visual changes, neck pain, chest pain, breathing difficulties, nausea, vomiting, abdominal pain, back pain, melena, hematochezia, urinary symptoms, numbness, weakness, lymphadenopathy, rash, or other complaints. ROS: See above HPI for pertinent positives & negatives. A total of [10] systems reviewed and were otherwise negative. PAST MEDICAL HISTORY:[See Below] C. difficile colitis, aortic dissection, hemochromatosis PAST SURGICAL HISTORY:[See Below]stenting of aortic dissection FAMILY HISTORY:[See Below] SOCIAL HISTORY:[See Below] no tobacco HOME MEDICATIONS:[See Below] ALLERGIES:[See Below] VITALS:[See Below] PHYSICAL EXAMINATION: GENERAL: Awake, alert, well-appearing, in no distress HENT: Normocephalic, atraumatic. Oropharynx unremarkable except for dry mucous membranes. EYES: Normal conjunctiva. Sclera non-icteric. NECK: Inspection normal. Non-tender. Supple. No nuchal rigidity. FROM. No masses. RESPIRATORY: Clear to auscultation. No wheezes. No rales. Normal respiratory effort. CARDIAC: Normal rate. Normal rhythm. No murmurs. No rubs. Extremities warm and well perfused. Pulses equal. No JVD. GI: Soft, non-distended. Midline and left-sided tenderness to palpation. No re bound or guarding. No masses. RECTAL: Deferred. MUSCULOSKELETAL: Atraumatic. Chest examination reveals no tenderness. The back is symmetrical on inspection without obvious abnormality. There is left CVA tenderness to palpation. No joint edema. LOWER EXTREMITIES: Calves are equal size bilaterally and non-tender. No edema. No discoloration. NEURO: Normal sensorium. No sensory or motor deficits noted. SKIN: No rash or jaundice noted. ED COURSE: [Critical Care:] [None] Shaquille Arreola MD Past Med/Surg History Social History Smoking Status: Former smoker Second Hand Exposure: No; Hx Alcohol Use: Yes Alcohol type: wine Hx Substance Use: No Preferred Language: [place] Communication Ability: Effective Hotel Custodian Required: No Beliefs That Will Affect Care: None Current Living Situation: Spouse Current Living Situation Comment: Lives with Feels Safe at Home: Yes Allergies Allergies Allergy/AdvReac Type Severity Reaction Status Date / Time pollen extracts Allergy Intermediate Swelling Verified 09/12/19 22:48 of throat codeine AdvReac Intermediate vomiting Verified 09/12/19 22:48 [id number] Reductase AdvReac Intermediate MUSCLE AND Verified 09/12/19 22:48 Inhibitor BODY ACHES Home Meds Home Medications Medication Instructions Recorded Confirmed acetaminophen [Tylenol Extra 500 mg PO DIRECTED PRN 07/22/18 09/12/19 Strength] carvedilol 6.25 mg PO BID 07/22/18 09/12/19 clopidogrel 75 mg PO QAM 07/22/18 09/12/19 fluoxetine 20 mg PO QAM 07/22/18 09/12/19 losartan 50 mg PO QAM 07/22/18 09/12/19 folic acid 1 mg PO QAM 09/05/18 09/12/19 Probiotic 3,000 mmu cells PO UD 12/20/18 09/12/19 pantoprazole 40 mg PO QAM 12/20/18 09/12/19 Results & Data (ED) Vital Signs Vital Signs - 24 hr 09/12/19 17:42 09/12/19 20:00 09/12/19 20:01 Temperature 37.3 C Temperature Source Oral Pulse Rate 73 77 Pulse Rate [Apical] Pulse Rate from SpO2 Sensor 76 Pulse Rhythm Regular Pulse Rhythm [Apical] Pulse Strength Normal Pulse Strength [Apical] Respiratory Rate 18 18 Respiratory Effort / Characteristics Non-Labored Spontaneous Respiratory Depth Normal Respiratory Pattern Regular Blood Pressure 138/71 115/64 Blood Pressure [Left Arm] Blood Pressure Mean 93 74 Blood Pressure Mean [Left Arm] Blood Pressure Position Sitting Blood Pressure Position [Left Arm] Pulse Oximetry 98 95 96 Oxygen Delivery Method Room Air Room Air Sepsis Recent Fever Within 48 Hours No Sepsis New/Unexplained Change in Mental Status No Sepsis Action Taken by Nursing No Action Required 09/12/19 20:31 09/12/19 21:49 09/12/19 23:54 Temperature Temperature Source Pulse Rate 79 87 Pulse Rate [Apical] 82 Pulse Rate from SpO2 Sensor 79 87 Pulse Rhythm Pulse Rhythm [Apical] Regular Pulse Strength Pulse Strength [Apical] Normal Respiratory Rate 18 18 18 Respiratory Effort / Characteristics Non-Labored Spontaneous Respiratory Depth Normal Respiratory Pattern Regular Blood Pressure 142/84 H 97/87 L Blood Pressure [Left Arm] 151/87 H Blood Pressure Mean 108 89 Blood Pressure Mean [Left Arm] 108 Blood Pressure Position Blood Pressure Position [Left Arm] Sitting Pulse Oximetry 96 95 94 Oxygen Delivery Method Room Air Sepsis Recent Fever Within 48 Hours Sepsis New/Unexplained Change in Mental Status Sepsis Action Taken by Nursing Laboratory Data Result diagrams: 09/12/19 19:49 09/12/19 19:49 Lab Results 09/12/19 09/12/19 09/12/19 Range/Units 19:49 19:49 19:50 WBC 13.93 H (4.8-10.8) K/uL RBC 3.98 L (4.2-5.4) M/uL Hgb 11.2 L (12.0-16.0) g/dL Hct 34.7 L (37-47) % MCV 87.2 (80-100) fL MCH 28.1 (25-34) pg MCHC 32.3 (32-36) g/dL RDW Std Deviation 53.7 H (36.4-46.3) fL RDW Coeff of Conner 16.9 H (11.5-14.5) % Plt Count 172 (130-400) K/uL MPV 10.5 H (7.4-10.4) fL Immature Gran % (Auto) 0.3 % Neut % (Auto) 72.6 % Lymph % (Auto) 13.6 % [place] % (Auto) 13.3 % Eos % (Auto) 0.1 % Baso % (Auto) 0.1 % Neut # (Auto) 10.12 H (1.4-6.5) K/uL Lymph # (Auto) 1.89 (1.2-3.4) K/uL [place] # (Auto) 1.85 H (0.11-0.59) K/uL Eos # (Auto) 0.01 (0-0.5) K/uL Baso # (Auto) 0.02 (0-0.2) K/uL Immature Gran # (Auto) 0.04 H (0.00-0.02) K/uL Sodium 134 L (136-145) mmol/L Potassium 4.2 (3.5-5.1) mmol/L Chloride 103 (98-107) mmol/L Carbon Dioxide 23 (21-32) mmol/L Anion Gap 8.0 (3-11) BUN 15 (7-18) mg/dl Creatinine 0.90 (0.6-1.2) mg/dl Est Cr Clr Drug Dosing 40.9 ml/min Est GFR ( Amer) 72.5 Est GFR (Non-Af Amer) 62.5 BUN/Creatinine Ratio 16.1 (10-20) Glucose 87 (70-99) mg/dl Lactate (0.4-2.0) mmol/L Calcium 8.7 (8.5-10.1) mg/dl Total Bilirubin 1.1 H (0.2-1) mg/dl AST 60 H (15-37) U/L ALT 35 (12-78) U/L Alkaline Phosphatase 196 H (45-117) U/L Total Protein 8.0 (6.4-8.2) gm/dl Albumin 3.6 (3.4-5.0) gm/dl Globulin 4.4 H (2.5-4.0) gm/dl Albumin/Globulin Ratio 0.8 L (0.9-2) Lipase 197 (73-393) U/L Stl C. diff Tox B Gene Positive Cdiff Gene H (Neg) Stl C.difficile Tox A&B Negative Cdiff Toxin (Negative) 09/12/19 Range/Units 23:07 WBC (4.8-10.8) K/uL RBC (4.2-5.4) M/uL Hgb (12.0-16.0) g/dL Hct (37-47) % MCV (80-100) fL MCH (25-34) pg MCHC (32-36) g/dL RDW Std Deviation (36.4-46.3) fL RDW Coeff of Conner (11.5-14.5) % Plt Count (130-400) K/uL MPV (7.4-10.4) fL Immature Gran % (Auto) % Neut % (Auto) % Lymph % (Auto) % [place] % (Auto) % Eos % (Auto) % Baso % (Auto) % Neut # (Auto) (1.4-6.5) K/uL Lymph # (Auto) (1.2-3.4) K/uL [place] # (Auto) (0.11-0.59) K/uL Eos # (Auto) (0-0.5) K/uL Baso # (Auto) (0-0.2) K/uL Immature Gran # (Auto) (0.00-0.02) K/uL Sodium (136-145) mmol/L Potassium (3.5-5.1) mmol/L Chloride (98-107) mmol/L Carbon Dioxide (21-32) mmol/L Anion Gap (3-11) BUN (7-18) mg/dl Creatinine (0.6-1.2) mg/dl Est Cr Clr Drug Dosing ml/min Est GFR ( Amer) Est GFR (Non-Af Amer) BUN/Creatinine Ratio (10-20) Glucose (70-99) mg/dl Lactate 1.9 (0.4-2.0) mmol/L Calcium (8.5-10.1) mg/dl Total Bilirubin (0.2-1) mg/dl AST (15-37) U/L ALT (12-78) U/L Alkaline Phosphatase (45-117) U/L Total Protein (6.4-8.2) gm/dl Albumin (3.4-5.0) gm/dl Globulin (2.5-4.0) gm/dl Albumin/Globulin Ratio (0.9-2) Lipase (73-393) U/L Stl C. diff Tox B Gene (Neg) Stl C.difficile Tox A&B (Negative) Administered Medications Sodium Chloride (Nss 1000ml) 1,000 mls @ 125 mls/hr IV .Q8H STA Stop: 09/13/19 03:29 Last Admin: 09/12/19 19:53 Dose: 125 mls/hr Documented by: [id number] Morphine Sulfate (Morphine Sulfate) 4 mg IV Q15M PRN PRN Reason: Pain Stop: 09/26/19 19:29 Last Admin: 09/12/19 19:53 Dose: 4 mg Documented by: [id number] Discontinued Medications Fidaxomicin (Dificid) 200 mg PO NOW STA Stop: 09/12/19 22:40 Last Admin: 09/12/19 22:55 Dose: 200 mg Documented by: [id number] Sodium Chloride (Nss) 500 mls @ 999 mls/hr IV .Q31M BRICE Stop: 09/12/19 19:30 Last Infusion: 09/12/19 20:56 Dose: 0 mls/hr Documented by: [id number] Admin: 09/12/19 19:53 Dose: 999 mls/hr Documented by: [id number] Sodium Chloride (Nss 1000ml) 500 mls @ 999 mls/hr IV .Q31M ONE Stop: 09/12/19 23:09 Last Admin: 09/12/19 22:47 Dose: 999 mls/hr Documented by: [id number] Ondansetron HCl (Zofran) 4 mg IV NOW STA Stop: 09/12/19 19:31 Last Admin: 09/12/19 19:53 Dose: 4 mg Documented by: [id number] Discharge Plan Visit Data Chief Complaint: Diarrhea Stated Complaint: THINK MIGHT HAVE C DIFF, SICK ALL WK ED Provider: Shaquille Arreola Discharge Problem: Pancolitis, Left sided abdominal pain, Diarrhea, Leukocytosis Forms Stand Alone Forms: My [facility] Prescriptions Prescriptions: No Action losartan 50 mg tablet 50 mg PO QAM RF: 0 carvedilol 6.25 mg tablet 6.25 mg PO BID RF: 0 clopidogrel 75 mg tablet 75 mg PO QAM RF: 0 acetaminophen [Tylenol Extra Strength] 500 mg Tablet 500 mg PO DIRECTED PRN (Reason: Pain) RF: 0 fluoxetine 20 mg capsule 20 mg PO QAM RF: 0 folic acid 1 mg tablet 1 mg PO QAM RF: 0 pantoprazole 40 mg Tablet,Delayed Release (Dr/Ec) 40 mg PO QAM RF: 0 Probiotic 3 billion cell Capsule 3,000 mmu cells PO UD RF: 0
[2019-09-12 20:09] LABS: Hematocrit (blood only) 34.7 % (37-47); Hemoglobin 11.2 g/dL (12.0-16.0); Mean Corpuscular Hemoglobin 28.1 pg (25-34); Mean Corpuscular Hgb Conc 32.3 g/dL (32-36); Mean Corpuscular Volume 87.2 fL (80-100); Mean Platelet Volume 10.5 fL (7.4-10.4); Platelet Count 172 K/uL (130-400); RDW Coefficient of Variation 16.9 % (11.5-14.5); RDW Standard Deviation 53.7 fL (36.4-46.3); Red Blood Count 3.98 M/uL (4.2-5.4); White Blood Count 13.93 K/uL (4.8-10.8)
[2019-09-12 20:24] LABS: Albumin Level 3.6 gm/dl (3.4-5.0); BUN Creatinine Ratio 16.1 (10-20); Calcium 8.7 mg/dl (8.5-10.1); Creatinine Clr Calc Pharmacy 40.9 ml/min; Est GFR (African American) 72.5; Est GFR (Non-African American) 62.5; Potassium 4.2 mmol/L (3.5-5.1)
[2019-09-12 20:27] LABS: Albumin Globulin Ratio 0.8 (0.9-2); Bilirubin,Total 1.1 mg/dl (0.2-1); Globulin 4.4 gm/dl (2.5-4.0)
[2019-09-12 20:35] LABS: Basophils # (auto) 0.02 K/uL (0-0.2); Basophils % (auto) 0.1 %; Eosinophils # (auto) 0.01 K/uL (0-0.5); Eosinophils % (auto) 0.1 %; Immature Granulocytes # (auto) 0.04 K/uL (0.00-0.02); Immature Granulocytes % (auto) 0.3 %; Lymphocytes # (auto) 1.89 K/uL (1.2-3.4); Lymphocytes % (auto) 13.6 %; Monocytes # (auto) 1.85 K/uL (0.11-0.59); Monocytes % (auto) 13.3 %; Neutrophils # (auto) 10.12 K/uL (1.4-6.5); Neutrophils % (auto) 72.6 %
--- NOTE | 2019-09-12 21:09 | CT Scan Report ---
CT SCAN OF THE ABDOMEN AND PELVIS WITHOUT IV CONTRAST CLINICAL HISTORY: Generalized abdominal pain. Diarrhea. COMPARISON STUDY: Abdominal CT dated 05/06/2019. TECHNIQUE: CT scan of the abdomen and pelvis is performed from the lung bases to the proximal femora. Images are reviewed in the axial, sagittal, and coronal planes. IV contrast was not administered for this examination. Note that the examination is suboptimal without oral and IV contrast. A dose lower ing technique was utilized adhering to the principles of ALARA. CT DOSE: 697.16 mGycm FINDINGS: Lung bases: The heart is normal in size and without pericardial effusion. The coronary arteries, mitr al annulus, and aortic valve leaflets are densely calcified. The lung bases are clear noting bibasila r scarring/atelectasis. A stent graft is present within the descending thoracic aorta. Liver: The unenhanced liver is cirrhotic in morphology and heterogeneous in attenuation. There is hyp ertrophy of the left lobe and caudate, as well as nodularity of the surface contour. There is recanal ization of the periumbilical vein. There is no intrahepatic biliary ductal dilatation. Gallbladder: There are small calcified gallstones with no CT evidence of acute cholecystitis. Spleen: Normal in size and attenuation. Pancreas: The unenhanced pancreas is moderately atrophic and grossly unremarkable. Adrenal glands: Unremarkable. Kidneys: The unenhanced kidneys demonstrate cortical atrophy and are without hydronephrosis. There ar e no renal calculi identified. There is no evidence of contour deforming renal mass lesion. Abdominal vasculature: The abdominal aorta is normal in course and caliber noting advanced atheroscle rotic calcification. A 1.3 cm saccular aneurysm of the distal abdominal aorta is unchanged from previ ous. Stents are present within the left renal artery and the left common iliac artery. Bowel: There is no bowel obstruction. There is mild wall thickening and edema seen throughout the col on with faint pericolonic infiltration. There is trace fluid in the paracolic gutters. Liquid stool i s noted in the right colon. The appendix is not identified. Peritoneum: There is no intraperitoneal free air or abdominal ascites. Lymphadenopathy: None. Pelvic viscera: The bladder, uterus, and adnexa are normal as imaged. Surgical clips are present in t he groin bilaterally. Skeletal structures: The skeletal structures are osteopenic. Mild to moderate lumbosacral spondylosis is noted. No lytic or blastic lesions are seen. IMPRESSION: 1. Findings are consistent with a nonspecific pancolitis. Clinical correlation will be required. 2. The liver is cirrhotic in morphology and heterogeneous in attenuation. 3. Cholelithiasis. 4. A stent graft is noted in the descending thoracic aorta. 5. Additional findings as above. ACT 112: Negative or not required by law. Electronically signed by: Barron Wheat M.D. 09/12/2019 9:08 PM
[2019-09-12 21:44] LABS: Cdiff Antigen Positive; Cdiff Toxin A+B Negative Cdiff Toxin (Negative)
--- NOTE | 2019-09-12 21:59 | XRay Report ---
SINGLE VIEW CHEST CLINICAL HISTORY: Cough. FINDINGS: An AP, portable, upright chest radiograph is compared to study dated 09/05/2018 and correlat ed with chest CT dated 05/06/2019. The examination is degraded by portable technique, apical lordotic positioning, and patient rotation. The heart is top normal for projection noting atherosclerotic chidi cification of the thoracic aorta. A stent graft is again seen in the descending thoracic aorta. There is mild bibasilar atelectasis. No airspace consolidation or large pleural effusion is identified. No pneumothorax is seen. The skeletal structures are osteopenic. The bony thorax is grossly intact. A r ight shoulder arthroplasty is in place. IMPRESSION: No active disease in the chest. ACT 112: Negative or not required by law. Electronically signed by: Barron Wheat M.D. 09/12/2019 9:57 PM
[2019-09-12] MEDS ORDERED: FIDAXOMICIN 200 MG TAB PO STA (22:39)
[2019-09-12] MEDS ORDERED: SODIUM CHLORIDE 0.9% 1000ML 500 ML IV ONE (22:39)
--- NOTE | 2019-09-12 23:51 | History & Physical Report ---
Date of Service September 12, 2019 Assessment & Plan (1) Recurrent colitis due to Clostridioides difficile: Per gastroenterology Dr. Jasmine, placed on Dificid. Full liquid diet as tolerated. NSS@80 mils per hour Zofran 4 mg IV every 6 hours as needed Famotidine 20 mg IV every 12 hours Present on Admission?: Yes (2) Hypertension: Hold carvedilol 6.25 mg p.o. twice daily and losartan 50 mg p.o. every morning due to relative hypotension. 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 Primary Care Provider: Beatris Noriega PA-C The patient is a 74-year-old female with a past medical history including Vanco resistant C. difficile colitis, hypertension, superior mesenteric artery stenosis, anemia, hyperlipidemia, depression, hypertension, right bundle branch block, hemochromatosis, liver cirrhosis and aortic dissection. The patient presents to the emergency department with a recurrence of diarrhea along with abdominal pain and fever, reminiscent of her previous episodes of C. difficile colitis. She reportedly had a recurrence of C. difficile in the past after having completed course of vancomycin, but had not been on any daily prophylaxis at that time. She was changed to Dificid at that time, and today, per recommendation from Dr. Jasmine of gastroenterology, received initial dose of Dificid treatment while in the ED tonight. Allergies Allergy/AdvReac Type Severity Reaction Status Date / Time pollen extracts Allergy Intermediate Swelling Verified 09/12/19 22:48 of throat codeine AdvReac Intermediate vomiting Verified 09/12/19 22:48 Djnjrrd-Hfn-Rwb Reductase AdvReac Intermediate MUSCLE AND Verified 09/12/19 22:48 Inhibitor BODY ACHES Home Medications Home Medications Medication Instructions Recorded Confirmed Type acetaminophen [Tylenol Extra 500 mg PO DIRECTED PRN 07/22/18 09/12/19 History Strength] carvedilol 6.25 mg PO BID 07/22/18 09/12/19 History clopidogrel 75 mg PO QAM 07/22/18 09/12/19 History fluoxetine 20 mg PO QAM 07/22/18 09/12/19 History losartan 50 mg PO QAM 07/22/18 09/12/19 History folic acid 1 mg PO QAM 09/05/18 09/12/19 History Probiotic 3,000 mmu cells PO UD 12/20/18 09/12/19 History pantoprazole 40 mg PO QAM 12/20/18 09/12/19 History vancomycin See Rx Instructions .ROUTE 09/16/19 Rx .COMPLEX #100 cap Past Med/Surg History Medical History Anemia (Chronic) Aortic dissection (Chronic) Type B aortic dissection involving both the thoracic and abdominal aorta. Status post TEVAR 09/2017 from the mid thoracic aorta to the celiac artery. Also a 5 x 17-mm bare-metal stent placed in the left superior renal artery and an 8 x 37 bare-metal stent in the left iliac artery. Cardiac murmur Cirrhosis of liver (Chronic) secondary to hemochromatosis Depression (Chronic) GERD (gastroesophageal reflux disease) Hemochromatosis (Chronic) Cardiac MRI without evidence of iron deposition, LVEF 60%, RV EF 63%. Hiatal hernia Hyperlipidemia (Chronic) Hypertension (Acute) Hypertension (Chronic) Osteoarthritis Right bundle branch block (Chronic) Superior mesenteric artery stenosis (Chronic) hi-grade stenosis Surgical History Aneurysm (Acute) H/O foot surgery RIGHT 4 TH TOE AMPUTATION-AGE 11 History of abdominal aortic aneurysm (AAA) repair September of 2017 History of bilateral tubal ligation History of colonoscopy History of esophagogastroduodenoscopy (EGD) History of tonsillectomy S/P appendectomy Family History Family/Other Family history of reaction to anesthesia [place] AGE 16-SLOW TO WAKE UP-"SHE HEARD EVERYTHING BUT SHE COULDN'T TELL ANTBODY SHE COULD HEAR" Brother Family history of diabetes mellitus Brother Family history of diabetes mellitus Brother Family history of diabetes mellitus Brother Family history of diabetes mellitus Brother Family history of diabetes mellitus Sister Family history of diabetes mellitus Father Family history of diabetes mellitus Uncle Family history of diabetes mellitus Son Family hx of colon cancer Other Family history non-contributory Social History Smoking Status: Former smoker Second Hand Exposure: No; Hx Alcohol Use: Yes Alcohol type: wine Hx Substance Use: No Preferred Language: Colombian Communication Ability: Effective 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 Beliefs That Will Affect Care: None marital status: Current Living Situation: Spouse Current Living Situation Comment: Lives with Feels Safe at Home: Yes Review of Systems Review of Systems: The patient denies chest pain, palpitations, shortness of breath, dyspnea on exertion, cough, lower extremity swelling, sore throat, chills, sweats, vomiting, blood in urine or stool, dysuria, urinary frequency or urgency, lightheadedness, dizziness, headache, memory loss, loss of consciousness, rash, abnormal bruising or bleeding, imbalance, focal or generalized weakness, numbness or tingling in arms or legs, generalized arthralgias or myalgias, back or neck pain, or night sweats. The review of systems is otherwise negative other than for that already noted above, and at least 10 systems have been reviewed. Physical Exam Physical Exam: The patient is awake, alert and oriented 3, well developed and well nourished, normocephalic and atraumatic, lying in bed and in no acute distress. HEENT--PERRL, EOMI, mucous membranes and oropharynx dry. Neck--supple. No JVD. No bruits. Thyroid normal, trachea midline, no adenopathy. Heart--normal S1 and S2. No murmurs, rubs or gallops. Lungs--clear bilaterally, no respiratory distress, no accessory muscle use. Abdomen--normal bowel sounds and soft. Mild left lower quadrant tenderness. Nondistended Extremities--no cyanosis or clubbing. No edema. Dermatologic--normal skin turgor, normal color, no abnormal lymph nodes, no rash. Neurologic--cranial nerves II through XII grossly intact. Rheumatologic--normal range of motion. Psychiatric--normal affect. Results & Data Results & Data ([facility]) Vital Signs (Past 12 Hours) Vital Signs Temp Pulse Resp BP Pulse Ox 09/12/19 21:49 87 18 97/87 L 95 09/12/19 20:31 79 18 142/84 H 96 09/12/19 20:01 96 09/12/19 20:00 77 18 115/64 95 09/12/19 17:42 99.1 F 73 18 138/71 98 Laboratory Results Laboratory Results WBC 13.93 K/uL (4.8-10.8) H 09/12/19 19:49 RBC 3.98 M/uL (4.2-5.4) L 09/12/19 19:49 Hgb 11.2 g/dL (12.0-16.0) L 09/12/19 19:49 Hct 34.7 % (37-47) L 09/12/19 19:49 MCV 87.2 fL (80-100) 09/12/19 19:49 MCH 28.1 pg (25-34) 09/12/19 19:49 MCHC 32.3 g/dL (32-36) 09/12/19 19:49 RDW Std Deviation 53.7 fL (36.4-46.3) H 09/12/19 19:49 RDW Coeff of Conner 16.9 % (11.5-14.5) H 09/12/19 19:49 Plt Count 172 K/uL (130-400) 09/12/19 19:49 MPV 10.5 fL (7.4-10.4) H 09/12/19 19:49 Immature Gran % (Auto) 0.3 % 09/12/19 19:49 Neut % (Auto) 72.6 % 09/12/19 19:49 Lymph % (Auto) 13.6 % 09/12/19 19:49 Tift % (Auto) 13.3 % 09/12/19 19:49 Eos % (Auto) 0.1 % 09/12/19 19:49 Baso % (Auto) 0.1 % 09/12/19 19:49 Neut # (Auto) 10.12 K/uL (1.4-6.5) H 09/12/19 19:49 Lymph # (Auto) 1.89 K/uL (1.2-3.4) 09/12/19 19:49 Tift # (Auto) 1.85 K/uL (0.11-0.59) H 09/12/19 19:49 Eos # (Auto) 0.01 K/uL (0-0.5) 09/12/19 19:49 Baso # (Auto) 0.02 K/uL (0-0.2) 09/12/19 19:49 Immature Gran # (Auto) 0.04 K/uL (0.00-0.02) H 09/12/19 19:49 Sodium 134 mmol/L (136-145) L 09/12/19 19:49 Potassium 4.2 mmol/L (3.5-5.1) 09/12/19 19:49 Chloride 103 mmol/L (98-107) 09/12/19 19:49 Carbon Dioxide 23 mmol/L (21-32) 09/12/19 19:49 Anion Gap 8.0 (3-11) 09/12/19 19:49 BUN 15 mg/dl (7-18) 09/12/19 19:49 Creatinine 0.90 mg/dl (0.6-1.2) 09/12/19 19:49 Est Cr Clr Drug Dosing 40.9 ml/min 09/12/19 19:49 Est GFR ( Amer) 72.5 09/12/19 19:49 Est GFR (Non-Af Amer) 62.5 09/12/19 19:49 BUN/Creatinine Ratio 16.1 (10-20) 09/12/19 19:49 Glucose 87 mg/dl (70-99) 09/12/19 19:49 Lactate 1.9 mmol/L (0.4-2.0) 09/12/19 23:07 Calcium 8.7 mg/dl (8.5-10.1) 09/12/19 19:49 Total Bilirubin 1.1 mg/dl (0.2-1) H 09/12/19 19:49 AST 60 U/L (15-37) H 09/12/19 19:49 ALT 35 U/L (12-78) 09/12/19 19:49 Alkaline Phosphatase 196 U/L (45-117) H 09/12/19 19:49 Total Protein 8.0 gm/dl (6.4-8.2) 09/12/19 19:49 Albumin 3.6 gm/dl (3.4-5.0) 09/12/19 19:49 Globulin 4.4 gm/dl (2.5-4.0) H 09/12/19 19:49 Albumin/Globulin Ratio 0.8 (0.9-2) L 09/12/19 19:49 Lipase 197 U/L (73-393) 09/12/19 19:49 Stl C. diff Tox B Gene Positive Cdiff Gene (Neg) H 09/12/19 19:50 Stl C.difficile Tox A&B Negative Cdiff Toxin (Negative) 09/12/19 19:50 Diagnostic Findings [facility] [phone] XRay Report Patient: YOSI ELMORE Date: 09/12/19 MR#: [id number]: [address] [facility] Acct ID:[id number]: [facility] Zip[facility] [place] [address] Age: 74Location: ED Sex: F Room/Bed: Att Phy:Diagnosis: THINK MIGHT HAVE C DIFF, SICK ALL WK [place] Phy: Beatris Noriega PA-CService Date: 09/12/19 Fam Phy:Interpreting Phy: Barron Wheat MD Admit Phy: Ordering Phy: Shaquille Arreola MD cc: ~ SINGLE VIEW CHEST CLINICAL HISTORY: Cough. FINDINGS: An AP, portable, upright chest radiograph is compared to study dated 09/05/2018 and correlated with chest CT dated 05/06/2019. The examination is degraded by portable technique, apical lordotic positioning, and patient rotation. The heart is top normal for projection noting atherosclerotic calcification of the thoracic aorta. A stent graft is again seen in the descending thoracic aorta. There is mild bibasilar atelectasis. No airspace consolidation or large pleural effusion is identified. No pneumothorax is seen. The skeletal structures are osteopenic. The bony thorax is grossly intact. A right shoulder arthroplasty is in place. IMPRESSION: No active disease in the chest. ACT 112: Negative or not required by law. Electronically signed by: Barron Wheat M.D. 09/12/2019 9:57 PM Dictated: 09/12/192155 Transcribed: 09/12/192155 Code Status & VTE Plan Code Status Full code VTE Prophylaxis Plan VTE Prophylaxis will be ordered: Yes PG Care Time/CCT Total # of Minutes Spent Total Time Spent with Patient: Total time spent is greater than 50% in coordination of care (as documented) at patient's floor/unit and/or counseling patient: Coding Level of Care Code 77781 Initial Inpt Care Lvl 3 Diagnoses Recurrent colitis due to Clostridioides difficile A04.71 Hypertension I10 Hypertension type: unspecified Depression F32.9 Cirrhosis of liver K74.60 (1) Hypertension Hypertension type: unspecified Qualified Code(s): I10 - Essential (primary) hypertension
[2019-09-13] MEDS ORDERED: ONDANSETRON INJ 2 MG/ML 2 ML VIAL IV PRN (02:27)
[2019-09-13] MEDS: SODIUM CHLORIDE 0.9% 1000ML 1,000 ML IV SCH ×2 (02:56→15:29)
[2019-09-13 06:23] LABS: Appearance Urine Cloudy (Clear); Bacteria Urine Automated 1+ (Negative); Bilirubin Urine Negative (Negative); Blood Urine 2+ (Negative); Color Urine Dark Yellow; Epithelial Cell Urine Auto >30 /lpf (0-5); Glucose Urine UA Negative (Negative); Ketones Urine 1+ (Negative); Leukocyte Esterase Urine 2+ (Negative); Nitrite Urine Negative (Negative); Protein Urine 1+ (Negative); Specific Gravity Urine 1.017 (1.000-1.030); Urobilinogen Urine Negative (Negative); pH Urine 5.5 (4.5-7.5)
[2019-09-13 06:44] LABS: RBC Urine Automated 0-4 /hpf (0-4)
[2019-09-13 07:35] LABS: Hemoglobin 9.9 g/dL (12.0-16.0); Mean Corpuscular Hemoglobin 27.7 pg (25-34); Mean Corpuscular Hgb Conc 31.9 g/dL (32-36); Mean Corpuscular Volume 86.8 fL (80-100); Mean Platelet Volume 10.2 fL (7.4-10.4); Platelet Count 150 K/uL (130-400); RDW Coefficient of Variation 16.8 % (11.5-14.5); RDW Standard Deviation 53.2 fL (36.4-46.3); Red Blood Count 3.57 M/uL (4.2-5.4); White Blood Count 13.48 K/uL (4.8-10.8)
[2019-09-13 07:57] LABS: Basophils # (auto) 0.02 K/uL (0-0.2); Basophils % (auto) 0.1 %; Immature Granulocytes # (auto) 0.05 K/uL (0.00-0.02); Immature Granulocytes % (auto) 0.4 %; Lymphocytes # (auto) 1.77 K/uL (1.2-3.4); Lymphocytes % (auto) 13.1 %; Monocytes # (auto) 1.97 K/uL (0.11-0.59); Monocytes % (auto) 14.6 %; Neutrophils # (auto) 9.67 K/uL (1.4-6.5); Neutrophils % (auto) 71.8 %
[2019-09-13 08:09] LABS: BUN Creatinine Ratio 16.7 (10-20); Calcium 7.7 mg/dl (8.5-10.1); Creatinine Clr Calc Pharmacy 45.6 ml/min; Est GFR (African American) 82.3
[2019-09-13 08:12] LABS: Albumin Globulin Ratio 0.8 (0.9-2); Globulin 3.7 gm/dl (2.5-4.0); Total Protein 6.7 gm/dl (6.4-8.2)
[2019-09-13] MEDS: ACETAMINOPHEN 500 MG TAB PO PRN ×3 (08:15→20:53)
[2019-09-13] MEDS: CLOPIDOGREL BISULFATE 75 MG TAB PO SCH (08:16)
[2019-09-13] MEDS: FOLIC ACID 1 MG TAB PO SCH (08:16)
[2019-09-13] MEDS: LACTOBACILLUS ACIDOPHILUS (FLORANEX) TAB PO SCH (08:16)
[2019-09-13] MEDS: FLUOXETINE HCL 20 MG CAP PO SCH (08:17)
[2019-09-13] MEDS: PANTOprazole 40 MG TAB PO SCH (08:17)
[2019-09-13] MEDS: FAMOTIDINE 20 MG in SYRINGE 3 ML IV SCH ×2 (09:08→20:53)
[2019-09-13] MEDS: FIDAXOMICIN 200 MG TAB PO SCH ×2 (14:18→20:53)
--- NOTE | 2019-09-13 14:31 | Hospitalist Progress Note ---
Date of Service September 13, 2019 Assessment & Plan (1) Recurrent colitis due to Clostridioides difficile: 1. Recurrent colitis due to Clostridioides difficile: -per gastroenterology Dr. Jasmine, placed on Dificid 200mg PO bid -lactobacillus acidophilus 4 tabs PO qd -full liquid diet as tolerated -NS 80mL/hr q12h -zofran 4mg IV q12h -famotidine 20mg IV q12h -pantoprazole 40mg PO qAM -acetaminophen 500mg PO q6h -morphine discontinued 2. Hypertension: -hold home carvedilol (6.25mg PO bid) and losartan (50mg PO qAM) due to relative hypotension 3. Depression: -c/w fluoxetine 20mg qAM 4. Cirrhosis of the liver 2/2 hemochromatosis (2) Diarrhea: (3) Leukocytosis: (4) Abdominal pain: Admission and Anticipated Discharge Date Admission Date: September 12, 2019 Supervising Physician Co-Signing Physician Notes I personally examined the patient and verified all hicks points of history and exam, discussed case, and agree with decision making with Dr Manuel. ongoing diarrhea but maybe slowed down a tiny bit. ongoing off/on belly pain. vitals noted nad heent nc at mmm breathing unlabored no accessory muscles good effort skin no rashes no pallor or icterus. abd soft nd, mild diffuse tender no guarding no rebound. recurrent Cdiff colitis w probable sepsis (SIRS are WBC, just barely below criteria for HR and temp, but appearing clinically quite ill with this) - continue dificid for now, appearing to show improvement. probably long course of treatment (possibly switch to vanco again) - d/w pt also that she likely would be a good candidate to strongly consider vanco proph for any time she needs an antibiotic DVT proph - ambulation and SCDs otherwise as above Subjective Patient was seen at bedside. She feels "horrible" but reports that she has no new or worsened symptoms compared to this morning and last night. Patient endorses fever, sweating, severe abdominal cramping, watery diarrhea, weakness, and fatigue. Patient reports this feels "just like" her previous bouts of C. diff colitis. Review of Systems Respiratory: no cough, no dyspnea and no wheezing Cardiovascular: no chest pain, no palpitations, no edema and no calf pain Gastrointestinal: no nausea and no vomiting Genitourinary: no dysuria, no urinary frequency, no urinary hesitancy and no urinary incontinence Physical Exam Constitutional: + ill appearing; no acute distress Respiratory: no respiratory distress, no labored breathing and does not use accessory muscles Gastrointestinal (Abdomen): Inspection/Auscultation: abdomen not distended Percussion/Palpation: + abdomen tender (exquisitely tender to deep palpation in all quadrants) and abdomen soft; no guarding and abdomen not rigid Results & Data Results & Data ([facility]) Vital Signs (Past 12 Hours) Vital Signs Temp Pulse Pulse Resp BP Pulse Ox 09/13/19 08:00 37.6 C H 82 18 119/76 93 09/13/19 02:27 37.7 C H 74 24 151/84 H 93 (1) Abdominal pain Abdominal location: unspecified location Qualified Code(s): R10.9 - Unspecified abdominal pain
--- NOTE | 2019-09-13 16:26 | Gastrointestinal Consultation ---
Date of Consultation September 13, 2019 Assessment & Plan (1) Recurrent colitis due to Clostridioides difficile: I think she has this despite neg toxin. Recommend complete course of Dificid then use vancomycin 125 mg po 4 times daily one week, 3 times daily one week, 2 times daily one week, 1 time daily one week then DC. diarrhea--presumably from Cdiff. abd pain--presumably from Cdiff elevated WBC can be from Cdiff. colon thickenignn on CT --can be explained by Cdiff. cirrhosis--nothing acute to do History of Present Illness Reason for Consultation: Recurrent Cdiff Requesting Physician: DR Doherty Attending Physician: Sajan Gonzales, DO History of Present Illness CC abd pain, diarrhea HPI Pt with hx of Cdiff int eh past most recently 07/2018 recurred off of vancomycin so given Dificid. She had recent eye surgery and given Keflex. She then developed diarreha, abd pain, anrorexia. No n/v. No black nor bloody stools. She has cirrhosis secondary to hemochromatosis. On admit Cdiff gene pos but toxin neg. Stool culture no growth so far. She was started on Dificid last evening with perhaps decreased diarrhea but no improvement in left side abd pain. Admit WBC 13.9 is stable at 13.48 today. She had EGD by DR Palma 12/2018 showing grade [address] a/p thsi admit cirrhosis, gallstones, mild wall thickening throughout colon, liquid stool right colon, sent in descending thoracid aorta, 1.3 cm AAA. Allergies Allergy/AdvReac Type Severity Reaction Status Date / Time pollen extracts Allergy Intermediate Swelling Verified 09/12/19 22:48 of throat codeine AdvReac Intermediate vomiting Verified 09/12/19 22:48 Vfomphj-Lgc-Ipm Reductase AdvReac Intermediate MUSCLE AND Verified 09/12/19 22:48 Inhibitor BODY ACHES Home Medications Home Medications Medication Instructions Recorded Confirmed Type acetaminophen [Tylenol Extra 500 mg PO DIRECTED PRN 07/22/18 09/12/19 History Strength] carvedilol 6.25 mg PO BID 07/22/18 09/12/19 History clopidogrel 75 mg PO QAM 07/22/18 09/12/19 History fluoxetine 20 mg PO QAM 07/22/18 09/12/19 History losartan 50 mg PO QAM 07/22/18 09/12/19 History folic acid 1 mg PO QAM 09/05/18 09/12/19 History Probiotic 3,000 mmu cells PO UD 12/20/18 09/12/19 History pantoprazole 40 mg PO QAM 12/20/18 09/12/19 History Patient History Medical History Anemia (Chronic) Aortic dissection (Chronic) Type B aortic dissection involving both the thoracic and abdominal aorta. Status post TEVAR 09/2017 from the mid thoracic aorta to the celiac artery. Also a 5 x 17-mm bare-metal stent placed in the left superior renal artery and an 8 x 37 bare-metal stent in the left iliac artery. Cardiac murmur Cirrhosis of liver (Chronic) secondary to hemochromatosis Depression (Chronic) GERD (gastroesophageal reflux disease) Hemochromatosis (Chronic) Cardiac MRI without evidence of iron deposition, LVEF 60%, RV EF 63%. Hiatal hernia Hyperlipidemia (Chronic) Hypertension (Acute) Hypertension (Chronic) Osteoarthritis Right bundle branch block (Chronic) Superior mesenteric artery stenosis (Chronic) hi-grade stenosis Surgical History Aneurysm (Acute) H/O foot surgery RIGHT 4 TH TOE AMPUTATION-AGE 11 History of abdominal aortic aneurysm (AAA) repair September of 2017 History of bilateral tubal ligation History of colonoscopy History of esophagogastroduodenoscopy (EGD) History of tonsillectomy S/P appendectomy Family History Family/Other Family history of reaction to anesthesia [facility] AGE 16-SLOW TO WAKE UP-"SHE HEARD EVERYTHING BUT SHE COULDN'T TELL ANTBODY SHE COULD HEAR" Brother Family history of diabetes mellitus Brother Family history of diabetes mellitus Brother Family history of diabetes mellitus Brother Family history of diabetes mellitus Brother Family history of diabetes mellitus Sister Family history of diabetes mellitus Father Family history of diabetes mellitus Uncle Family history of diabetes mellitus Son Family hx of colon cancer Other Family history non-contributory Social History Smoking Status: Former smoker Second Hand Exposure: No; Hx Alcohol Use: Yes Alcohol type: wine Hx Substance Use: No Preferred Language: Arabic Communication Ability: Effective Publication Manager Required: No Beliefs That Will Affect Care: None Current Living Situation: Spouse Current Living Situation Comment: Lives with Feels Safe at Home: Yes Safety Concerns: Feels Safe At This Time Review of Systems Review of Systems: All systems reviewed & are unremarkable except as noted in HPI & below Physical Exam Constitutional: WD/WN, vitals as above Eyes: PERRL, conjunctivae normal, anicteric sclerae Neck: normal visual inspection and trachea midline Respiratory: normal respiratory effort, lungs clear to auscultation Cardiovascular: RRR, no murmur, no edema Gastrointestinal (Abdomen): pos bs, soft, left lower quadrant guarding but no rebound Musculoskeletal: no cyanosis or clubbing, extremities motor strength 5/5 Skin: normal turgor Neurologic: PERRL, EOMI, accommodation nl, no face palsy, no dysarthria Psychiatric: A+Ox3, euthymic affect Results & Data ([facility]) Vital Signs (Past 12 Hours) Vital Signs Temp Pulse Resp BP Pulse Ox 09/13/19 08:00 37.6 C H 82 18 119/76 93
--- NOTE | 2019-09-13 19:00 | Billing Data ---
Date of Service September 13, 2019 Coding Level of Care Code 51518 Subseq Hosp Care Lvl 3
[2019-09-14] MEDS: SODIUM CHLORIDE 0.9% 1000ML 1,000 ML IV SCH ×2 (03:58→16:32)
[2019-09-14] MEDS: ACETAMINOPHEN 500 MG TAB PO PRN ×2 (03:58→22:57)
[2019-09-14 07:36] LABS: Basophils # (auto) 0.02 K/uL (0-0.2); Basophils % (auto) 0.1 %; Eosinophils # (auto) 0.04 K/uL (0-0.5); Eosinophils % (auto) 0.2 %; Hematocrit (blood only) 28.8 % (37-47); Hemoglobin 9.1 g/dL (12.0-16.0); Immature Granulocytes # (auto) 0.06 K/uL (0.00-0.02); Immature Granulocytes % (auto) 0.3 %; Lymphocytes # (auto) 2.44 K/uL (1.2-3.4); Lymphocytes % (auto) 13.6 %; Mean Corpuscular Hemoglobin 27.9 pg (25-34); Mean Corpuscular Hgb Conc 31.6 g/dL (32-36); Mean Corpuscular Volume 88.3 fL (80-100); Mean Platelet Volume 10.4 fL (7.4-10.4); Monocytes # (auto) 1.21 K/uL (0.11-0.59); Monocytes % (auto) 6.7 %; Neutrophils # (auto) 14.21 K/uL (1.4-6.5); Neutrophils % (auto) 79.1 %; Platelet Count 141 K/uL (130-400); RDW Coefficient of Variation 17.3 % (11.5-14.5); RDW Standard Deviation 55.4 fL (36.4-46.3); Red Blood Count 3.26 M/uL (4.2-5.4); White Blood Count 17.98 K/uL (4.8-10.8)
[2019-09-14 08:01] LABS: Albumin Level 2.7 gm/dl (3.4-5.0); BUN Creatinine Ratio 17.4 (10-20); Calcium 7.9 mg/dl (8.5-10.1); Creatinine Clr Calc Pharmacy 53.5 ml/min; Est GFR (African American) 98.7; Est GFR (Non-African American) 85.2; Potassium 3.9 mmol/L (3.5-5.1)
[2019-09-14 08:04] LABS: Albumin Globulin Ratio 0.8 (0.9-2); Bilirubin,Total 0.8 mg/dl (0.2-1); Globulin 3.5 gm/dl (2.5-4.0); Total Protein 6.2 gm/dl (6.4-8.2)
[2019-09-14] MEDS: FAMOTIDINE 20 MG in SYRINGE 3 ML IV SCH ×2 (08:48→20:41)
[2019-09-14] MEDS: FLUOXETINE HCL 20 MG CAP PO SCH (08:49)
[2019-09-14] MEDS: PANTOprazole 40 MG TAB PO SCH (08:56)
[2019-09-14] MEDS: LACTOBACILLUS ACIDOPHILUS (FLORANEX) TAB PO SCH (08:56)
[2019-09-14] MEDS: FIDAXOMICIN 200 MG TAB PO SCH ×2 (08:56→20:41)
[2019-09-14] MEDS: FOLIC ACID 1 MG TAB PO SCH (08:57)
[2019-09-14] MEDS: CLOPIDOGREL BISULFATE 75 MG TAB PO SCH (08:57)
--- NOTE | 2019-09-14 11:46 | Hospitalist Progress Note ---
Date of Service September 14, 2019 Assessment & Plan (1) Recurrent colitis due to Clostridioides difficile: 1. Recurrent colitis due to Clostridioides difficile: -c/w Dificid 200mg PO bid -lactobacillus acidophilus 4 tabs PO qd -full liquid diet as tolerated -NS 80mL/hr q12h -zofran 4mg IV q12h -famotidine 20mg IV q12h -pantoprazole 40mg PO qAM -acetaminophen 500mg PO q6h 2. Hypertension: -hold home carvedilol (6.25mg PO bid) and losartan (50mg PO qAM) due to relative hypotension 3. Depression: -c/w fluoxetine 20mg qAM 4. Cirrhosis of the liver 2/2 hemochromatosis (2) Diarrhea: (3) Leukocytosis: (4) Abdominal pain: Admission and Anticipated Discharge Date Admission Date: September 12, 2019 Supervising Physician Co-Signing Physician Notes I personally examined the patient and verified all hicks points of history and exam, discussed case, and agree with decision making with Dr Manuel. overall not really feeling any better. diarrhea still very loose/watery, not at all formed. when asked if it's slowing she says maybe a little, but also then separately notes that she's been going a lot, and that basically she's feeling a bout the same. ongoing belly pain. vitals noted nad heent nc at mmm breathing unlabored no accessory muscles good effort skin no rashes no pallor or icterus. abd soft nd, mod diffuse tender no guarding no rebound. recurrent Cdiff colitis w probable sepsis (SIRS are WBC, just barely below criteria for HR and temp, but appearing clinically quite ill with this) - continue dificid for now, but the small improvement she gained from admission to yesterday has not really continued and she is still quite ill. add PO vanco, flagyl. not showing ileus/megacolon to require vanco enema - but follow cl osely. given that she had this after cephalexin for an eye procedure -- and that this was all the better part of a year since the last she had an episode of Cdiff, it is likely to her benefit that she would be on proph vanco anytime she needs other antibiotics moving forward. DVT proph - ambulation and SCDs otherwise as above Subjective Patient was seen at bedside. Patient reports her symptoms are the same as yesterday with only mild if any improvement. She is in good spirits and is optimistic about her recovery. Review of Systems Constitutional: + fatigue and + weakness; no chills and no sweats Respiratory: no cough and no wheezing Cardiovascular: no chest pain, no palpitations, no syncope and no edema Physical Exam Constitutional: + ill appearing; no acute distress Respiratory: no respiratory distress, no labored breathing and does not use accessory muscles Gastrointestinal (Abdomen): Inspection/Auscultation: abdomen not distended Percussion/Palpation: + abdomen tender (exquisitely tender to deep palpation in all quadrants) and abdomen soft; no guarding and abdomen not rigid Results & Data Results & Data ([facility]) Vital Signs (Past 12 Hours) Vital Signs Temp Pulse Resp BP Pulse Ox 09/14/19 08:00 36.7 C 70 18 126/76 96 (1) Abdominal pain Abdominal location: unspecified location Qualified Code(s): R10.9 - Unspecified abdominal pain
[2019-09-14] MEDS ORDERED: VANCOMYCIN HCL 250 MG/5 ML SOLN PO STA (16:57)
[2019-09-14] MEDS ORDERED: RASPBERRY SYRUP 5 ML UDP PO STA (16:57)
--- NOTE | 2019-09-14 17:03 | Gastroenterology Progress Note ---
Date of Service September 14, 2019 Assessment & Plan (1) Recurrent colitis due to Clostridioides difficile: I think she has this despite neg toxin. Stool culture negative so far. . Discussed with DR Gonzales and because of worsening overall with elevated WBC and increased pain and lower CO2 recommend adding in po vanco and IV flagyl. Would also go back to clears since pain worse with eating. diarrhea--presumably from Cdiff---improved abd pain--presumably from Cdiff---slightly worse. elevated WBC can be from Cdiff--worse colon thickenignn on CT --can be explained by Cdiff. cirrhosis--nothing acute to do chest pain--defer to Dr Gonzales--let him know she stated she had some inte rmittently. Admission and Anticipated Discharge Date Admission Date: September 12, 2019 Subjective CC : abd pain HPI Diarrhea has improved but abd pain in the lower abdomen particularly LLQ may be slightly worse. Food makes it worse. WBC is higher and CO2 lower. Review of Systems Respiratory: no dyspnea Cardiovascular: Additional Comments: intermittent mild chest pain but none currently. Physical Exam Constitutional: WD/WN, vitals as above Respiratory: normal respiratory effort, lungs clear to auscultation Cardiovascular: RRR, no murmur, no edema Gastrointestinal (Abdomen): pos bs, soft, guarding in LLQ but no rebound, Neurologic: PERRL, EOMI, accommodation nl, no face palsy, no dysarthria Psychiatric: A+Ox3, euthymic affect Results & Data ([facility]) Vital Signs (Past 12 Hours) Vital Signs Temp Pulse Pulse Resp BP Pulse Ox 09/14/19 15:48 36.6 C 74 17 154/81 H 97 09/14/19 08:00 36.7 C 70 18 126/76 96
[2019-09-14] MEDS: metroNIDAZOLE 500 MG/100 ML BAG IV SCH (18:00)
--- NOTE | 2019-09-14 18:39 | Billing Data ---
Date of Service September 14, 2019 Coding Level of Care Code 81420 Subseq Hosp Care Lvl 3
[2019-09-14] MEDS: VANCOMYCIN HCL 250 MG/5 ML SOLN PO SCH (22:53)
[2019-09-14] MEDS: RASPBERRY SYRUP 5 ML UDP PO SCH (22:53)
[2019-09-15] MEDS: metroNIDAZOLE 500 MG/100 ML BAG IV SCH ×3 (02:06→18:11)
[2019-09-15] MEDS: VANCOMYCIN HCL 250 MG/5 ML SOLN PO SCH ×3 (05:07→18:11)
[2019-09-15] MEDS: RASPBERRY SYRUP 5 ML UDP PO SCH ×3 (05:07→18:11)
[2019-09-15] MEDS: SODIUM CHLORIDE 0.9% 1000ML 1,000 ML IV SCH ×2 (05:07→18:12)
[2019-09-15 07:11] LABS: Basophils # (auto) 0.02 K/uL (0-0.2); Basophils % (auto) 0.1 %; Eosinophils # (auto) 0.14 K/uL (0-0.5); Hematocrit (blood only) 29.4 % (37-47); Hemoglobin 9.1 g/dL (12.0-16.0); Immature Granulocytes # (auto) 0.06 K/uL (0.00-0.02); Immature Granulocytes % (auto) 0.4 %; Lymphocytes # (auto) 2.24 K/uL (1.2-3.4); Lymphocytes % (auto) 16.7 %; Mean Corpuscular Hemoglobin 27.2 pg (25-34); Mean Platelet Volume 10.7 fL (7.4-10.4); Monocytes # (auto) 1.04 K/uL (0.11-0.59); Monocytes % (auto) 7.7 %; Neutrophils # (auto) 9.92 K/uL (1.4-6.5); Neutrophils % (auto) 74.1 %; Platelet Count 149 K/uL (130-400); RDW Coefficient of Variation 17.4 % (11.5-14.5); RDW Standard Deviation 55.7 fL (36.4-46.3); Red Blood Count 3.34 M/uL (4.2-5.4); White Blood Count 13.42 K/uL (4.8-10.8)
[2019-09-15 07:34] LABS: Albumin Level 2.6 gm/dl (3.4-5.0); BUN Creatinine Ratio 15.4 (10-20); Calcium 7.7 mg/dl (8.5-10.1); Creatinine Clr Calc Pharmacy 60.6 ml/min; Est GFR (African American) 102.8; Est GFR (Non-African American) 88.7; Magnesium 1.7 mg/dl (1.8-2.4); Potassium 3.7 mmol/L (3.5-5.1)
[2019-09-15 07:37] LABS: Albumin Globulin Ratio 0.7 (0.9-2); Bilirubin,Total 0.7 mg/dl (0.2-1); Globulin 3.6 gm/dl (2.5-4.0); Total Protein 6.2 gm/dl (6.4-8.2)
[2019-09-15] MEDS: ACETAMINOPHEN 500 MG TAB PO PRN ×2 (09:13→20:46)
--- NOTE | 2019-09-15 09:14 | Hospitalist Progress Note ---
Date of Service September 15, 2019 Assessment & Plan (1) Recurrent colitis due to Clostridioides difficile: 1. Recurrent colitis due to Clostridioides difficile: - improved with number of stools and overall feeling. -c/w Dificid 200mg PO bid -vanc PO and flagyl started yesterday -lactobacillus acidophilus 4 tabs PO qd -full liquid diet as tolerated -NS 80mL/hr q12h -zofran 4mg IV q12h -famotidine 20mg IV q12h -pantoprazole 40mg PO qAM -acetaminophen 500mg PO q6h 2. Hypertension: -hold losartan (50mg PO qAM) due to concern for relative hypotension -restarted home carvedilol (6.25mg PO bid) because pt had multiple blood pressure elevations (150s systolic w/ a reading of 174/85) 3. Depression: -c/w fluoxetine 20mg qAM 4. 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 Hatfield and agree with the findings and care plan. Subjective Severity of diarrhea about the same, not improved. Freq diarrhea provoked with even orange juice. Has nausea, diarrhea and abd pain Denies urinary symptoms. States that on initial ED presentation, presented w/ L flank pain, that has since migrated to L abd. Review of Systems Review of Systems: Constitutional: Denies fever, chills, malaise, weight change Eyes: Denies vision change Cardiovascular: Denies Chest pain, extremity swelling Respiratory: Denies shortness of breath, difficulty breathing Gastrointestinal: Denies vomiting, constipation Genitourinary: Denies urinary symptoms including dysuria Musculoskeletal: Denies weakness Integumentary:Denies rash, lesions, bruising Neurological: Denies headache, numbness, tingling, focal weakness Physical Exam Physical Exam: General: A&Ox3. NAD. Cooperative. HEENT: Atraumatic, normocephalic. Pulm: CTAB A&P. -wheezes, -rales, -rhonchi. Symmetrical chest rise. No increase work of breathing. No respiratory distress. Cardiac: RRR, -mrg. Radial pulses intact and symmetrical. Abdominal: Diffuse TTP, nondistended, soft. +CVA tenderness on L flank. Results & Data Results & Data ([facility]) Vital Signs (Past 12 Hours) Vital Signs Temp Pulse Resp BP Pulse Ox 09/15/19 07:18 36.3 C L 66 16 149/80 H 94 09/14/19 23:07 36.7 C 71 16 155/81 H 94 CBC Results Results Complete Blood Count Results: RBC 3.34 M/uL (4.2-5.4) L 09/15/19 WBC 13.42 K/uL (4.8-10.8) H 09/15/19 Hgb 9.1 g/dL (12.0-16.0) L 09/15/19 Hct 29.4 % (37-47) L 09/15/19 Plt Count 149 K/uL (130-400) 09/15/19 Chemistry ([facility]) Results [facility] Results: Sodium 141 mmol/L (136-145) 09/15/19 Potassium 3.7 mmol/L (3.5-5.1) 09/15/19 Chloride 115 mmol/L (98-107) H 09/15/19 BUN 9 mg/dl (7-18) 09/15/19 Creatinine 0.61 mg/dl (0.6-1.2) 09/15/19 Glucose 98 mg/dl (70-99) 09/15/19 (1) Abdominal pain Abdominal location: unspecified location Qualified Code(s): R10.9 - Unspecified abdominal pain
[2019-09-15] MEDS: LACTOBACILLUS ACIDOPHILUS (FLORANEX) TAB PO SCH (09:16)
[2019-09-15] MEDS: PANTOprazole 40 MG TAB PO SCH (09:16)
[2019-09-15] MEDS: CLOPIDOGREL BISULFATE 75 MG TAB PO SCH (09:16)
[2019-09-15] MEDS: FOLIC ACID 1 MG TAB PO SCH (09:16)
[2019-09-15] MEDS: FLUOXETINE HCL 20 MG CAP PO SCH (09:22)
[2019-09-15] MEDS: FIDAXOMICIN 200 MG TAB PO SCH ×2 (09:31→20:44)
[2019-09-15] MEDS: FAMOTIDINE 20 MG in SYRINGE 3 ML IV SCH ×2 (10:18→20:46)
--- NOTE | 2019-09-15 15:55 | Progress Notes ---
DATE: 09/15/2019 SUBJECTIVE: The patient reports that her abdominal pain has subsided today and she is eager to advance her diet. She is tolerating clear liquids. She had 3 soft bowel movements today. Objectively her white count has dropped from open nearly 18,000 down to 13,000. Blood pressure is 149/80, pulse 66, temperature is 36.3. PHYSICAL EXAMINATION: ABDOMEN: Soft and nontender. IMPRESSION: The patient is improving on the addition of IV Flagyl and p.o. vancomycin to her Dificid which is on her third day today. I plan on advancing to a full liquid diet tonight and if she tolerates that, we can advance her to a low fiber diet tomorrow with anticipation of discharging her if she continues to do well and her white count drops continuously.
[2019-09-15] MEDS: carvediloL 6.25 MG TAB PO SCH (20:45)
[2019-09-16] MEDS: metroNIDAZOLE 500 MG/100 ML BAG IV SCH ×2 (01:02→10:03)
[2019-09-16] MEDS: RASPBERRY SYRUP 5 ML UDP PO SCH ×3 (01:02→11:43)
[2019-09-16] MEDS: VANCOMYCIN HCL 250 MG/5 ML SOLN PO SCH ×3 (01:02→11:43)
[2019-09-16] MEDS: SODIUM CHLORIDE 0.9% 1000ML 1,000 ML IV SCH (05:33)
[2019-09-16] MEDS: carvediloL 6.25 MG TAB PO SCH (08:17)
[2019-09-16] MEDS: FOLIC ACID 1 MG TAB PO SCH (08:17)
[2019-09-16] MEDS: LACTOBACILLUS ACIDOPHILUS (FLORANEX) TAB PO SCH (08:18)
[2019-09-16] MEDS: CLOPIDOGREL BISULFATE 75 MG TAB PO SCH (08:18)
[2019-09-16] MEDS: PANTOprazole 40 MG TAB PO SCH (08:19)
[2019-09-16] MEDS: ACETAMINOPHEN 500 MG TAB PO PRN (08:19)
[2019-09-16 08:25] LABS: Basophils # (auto) 0.01 K/uL (0-0.2); Basophils % (auto) 0.1 %; Eosinophils # (auto) 0.16 K/uL (0-0.5); Eosinophils % (auto) 1.8 %; Hematocrit (blood only) 28.6 % (37-47); Hemoglobin 8.9 g/dL (12.0-16.0); Immature Granulocytes # (auto) 0.03 K/uL (0.00-0.02); Immature Granulocytes % (auto) 0.3 %; Lymphocytes # (auto) 1.34 K/uL (1.2-3.4); Lymphocytes % (auto) 15.1 %; Mean Corpuscular Hgb Conc 31.1 g/dL (32-36); Mean Corpuscular Volume 86.7 fL (80-100); Monocytes # (auto) 0.87 K/uL (0.11-0.59); Monocytes % (auto) 9.8 %; Neutrophils # (auto) 6.48 K/uL (1.4-6.5); Neutrophils % (auto) 72.9 %; Platelet Count 175 K/uL (130-400); RDW Coefficient of Variation 17.3 % (11.5-14.5); RDW Standard Deviation 54.8 fL (36.4-46.3); White Blood Count 8.89 K/uL (4.8-10.8)
[2019-09-16] MEDS: FIDAXOMICIN 200 MG TAB PO SCH (08:46)
[2019-09-16] MEDS: FAMOTIDINE 20 MG in SYRINGE 3 ML IV SCH (08:47)
[2019-09-16] MEDS: FLUOXETINE HCL 20 MG CAP PO SCH (08:47)
[2019-09-16 09:03] LABS: Albumin Level 2.8 gm/dl (3.4-5.0); BUN Creatinine Ratio 10.1 (10-20); Calcium 7.9 mg/dl (8.5-10.1); Creatinine Clr Calc Pharmacy 58.6 ml/min; Est GFR (African American) 101.7; Est GFR (Non-African American) 87.7; Potassium 3.4 mmol/L (3.5-5.1)
[2019-09-16 09:07] LABS: Albumin Globulin Ratio 0.8 (0.9-2); Bilirubin,Total 0.9 mg/dl (0.2-1); Globulin 3.5 gm/dl (2.5-4.0); Total Protein 6.3 gm/dl (6.4-8.2)
--- NOTE | 2019-09-16 09:47 | Hospitalist Progress Note ---
Date of Service September 16, 2019 Assessment & Plan (1) Recurrent colitis due to Clostridioides difficile: 1. Recurrent colitis due to Clostridioides difficile: - (to discuss w/ attending during rounds) consider empirically treating for L pyelonephritis given patient's L CVA tenderness Rocephin 1g IV daily while inpatient, transition to PO abx after 3 days -post-round update: patient had paraspinal tenderness and no cva tenderness on reexamination. number of stools also decreased. will stay course treating for c diff. -c/w Dificid 200mg PO bid -vanc PO and flagyl started yesterday -lactobacillus acidophilus 4 tabs PO qd -full liquid diet as tolerated -NS 80mL/hr q12h -zofran 4mg IV q12h -famotidine 20mg IV q12h -pantoprazole 40mg PO qAM -acetaminophen 500mg PO q6h -09/16/19: showing improvement on new c diff regimen. lower abd pain improved to mild 2. Hypertension: -hold losartan (50mg PO qAM) due to concern for relative hypotension -restarted home carvedilol (6.25mg PO bid) because pt had multiple blood pressure elevations (150s systolic w/ a reading of 174/85) 3. Depression: -c/w fluoxetine 20mg qAM 4. 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 now only mild diffuse lower abd ros neg for f/c, cp, sob, constip, urinary, numb/weak/ting mild HELM, usual type. nurse will give tylenol mild occasional cough, dry. not tender to palpation mild dry cough. phys exam normal heart lungs. dry mm. dp pulses good. went 6 times in last 3 hours. thinks c diff improving wants to go home look at blood counts. dispo tomoish? coughing every few minutes. today was first. came in w/ aches and pains subsided a little. came back today. no runny nose, sore throat, fever, chills no sick contact. no recent travel watch bp Physical Exam Physical Exam: General: A&Ox3. NAD. Cooperative. HEENT: Atraumatic, normocephalic. Pulm: CTAB A&P. -wheezes, -rales, -rhonchi. No respiratory distress. Cardiac: RRR, -mrg. Radial pulses intact and symmetrical. DP pulses 2+ bilaterally. No chest wall tenderness to palpation. Abdominal: Nontender to light palpation, nondistended, soft. Results & Data Results & Data ([facility]) Vital Signs (Past 12 Hours) Vital Signs Temp Pulse Resp BP Pulse Ox 09/16/19 08:01 36.7 C 72 16 178/99 H 96 09/15/19 23:17 36.7 C 71 16 147/79 H 93 (1) Abdominal pain Abdominal location: unspecified location Qualified Code(s): R10.9 - Unspecified abdominal pain
--- NOTE | 2019-09-16 23:35 | Discharge Summary ---
Date of Service September 16, 2019 Admission HPI Per Admitting Provider The patient is a 74-year-old female with a past medical history including Vanco resistant C. difficile colitis, hypertension, superior mesenteric artery stenosis, anemia, hyperlipidemia, depression, hypertension, right bundle branch block, hemochromatosis, liver cirrhosis and aortic dissection. The patient presents to the emergency department with a recurrence of diarrhea along with abdominal pain and fever, reminiscent of her previous episodes of C. difficile colitis. She reportedly had a recurrence of C. difficile in the past after having completed course of vancomycin, but had not been on any daily prophylaxis at that time. She was changed to Dificid at that time, and today, per recommendation from Dr. aJsmine of gastroenterology, received initial dose of Dificid treatment while in the ED tonight. Admission Exam Per Admitting Provider The patient is awake, alert and oriented 3, well developed and well nourished, normocephalic and atraumatic, lying in bed and in no acute distress. HEENT--PERRL, EOMI, mucous membranes and oropharynx dry. Neck--supple. No JVD. No bruits. Thyroid normal, trachea midline, no adenopathy. Heart--normal S1 and S2. No murmurs, rubs or gallops. Lungs--clear bilaterally, no respiratory distress, no accessory muscle use. Abdomen--normal bowel sounds and soft. Mild left lower quadrant tenderness. Nondistended Extremities--no cyanosis or clubbing. No edema. Dermatologic--normal skin turgor, normal color, no abnormal lymph nodes, no rash. Neurologic--cranial nerves II through XII grossly intact. Rheumatologic--normal range of motion. Psychiatric--normal affect. Principal Diagnosis recurrent C. diff colitis Discharge Exam General: A&Ox3. NAD. Cooperative. HEENT: Atraumatic, normocephalic. Pulm: CTAB A&P. -wheezes, -rales, -rhonchi. No respiratory distress. Cardiac: RRR, -mrg. Radial pulses intact and symmetrical. DP pulses 2+ bilaterally. No chest wall tenderness to palpation. Abdominal: Nontender to light palpation, nondistended, soft. Discharge Data Allergies Allergy/AdvReac Type Severity Reaction Status Date / Time pollen extracts Allergy Intermediate Swelling Verified 09/12/19 22:48 of throat codeine AdvReac Intermediate vomiting Verified 09/12/19 22:48 Zkawitw-Ipy-Umr Reductase AdvReac Intermediate MUSCLE AND Verified 09/12/19 22:48 Inhibitor BODY ACHES Consultations 09/12/19 22:40 ED Decision to Admit Stat 09/13/19 02:27 Consult Case Management - Discharge Planning Routine Consult Gastroenterology Routine Ordered Studies 09/12/19 19:30 CT abd pelvis wo con Stat Hospital Course (1) Recurrent colitis due to Clostridioides difficile: Aysha Perry is a 74 year old F w/ hx of recurrent C. diff colitis, HTN, descending thoracic aortic stent graft, and liver cirrhosis secondary to hemochromatosis who presented w/ a week of diarrhea and abdominal pain status post antibiotics for opthalmology surgery 3 weeks prior (no prophylaxis). To Do As Outpatient: 1. Complete Flagyl 10 day course + vancomycin pulse ((125 mg PO 4x/day for 14 days)-> (125 mg PO 2x/day for 7 days)-> (125 mg PO 1x/day for 7 days)->(125 mg PO every 2 days for 4 weeks)). 2. Consider C. diff prophylaxis prior to future antibiotic use 3. Monitor for worsening of abdominal pain or diarrhea C. difficile colitis, first recurrence Aysha presented with abdominal pain and diarrhea ~3 weeks after administration of antibiotics for opthamology surgery. She has a hx of failed PO vancomycin treatment for C diff one year ago. GI was consulted on admission, and she was initially placed on Dificid. Due to lack of clinical improvement and an uptrending leukocytosis, oral vancomycin and Flagyl were added. She was C. diff gene positive, antigen negative. Given her presentation and past history this was thought to be a false negative, and she was continued on treatment C. diff. 09/12/19 CT abd/pelv consistent w/ nonspecific pancolitis w/ mild wall thickening and edema throughout colon. She experienced transient paraspinal TTP c/w irritation from colitis and abdominal pain which improved. She experienced transient CVA tenderness without an infected UA or other urinary symptoms, and this was thought to be due to referred pain. She began to clinically improve, and cholestyramine was not added to her treatment regimen. She continued to clinically improve over the next day and was hemodynamically stable. She was discharged to complete a pulsed taper of vancomycin and 10 day course of Flagyl with followup to her PCP. HTN On admission day, held home carvedilol and losartan because of relative hypotension. Her blood pressure improved with treatment as above and carvedilol was restarted. Depression -stable during admission -home fluoxetine 20mg qAM of which patient received 1 dose of but refused on subsequent days Cirrhosis of liver secondary to hemochromatosis Stable mild baseline transaminitis was present, but remained baseline without signs of acute liver decompensation. DVT prophylaxis SCDs were used for DVT prophylaxis, she showed no signs of DVT during admission. Total Time Total Time Spent Total Time Spent (In Minutes): Please see attending documentation. Discharge Plan Discharge Items Patient Disposition: Home - Self-Care Reason For Visit: RECURRENT C DIFF COLITIS Discharge Diagnosis: c. diff colitis Activity: Per Instructions section Non-emergency contact: Primary Care Provider Call non-emergency contact if: your symptoms worsen Follow-up/Referrals: Dilan Palma [Physician] - 09/18/19 7:40 am Beatris Noriega PA-C [Primary Care Provider] - 09/26/19 4:10 pm (APPT WITH DR. QUINTERO ) Diet: Regular Addtl Attending Provider Instructions: c diff You have a history of c diff infection were admitted to the hospital for abdominal pain and diarrhea after recent antibiotics use. Initially, we treated you with Dificid, but your symptoms did not improve and your white count (suggestive of infection) continued increasing. We then added oral Vancomycin and oral Flagyl in addition to the Dificid. After 2 days, you noted that it felt like your symptoms were improving. The white count also decreased back to the normal range. We are discharging you on Dificid together with Flagyl given the history of your c diff treatment. The Dificid will be twice a day for 10 days while the Flagyl will be 3 times a day for 10 days. Follow up with your primary care doctor and GI doctor. follow up You are being scheduled for a follow-up appointment with your primary care physician as well as your GI doctor. You should be seen for a follow-up appointment in 1 to 2 weeks. You should receive a call to confirm your appointment, if you do not receive a call within 48 hours to confirm your appointment please call your primary care provider's office at return precautions If you develop any new or worsening symptoms including fever, chills, sweats, chest pain, chest pressure, difficulty breathing, uncontrolled nausea/vomiting, rash, wheezing, passing out or nearly passing out, bleeding, bloody bowel movements, or other new or concerning symptoms please call your primary care physician, or call 911 for re-evaluation in the emergency department if you are very concerned. Pending Studies at Discharge: No Stand-Alone Forms: My [facility], Smoking Cessation Medications and DC Order Prescriptions: New metronidazole [Flagyl] 500 mg tablet 500 mg PO TID 10 Days Qty: 30 RF: 0 vancomycin 125 mg capsule See Rx Instructions .ROUTE .COMPLEX Qty: 100 RF: 0 Continued losartan 50 mg tablet 50 mg PO QAM RF: 0 carvedilol 6.25 mg tablet 6.25 mg PO BID RF: 0 clopidogrel 75 mg tablet 75 mg PO QAM RF: 0 acetaminophen [Tylenol Extra Strength] 500 mg Tablet 500 mg PO DIRECTED PRN (Reason: Pain) RF: 0 fluoxetine 20 mg capsule 20 mg PO QAM RF: 0 folic acid 1 mg tablet 1 mg PO QAM RF: 0 pantoprazole 40 mg Tablet,Delayed Release (Dr/Ec) 40 mg PO QAM RF: 0 Probiotic 3 billion cell Capsule 3,000 mmu cells PO UD RF: 0 Discharge Orders: Discharge Order (Routine); Ordered 09/16/19 Ordered By: Diogo Hatfield Admission Data Admit Date/Time: 09/12/19 23:50 Attending Provider: Kristin Love Admit Provider: Giovanni Siddiqui Primary Care Provider: Beatris Noriega Other Providers: Giovanni Siddiqui ; Ayush Jasmine ; Hu Manuel ; Sajan Gonzales Other Interventions: Discharge Summary Assessment (RN) Last Done: 09/16/19 12:08 DC Date/Time DO NOT enter until pt leaves facility: 09/16/19 14:06 Supervising Physician Co-Signing Physician Notes Resident Physician Supervision Note: I independently interviewed and examined the patient and verified the hicks history and physical, reviewed labs and image studies, discussed the case with the resident Dr. Hatfield and agree with the findings and care plan. Resident Activity Tracking Resident Involvement: Resident Care Provided Care Provided: Adult Hospital Medicine
== END 2019-09-16 14:06 | disposition home or self-care (01) | DRG 872 ==
LOC: ED 17:27 → SUATTDRO 23:50 → 3N 23:50